=== PATIENT | male | born 1950 | race Caucasian/White ===

== ENCOUNTER 2024-11-16 15:48 | Outpatient (OUT) | payer MEDICARE, OTHER, SELFPAY ==
--- OUTSIDE RECORDS SUMMARY | 2024-07-09 06:00 | XMS_ITS ---
Author Organization [facility] Address [address] [place] [address] [place] [address] Support Name Relationship Address Phone Isabela Agustin Emergency Contact 04/[address] [place] [id number] Mk Agustin Guarantor Unknown Unavailable Care Team Providers Care Cookee Name Role Phone Erik Lopez Primary Care Provider UnavailJamarcus Moncada Unavailable [phone] REASON FOR VISIT rfc Encounters Encounter Location Date Provider Diagnosis [facility] [address] [place] [address] 07/09/2024 Jamarcus Truong Plan Of Treatment No Information Progress Notes * Mk AGUSTIN FDOB: [birth year] (74 yo M)Acc No.[id number]:07/09/2024 Patient: Mk MARTINEZ Provider: Rodney Truong DPM :1950 A ge:74 Y S ex:Male Date:07/09/2024 Phone: Address: [address] [place], [place] [phone] Pcp:Erik Lopez Subjective: * Chief Complaints: * 1 . Rfc. * Medical History: Objective: * Vitals: Assessment: Plan: * Treatment: * Images: * Electronic signature of [place] in DONOVAN Truong on 11/05/2024 at 03:26 PM EDT Sign off status: Pending * Provider: Rodney Truong DPM Date: 07/09/2024 Generated for [place] ng/Falubnag/eTransmitting on: 0 11/05/2024 03:26 PM EDT
--- OUTSIDE RECORDS SUMMARY | 2024-07-09 06:00 | XMS_ITS ---
Author Organization [facility] Address [address] [place] [address] Dr Hazel [place] [address] Support Name Relationship Address Phone Isabela Agustin Emergency Contact 04/01 [place] [phone] Mk Agustin Guarantor Unknown Unavailable Care Team Providers Care Cnc Mill Programmer Name Role Phone Erik Lopez Primary Care Provider UnavailJamarcus Moncada Unavailable [phone] REASON FOR VISIT rfc Encounters Encounter Location Date Provider Diagnosis [facility] [address] [place] [address] 07/09/2024 Jamarcus Truong Plan Of Treatment No Information Progress Notes * Mk AGUSTIN FDOB: [birth year] (74 yo M)Acc No.[id number]:07/09/2024 Patient: Mk MARTINEZ Provider: Rodney Truong DPM :1950 A ge:74 Y S ex:Male Date:07/09/2024 Phone: Address: [address] [place], [place] [phone] Pcp:Erik Lopez Subjective: * Chief Complaints: * 1 . Rfc. * Medical History: Objective: * Vitals: Assessment: Plan: * Treatment: * Images: * Electronic signature of [place] in DON[place] Truong on 11/16/2024 at 03:50 PM EDT Sign off status: Pending * Provider: Rodney Truong DPM Date: 0 07/09/2024 Generated for [place] ng/Falubnag/eTransmitting on: 0 11/16/2024 03:50 PM EDT
--- OUTSIDE RECORDS SUMMARY | 2024-10-25 23:59 | XMS_ITS | Continuity of Care Document ---
Demographics Address [address] [place], [place] [phone] Mobile Email Address Preferred Language en Marital Status Evangelical Affiliation Congregational Race White Ethnic Group Not or Lati no Author Organization [facility] Address [address] [place] [address] Support Name Relationship Address Phone MORR, SELENE spouse Unknown Unavailable MORR, SELENE S spouse Unknown Unavailable MORR, SELENE S spouse Unknown Unavailable MORR, SELENE S spouse Unknown Unavailable MORR, SELENE S spouse Unknown Unavailable MORR, SELENE S spouse Unknown Unavailable MORR, SELENE S spouse Unknown Unavailable MORR, SELENE S spouse Unknown Unavailable MORR, SELENE S spouse Unknown Unavailable MORR, SELENE S spouse Unknown Unavailable MORR, SELENE S spouse Unknown Unavailable MORR, SELENE S spouse Unknown Unavailable MORR, SELENE S spouse Unknown Unavailable MORR, SELENE S spouse Unknown Unavailable MORR, SELENE S spouse Unknown Unavailable MORR, SELENE S spouse Unknown Unavailable MORR, SELENE S spouse Unknown Unavailable MORR, SELENE S spouse Unknown Unavailable MORR, SELENE S spouse Unknown Unavailable MORR, SELENE S spouse Unknown Unavailable MORR, SELENE S spouse Unknown Unavailable MORR, SELENE S spouse Unknown Unavailable MORR, SELENE S spouse Unknown Unavailable MORR, SELENE S spouse Unknown Unavailable MORR, SELENE S spouse Unknown Unavailable MORR, SELENE S spouse Unknown Unavailable Care Team Providers Care Audiovisual Tech Name Role Phone Erik Lopez Primary Care Physician Unavail able Encounter FT_AMBFIN [id number] Date(s): 10/25/24 - 10/25/24 [facility] [address] [place] [address] Encounter Diagnosis Hypertension(Discharge Diagnosis) - 10/25/24 Prediabetes(Discharge Diagnosis) - 10/25/24 Hemorrhoid(Discharge Diagnosis) - 10/25/24 Abdominal weakness(Discharge Diagnosis) - 10/25/24 Somatic dysfunction of lumbar region(Discharge Diagnosis) - 10/25/24 Adult BMI 29.0-29.9 kg/sq m(Discharge Diagnosis) - 10/25/24 Chronic systolic congestive heart failure(Discharge Diagnosis) - 10/22/24 Paroxysmal SVT (supraventricular tachycardia)(Discharge Diagnosis) - 10/25/24 Arthritis of lumbosacral spine(Discharge Diagnosis) - 10/25/24 Spasm of lumbar paraspinous muscle(Discharge Diagnosis) - 10/25/24 Hip flexor tightness(Discharge Diagnosis) - 10/25/24 Somatic dysfunction of sacral spine(Discharge Diagnosis) - 10/25/24 Somatic dysfunction of lower extremities(Discharge Diagnosis) - 10/25/24 Discharge Disposition: Home (Routine DC) Attending Physician: Erik Lopez DO Encounter Type: Clinic Allergies, Adverse Reactions, Alerts Substance Criticality Severity Reaction Reaction Severity Status Tape Skin tear Active penicillins Rash Active Vitamin B-12 Low criticality Mild Hives A ctive Assessment and Plan Future Appointments Appointment Date:12/21/2024 01:00:00 PM Scheduled Provider: Location:[facility] Appointment Type: Medicare Wellness Subsequent Appointment Date:12/30/2024 09:45:00 AM Scheduled Provider:Hussein Cruz PA-C [facility]iology Follow Up (FT) Appointment Date:12/31/2024 08:20:00 AM Scheduled Provider:Erik Lopez DO Location:[facility] Appointment Type: Procedure Future Scheduled Tests Laboratory* HgbA1c 04/06/24 * TSH With T4fr Reflex 04/06/24 * CBC w/ Auto Diff 04/06/24 * Comprehensive Metabolic Panel 04/06/24 * Lipid Panel 04/06/24 Immunizations Given and Recorded Vaccine Date Status Refusal Reason influenza virus vaccine, inactivated 02/17/24 Give n influenza virus vaccine, inactivated 01/28/23 Give n influenza virus vaccine, inactivated 01/23/22 Give n influenza virus vaccine, inactivated 01/09/21 Paolo rded influenza virus vaccine, inactivated 01/28/20 Paolo rded influenza virus vaccine, inactivated 02/09/19 Paolo rded influenza virus vaccine, inactivated 01/14/18 Paolo rded influenza virus vaccine, inactivated 01/08/17 Paolo rded influenza virus vaccine, inactivated 12/29/15 Paolo rded diphtheria/pertussis, acel/tetanus adult 03/11/23 Given diphtheria/pertussis, acel/tetanus adult 05/14/10 Recorded SARS-CoV-2 (COVID-19) [id number] 03/15/22 Given SARS-CoV-2 (COVID-19) mRNA BNT-162b2 vax 02/09/21 Recorded SARS-CoV-2 (COVID-19) mRNA BNT-162b2 vax 1 06/05/20 Recorded SARS-CoV-2 (COVID-19) mRNA BNT-162b2 vax 2 05/15/20 Recorded SARS-CoV-2 (COVID-19) mRNA BNT-162b2 vax 05/05/20 Recorded pneumococcal 23-valent vaccine 03/21/20 Recorded pneumococcal 13-valent vaccine 02/15/19 Recorded influenza, whole 04/24/12 Recorded Not Given Vaccine Date Status Refusal Reason influenza virus vaccine, inactivated 12/02/23 Not Given Patient Refuses 1Result Comment: 2021-09-12: [id number] 2Result Comment: 2021-09-12: TPV70 Medications amiodarone 200 mg Tab 0.5, Oral, Daily, 100mg, Refills(s) 0 Start Date: 07/28/24 Status: Ordered Repeat number: 1 aspirin 81 mg Oral EC Tab 81 mg = 1 tab(s), Oral, Daily, # 30 tab(s), Refills(s) 3, Pharmacy: [facility] #[id number], 180, cm, 02/11/22 13:34:00 EST, Height/Length Dosing, 97, kg, 02/11/22 13:34:00 EST, Weight Dosing Start Date: 02/11/22 Status: Ordered Quantity: 30.0 Unit: tab(s) Repeat number: 4 atorvastatin 40 mg Tab 40 mg = 1 tab(s), Oral, Daily, # 90 tab(s), Refills(s) 3, Pharmacy: [facility]/pharmacy #[id number], 177, cm, 11/03/23 14:42:00 EDT, Height/Length Dosing, 96.2, kg, 11/03/23 14:42:00 EDT, Weight Dosing Start Date: 11/03/23 Status: Ordered Quantity: 90.0 Unit: tab(s) Repeat number: 4 carvedilol 3.125 mg Tab 3.125 mg = 1 tab(s), Oral, BID, # 180 tab(s), Refills(s) 3, [id number] 177, cm, 11/03/23 14:42:00 EDT, Height/Length Dosing, 96.2, kg, 11/03/23 14:42:00 EDT, Weight Dosing Start Date: 11/03/23 Status: Ordered Quantity: 180.0 Unit: tab(s) Repeat number: 4 diazepam 2 mg Tab TAKE 1 TABLET BY MOUTH EVERY 8 HOURS Start Date: 10/11/24 Status: Ordered Repeat number: 1 docusate sodium 100 mg Cap 100 mg = 1 cap(s), Oral, Daily, PRN for constipation, # 20 cap(s), Refills(s) 0 Start Date: 07/28/24 Status: Ordered Quantity: 20.0 Unit: cap(s) Repeat number: 1 duloxetine 30 mg oral delayed release capsule 30 mg = 1 cap(s), Oral, BID, # 180 cap(s), Refills(s) 4, [id number], cm, 12/02/23 9:24:00 EDT, Height/Length Dosing, 96.8, kg, 12/02/23 9:24:00 EDT, Weight Dosing Start Date: 12/02/23 Status: Ordered Quantity: 180.0 Unit: cap(s) Repeat number: 5 Indications: Other cervical disc degeneration, unspecified cervical region; Fish Oil Oral, Refill(s) 0 Start Date: 09/12/21 Status: Ordered Repeat number: 1 Jardiance 10 mg oral tablet 10 mg = 1 tab(s), Oral, qAM, Refills(s) 0 Start Date: 07/28/24 Status: Ordered Repeat number: 1 Misc Medication Daily Start Date: 11/01/22 Status: Ordered Repeat number: 1 multivitamin with minerals Oral, Daily, Refill(s) 0 Start Date: 09/10/22 Status: Ordered Repeat number: 1 spironolactone 25 mg Tab 12.5 mg = 0.5 tab(s), Oral, Daily, Refills(s) 0 Start Date: 07/28/24 Status: Ordered Repeat number: 1 Turmeric mg, Oral, Daily, Refill(s) 0 Start Date: 09/12/21 Status: Ordered Repeat number: 1 valsartan 40 mg Tab 40 mg = 1 tab(s), Oral, BID, short term rx -, X 7 day(s), # 14 tab(s), Refills(s) 0, Pharmacy: [facility]/pharmacy #[id number], 180, cm, 10/25/24 15:13:00 EDT, Height/Length Dosing, 96.9, kg, 10/25/24 15:09:00 EDT, Weight Dosing Start Date: 10/25/24 Stop Date: 11/01/24 Status: Ordered Quantity: 14.0 Unit: tab(s) Repeat number: 1 Indications: Essential (primary) hypertension; Problem List Condition Confirmation Course Effective Dates Status H ealth Status Informant Abdominal weakness Confirmed Active Anemia Confirmed Active Anxiety Confirmed Active Arthritis of lumbosacral spine Confirmed Active Shoulder arthritis Confirmed Active CMC arthritis Confirmed Active Hematuria Confirmed Active Nonischemic cardiomyopathy 1 Confirmed Active Carpal tunnel syndrome, bilateral Confirmed Active Cervical radiculopathy Confirmed Active Somatic dysfunction of cervical region Confirmed Active Cervical spondylosis Confirmed Active Chest pain Confirmed Active Chronic systolic congestive heart failure 2 Confirmed Active Claustrophobia Confirmed Active DDD (degenerative disc disease), cervical Confirmed Active Diastasis recti Confirmed Active Tortuous aorta 3 Confirmed Active Hip flexor tightness Confirmed Active Dyspnea on exertion Confirmed Active Hemorrhoid Confirmed Active History of penile implant Confirmed Active Hypertension Confirmed Active IT band syndrome Confirmed Active Cerumen impaction Confirmed Active Left ventricular hypertrophy Confirmed Active Lipoma of back Confirmed Active Cancer of prostate Confirmed Active PVC's (premature ventricular contractions) Confirmed Active Trapezius muscle spasm Confirmed Active LETITIA (obstructive sleep apnea) Confirmed Active Paroxysmal SVT (supraventricular tachycardia) Confirmed Active Pleuritis Confirmed Active Poor posture Confirmed Active Prediabetes Confirmed Active Radicular low back pain Confirmed Active Seborrhea Confirmed Active Skin lesion Confirmed Active Somatic dysfunction of head region Confirmed Active Somatic dysfunction of lower extremities Confirmed Active Somatic dysfunction of lumbar region Confirmed Active Somatic dysfunction of sacral spine Confirmed Active Somatic dysfunction of thoracic region Confirmed Active Somatic dysfunction of upper extremities Confirmed Active Spasm of cervical paraspinous muscle Confirmed Active Spasm of lumbar paraspinous muscle Confirmed Active 1Noted in 07/18/2022 cardio note, added per outpatient CDI policy. 2Added per outpatient CDI policy and Dr. Lopez query response based on:Problem list- Diastolic CHF 08/12/2024 outside records- Acute heart failure with reduced ef , page 6- history of unspecified cardiac arrhythmia 10/11/2024 cardio -3. Chronic systolic heart failure (I50.22: Chronic systolic (congestive) heart failure) Patient has history of CHF. EF was down to 35% per patient when he was in [facility]. Patient was started on Jardiance 10 mg daily, valsartan 40 mg daily, spironolactone 12.5 mg daily and has continued on carvedilol 3.125 mg twice daily. Patient has blood pressure on the low side of normal and does admit to some lightheadedness at times. Will have patient continue with current medications at this time. If needed discontinue medication, likely will be carvedilol given his low heart rate as well. Will have patient continue to monitor symptoms and contact us if she continues to have issues. Follow-up with me in 3 months or sooner if needed 04/08/2023 office note-6. Diastolic CHF (I50.30: Unspecified diastolic (congestive) heart failure) Chronic Stable Pending evaluation by specialist through [facility] Encouraged the patient to f/u as planned 04/12/2024 office note-History of Present Illness 73-year-old male with past medical history significant for anxiety, prostate cancer, carpal tunnel,degenerative disc disease, diastolic heart failure, sleep apnea, nonischemic cardiomyopathy, paroxysmal SVT, prediabetes, anxiety, hyperlipidemia patient of Dr. Lopez presents with cough congestionfor 4 days. COVID test at home was negative. COVID test here in the office was positive 09/21/2024 office note-July 30, 2024 - Cardiology - Hussein Cruz PA-C noted hospitalization while in [place] --- went to the ED for rectal bleed, found to have frequent PVCs evaluated with echo and left heart cath PVC ablation started on amiodarone for PVCs as well as carvedilol having some dizziness at home with low HR 1. PVCs on new meds -- requesting referral to EP cardiology *jo 2. CAD - recent cath in [place] revealed mild disease; on aspirin 81mg, atorvastatin 40mg and cardvedilol 3.125mg BID; asymptomatic 3. CHF - ef down to 35% -- started on jardiance 10mg, valsartan 40mg and spironolactone 12.5mg daily 3added per 04/07/2023 query response. Procedures Procedure Date Related Diagnosis Body Site Status Ablation 1 07/05/24 Completed Colonoscopy 2 07/04/24 Completed Catheterization of left heart 3 07/02/24 Completed Injection of steroid into sh oulder joint 04/02/24 Completed Injection of right shoulder 12/26/23 Completed Right shoulder injection 4 08/28/23 Completed Shoulder injection 5 03/28/23 Comp leted Epidural injection of cervic al spine using fluoroscopic guidance 6 10/16/22 Co mpleted MRI with sedation 09/13/22 Complet ed Catheterization of left heart 01/17/22 Completed Lipoma of back 7 Complete d Procedure 8 Completed Prostate 9 Completed Tooth extraction Complete d Tooth extraction Complete d Unlisted procedure, foot or toes Completed Vasectomy Completed 1Done at [facility] in [facility] 2Done at [facility] 3Done in [facility] 4100% until last week 5100% relief for 5 months 6C7/T1 TONO 25 % relief, can turn more to the left 7removal 8Infrapubic coloplast 9removed Social History Social History Type Response Smoking Status Never (less than 100 in lifetime);Never; Concerns about tobacco use in household: No entered on: 10/11/24 Sex Male Sex Representation Male (finding) Hospital Discharge Instructions Patient Education 10/25/2024 15:53:25 Heat Therapy, [id number] Heat Therapy Heat therapy can help ease sore, stiff, injured, and tight muscles and joints. Heat relaxes your muscles. This may help ease your pain and muscle spasms. What are the risks? If you have any of the following conditions, do not use heat therapy unless your doctor says it is okay. These conditions include: ??? New bruises. ??? Open wounds. ??? Any of these in the area being treated: ??? Healing wounds. ??? Infected skin. ??? Scarred skin. ??? Problems with how blood moves through your body (circulation). ??? Loss of feeling (numbness) in the part of your body that is being treated. ??? Unusual swelling of the part of the body that is being treated. ??? Blood clots. ??? Diabetes. ??? Heart disease. ??? Cancer. ??? Not being able to communicate pain. This may include young children and people who have problems with their brain function (dementia). How to use heat therapy There are different kinds of heat therapy. These include: ??? Moist heat pack. ??? Hot water bottle. ??? Electric heating pad. ??? Heated gel pack. ??? Heated wrap. ??? Warm water bath. Your doctor will tell you how to use heat therapy. In general, you should: 1. Place a towel between your skin and the heat source. 2. Leave the heat on for 20???30 minutes. Your skin may turn pink. 3. Take off the heat if your skin turns bright red. This is very important. If you cannot feel pain, heat, or cold, you have a greater risk of getting burned. Your doctor may also tell you to take a warm water bath. To do this: 1. Put a non-slip pad in the bathtub to prevent a fall. 2. Fill the bathtub with warm water. 3. Check the water temperature. 4. Soak in the water for 15???20 minutes, or as told by your doctor. 5. Be careful when you stand up after the bath. You may feel dizzy. 6. Pat yourself dry after the bath. Do not rub your skin to dry it. General recommendations for heat therapy ??? Be careful not to burn your skin when using heat therapy. High heat or using heat for a long time can cause gann. ??? Do not sleep while using heat therapy. Only use heat therapy while you are awake. ??? Check your skin during heat therapy. ??? Do not use heat therapy if you have a new injury, especially if you have swelling on the injured area. ??? Do not use heat therapy on areas of your skin that are already irritated, such as with a rash or sunburn. ??? Do not use heat therapy if your skin turns bright red. Contact a doctor if: ??? You have blisters, redness, swelling, or loss of feeling in the area where you use heat therapy. ??? You have new pain. ??? You have pain that gets worse. Summary ??? Heat therapy is the use of heat to help ease sore, stiff, injured, and tight muscles and joints. ??? There are different types of heat therapy. Your doctor will tell you which one to use. ??? Only use heat therapy while you are awake. ??? Watch your skin to make sure you do not get burned while using heat therapy. This information is not intended to replace advice given to you by your health care provider. Make sure you discuss any questions you have with your health care provider. Document Revised: 01/17/2021 Document Reviewed: 01/17/2021 ElseMineWhat Patient Education ?? 2023 [employer]. Follow Up Care 09/21/2024 12:27:05 With:Erik oLpez DO, GERALD, PED Address: [address] [place] [id number] When:1 month Comments:OMT PRN??- 40 min slotTo go instructions (for follow up):On the day of manipulation, I strongly encourage you??to to drink more water to help flush your system after today's treatmentWork on using your core muscles more when standing and sitting, and especially when leaning away from your centerline or when lifting thingsThis may take some concentration and work initially but it will eventually become more natural to youWork on shoulder retraction exercisesFor patients who can tolerate anti-inflammatories and/or tylenol, those medications can help provide some comfort while you work on optimizing functionGetting adequate rest is important for managing musculoskeletal painF/u 1 month or PRN Patient Care team information Care Team Personnel Name: Radha Shipman RN Position: FT Mail Inserter - Self Assign Member Role: Financial Counselor Name: Erik Lopez DO Position: FT Ambulatory - Primary Care Provider? Member Role: Primary Care Physician Address: [address] [place] [phone] [place] Care Team Related Persons Name: SELENE JAMES Name: SELENE JAMES Name: SELENE JAMES Name: SELENE JAMES Name: SELENE JAMES Insurance Providers Guarantor name: DOYLE Miller ERIKA Health Plan Information #: 1 Payer: NA Payer Identifier: [id number] Member Number: [id number] Group Number: [id number] Subscriber Identifier: [id number] Relationship to Subscriber: Self Coverage Type: MEDICARE Coverage Verification Date: 24 Telecom: ARLETH Address: Health Plan Information #: 2 Payer: ARLETH Payer Identifier: ARLETH Member Number: [id number] Group Number: [id number] Subscriber Identifier: [id number] Relationship to Subscriber: Self Coverage Type: PRIVATE HEALTH INSURANCE Coverage Verification Date: ARLETH Telecom: ARLETH Address:
--- OUTSIDE RECORDS SUMMARY | 2024-11-05 15:25 | XMS_ITS | Encounter Summary ---
Demographics Address [address] [place] [address] Home Phone Mobile Phone Phone Email Address Preferred Language ENG Marital Status Latter-Day Affiliation Unknown Race White Ethnic Group Not or Lati no Author Organization [facility] Address [facility] [place] [address] Support Name Relationship Address Phone Isabela Agustin Spouse [address] [place] [address] Care Team Providers Care Padding Machine Operator Name Role Phone Bipin Ornelas MD Primary Care Provider Nato Rosario MD Unavailable [phone] John BLANDON DO, Robert James Primary Care Provid er John BLANDON DO, Robert James Unavailable [phone] Source Comments In the event this information is protected by the Federal Confidentiality of Alcohol and Drug AbusePatient Records regulations: The Federal rules restrict any use of the information to criminally investigate or prosecute any alcohol or drug abuse patient.[facility] Encounter Details Date Type Department Care Team (Late st Contact Info) Description 11/11/2019 Patient Msg Urology [address] [place] [address] Erik Cassidy MD [address] [place] [address] PSA Social History Tobacco Use Types Packs/Day Years Used Date Smoking Tobacco: Never Smokeless Tobacco: Never Alcohol Use Standard Drinks/Week Comments Yes 0 (1 standard drink = 0.6 oz pur e alcohol) 3 drinks per week PHQ-2 Answer Date Recorded PHQ2 Score 0 09/03/2018 Sex and Gender Information Value Date Recorded Sex Assigned at Male 11/17/2019 1:04 AM EDT Legal Sex Male 9:48 AM EST Gender Identity Male 11/17/2019 1:04 AM EDT Sexual Orientation Bisexual 11/17/2019 1: 04 AM EDT COVID-19 Exposure Response Date Recorded In the last month, have you been in contact with someone who was confirmed or suspected to have Coronavirus / COVID-19? No / Unsure 11/10/2019 10:37 AM EDT documented as of this encounter Functional Status * Are you deaf or do you have serious difficulty hearing? Answer Date of Assessment Author No 09/04/2018 4:07 PM Isela Grier RN * Are you blind or do you have serious difficulty seeing, even when wearing glasses? Answer Date of Assessment Author No 09/04/2018 4:07 PM Isela Grier RN * Do you have serious difficulty walking or climbing stairs? Answer Date of Assessment Author No 09/04/2018 4:07 PM Isela Grier RN * Do you have difficulty dressing or bathing? Answer Date of Assessment Author No 09/04/2018 4:07 PM Isela Grier RN * Because of a physical, mental, or emotional condition, do you have difficulty doing errands alone such as visiting a doctor's office or shopping? Answer Date of Assessment Author No 09/04/2018 4:07 PM Isela Grier RN documented as of this encounter Mental Status * Because of a physical, mental, or emotional condition, do you have serious difficulty concentrating, remembering, or making decisions? Answer Entry Date Author No 09/04/2018 4:07 PM Isela Grier RN documented in this encounter Plan of Treatment Upcoming Encounters Date Type Department Care Team (Late st Contact Info) Description 12/29/2024 9:30 AM EDT Office Visit Orthopaedics [address] [place] [address] Mary Lemus PA-C [address] [place] [address] 4 month f/u 02/25/2025 2:00 PM EST Office Visit Urology [address] [place] [phone] Ellie Arroyo APRN.PERSONNEL RECORDS CLERK [address] [place] [address] FOLLOW UP 03/07/2025 10:00 AM EST Office Visit [facility] Laboratory [address] [address] Lab 03/14/2025 10:00 AM EST Office Visit Radiation Oncology [address] [place] [address] Sigifredo Corona MD [address] [place] [address] Lab 04/07/2025 9:30 AM EST Office Visit Urology [address] [place] [phone] Janell Hill MD [address] [place] [address] 6 month Cystoscopy documented as of this encounter Visit Diagnoses Not on filedocumented in this encounter Care Teams Padding Machine Operator Relationship Specialty Start Date End Date Bipin Ornelas MD [address] [place] [address] PCP - General Family Medicine 08/25/18 03/04/23 Erik Lopez II, DO [address] [place] [address] [place] [address] PCP - General Family Medicine 03/05/23 Nato Rosario MD [address] [place] [address] Physician Radiation Oncology 11/24/19 Erik oLpez II, DO [address] [place] [address] Referring Family Medicine 10/22/23 documented as of this encounter
--- OUTSIDE RECORDS SUMMARY | 2024-11-05 15:25 | XMS_ITS | Encounter Summary ---
Demographics Address [address] [place] [address] Home Phone Mobile Phone Phone Email Address Preferred Language ENG Marital Status Adventist Affiliation Unknown Race White Ethnic Group Not or Lati no Author Organization [facility] Address [address] [place] [address] Support Name Relationship Address Phone Isabela Agustin Spouse [address] [place] [address] Care Team Providers Care Class C Driver Name Role Phone Nato Rosario MD Unavailable [phone] John BLANDON DO, Robert James Primary Care [facility] er John BLANDON DO, Robert James Unavailable [phone] Source Comments In the event this information is protected by the Federal Confidentiality of Alcohol and Drug AbusePatient Records regulations: The Federal rules restrict any use of the information to criminally investigate or prosecute any alcohol or drug abuse patient.[facility] Encounter Details Date Type Department Care Team (Late st Contact Info) Description 08/08/2023 Patient Msg Pre Anesthesia [address] [place] [address] Provider, [facility] Appointment Social History Tobacco Use Types Packs/Day Years Used Date Smoking Tobacco: Never Smokeless Tobacco: Never Alcohol Use Standard Drinks/Week Comments Yes 0 (1 standard drink = 0.6 oz pur e alcohol) 3 drinks per week AUDIT-C Answer Date Recorded Q1: How often do you have a drink containing alc ohol? 2-3 times a week 11/25/2019 Average Number of Drinks Not on file 020 Frequency of Binge Drinking Not on file 10/30 PHQ-2 Answer Date Recorded PHQ-2 score 0 03/06/2023 Area Deprivation Index Answer Date Paolo rded National Score (1-100), lower number is lower ri sk 77 09/05/2022 State Score (1-10), lower number is lower risk 6 09/05/2022 Data from: https://www.neighborhoodatlas.[facility]/. Last address used for calculation [address] [facility] 09/05/2022 Sex and Gender Information Value Date Recorded Sex Assigned at Male 11/17/2019 1:04 AM EDT Legal Sex Male 9:48 AM EST Gender Identity Male 11/17/2019 1:04 AM EDT Sexual Orientation Bisexual 11/17/2019 1: 04 AM EDT documented as of this encounter [...] 9:30 AM EDT Office Visit Orthopaedics [address] [place] [address] Mary Lemus PA-C [address] [place] [address] 4 month f/u 02/25/2025 2:00 PM EST Office Visit Urology [address] [place] [address] Ellie Arroyo APRN.BENCH LATHE OPERATOR [address] [place] [address] FOLLOW UP 03/07/2025 10:00 AM EST Office Visit [facility] Laboratory [address] [place] [address] Lab 03/14/2025 10:00 AM EST Office Visit Radiation Oncology [address] [place] [address] Sigifredo Corona MD [address] [place] [address] Lab 04/07/2025 9:30 AM EST Office Visit Urology [address] [place] [address] Janell Hill MD [address] [place] [address] 6 month Cystoscopy documented as of this encounter Visit Diagnoses Not on filedocumented in this encounter Care Teams Class C Driver Relationship Specialty Start Date End Date Erik Lopez II, DO [address] [facility] [address] [address] [place] [address] PCP - General Family Medicine 03/05/23 Nato Rosario MD [address] [facility] [place] [address] Physician Radiation Oncology 11/24/19 Erik Lopez II, DO [address] [place] [address] Referring Family Medicine 10/22/23 documented as of this encounter
--- OUTSIDE RECORDS SUMMARY | 2024-11-05 15:25 | XMS_ITS | Encounter Summary ---
Demographics Address [address] [place] [address] Home Phone Mobile Phone Phone Email Address Preferred Language ENG Marital Status Scientologist Affiliation Unknown Race White Ethnic Group Not or Lati no Author Organization [facility] Address [address] [place], [place] [id number] Support Name Relationship Address Phone Isabela Agustin Spouse [address] [place] [address] Care Team Providers Care Diamond Mounter Name Role Phone Charles Hummel MD Primary Care Provider Bipin Ornelas MD Primary Care Provider Nato Rosario MD Unavailable [phone] John BLANDON DO, Robert James Primary Care Provid er John BLANDON DO, Robert James Unavailable [phone] Source Comments In the event this information is protected by the Federal Confidentiality of Alcohol and Drug AbusePatient Records regulations: The Federal rules restrict any use of the information to criminally investigate or prosecute any alcohol or drug abuse patient.[facility] Encounter Details Date Type Department Care Team (Latest Contact Info) Description 03/07/2002 Prob Sum Review Provider, Cckanika Social History Tobacco Use Types Packs/Day Years Used Date Smoking Tobacco: Never Assessed Sex and Gender Information Value Date Recorded Sex Assigned at Male 11/17/2019 1:04 AM EDT Legal Sex Male 9:48 AM EST Gender Identity Male 11/17/2019 1:04 AM EDT Sexual Orientation Bisexual 11/17/2019 1: 04 AM EDT documented as of this encounter Plan of Treatment Upcoming Encounters Date Type Department Care Team (Late st Contact Info) Description 12/29/2024 9:30 AM EDT Office Visit Orthopaedics [address] [place] [address] Mary Lemus PA-C [address] [place] [address] 4 month f/u 02/25/2025 2:00 PM EST Office Visit Urology [address] [place] [address] Ellie Arroyo APRN.PROPAGATION MANAGER [address] [place], [place] [address] FOLLOW UP 03/07/2025 10:00 AM EST Office Visit [facility] Laboratory [address] [place] [address] Lab 03/14/2025 10:00 AM EST Office Visit Radiation Oncology [address] [place] [address] Sigifredo Corona MD [address] [place] [address] Lab 04/07/2025 9:30 AM EST Office Visit Urology [address] [place] [address] Janell Hill MD [address] [place] [address] 6 month Cystoscopy documented as of this encounter Visit Diagnoses Not on filedocumented in this encounter Care Teams Diamond Mounter Relationship Specialty Start Date End Date Charles Hummel MD [address] [place] [address] PCP - General 05/14/01 08/24/18 Bipin Ornelas MD [address] [place] [address] PCP - General Family Medicine 08/25/18 03/04/23 Erik Lopez II, DO [address] [place], [place] [address] [address] PCP - General Family Medicine 03/05/23 Nato Rosario MD [address] [place] [address] [place] [address] Physician Radiation Oncology 11/24/19 Erik Lopez II, DO [address] [place] [address] Referring Family Medicine 10/22/23 documented as of this encounter
--- OUTSIDE RECORDS SUMMARY | 2024-11-05 15:25 | XMS_ITS | Encounter Summary ---
Demographics Address [address] [place] [address] Home Phone Mobile Phone Phone Email Address Preferred Language ENG Marital Status Bahai Affiliation Unknown Race White Ethnic Group Not or Lati no Author Organization [facility] Address [address] [place] [address] Support Name Relationship Address Phone Isabela Agustin Spouse [address] [place] [address] Care Team Providers Care Chemist Intern Name Role Phone Nato Rosario MD Unavailable [phone] John BLANDON DO, Robert James Primary Care Provid er John BLANDON DO, Robert James Unavailable [phone] Source Comments In the event this information is protected by the Federal Confidentiality of Alcohol and Drug AbusePatient Records regulations: The Federal rules restrict any use of the information to criminally investigate or prosecute any alcohol or drug abuse patient.[facility] Encounter Details Date Type Department Care Team (Late st Contact Info) Description 09/07/2024 Patient Msg Cardiology [address] [place] [address] Alana Dumont APRN.OPTIC FIBRE DRAWER [address] [place] [address] Appointment Cancellation Request Social History Tobacco Use Types Packs/Day Years [...] PHQ-2 Answer Date Recorded PHQ-2 score 0 08/04/2024 Area Deprivation Index Answer Date Paolo rded National Score (1-100), lower number is lower ri sk 77 09/05/2022 State Score (1-10), lower number is lower risk 6 09/05/2022 Data from: https://www.neighborhoodatlas.[facility].edu/. Last address used for calculation [address] [facility] 09/05/2022 Sex and Gender Information Value Date [...] 9:30 AM EDT Office Visit Orthopaedics [address] [place] [address] Mary Lemus PA-C [address] [place] [address] 4 month f/u 02/25/2025 2:00 PM EST Office Visit Urology [address] [place] [address] Ellie Arroyo APRN.OPTIC FIBRE DRAWER [address] [place] [address] FOLLOW UP 03/07/2025 10:00 AM EST Office Visit [facility] Laboratory [address] [place] [address] [place] [address] Lab 03/14/2025 10:00 AM EST Office Visit Radiation Oncology [address] [place] [address] [place] [address] Sigifredo Corona MD [address] [facility] [place] [address] Lab 04/07/2025 9:30 AM EST Office Visit Urology [address] [place] [address] Janell Hill MD [address] [place], [place] [address] 6 month Cystoscopy documented as of this encounter Goals Goal Patient Goal Type Associated Problems Recent Progress Patient-Stated? Author Blood Pressure < 130/80 Blood Pressure 132/72( 025 3:01 PM EDT) Yuan Verdugo MD documented as of this encounter Visit Diagnoses Not on filedocumented in this encounter Care Teams Chemist Intern Relationship Specialty Start Date End Date Erik Lopez II, [address] [place] [place] [address] [place] [address] PCP - General Family Medicine 03/05/23 Nato Rosario MD [address] [place] [address] [place] [address] Physician Radiation Oncology 11/24/19 Erik Lopez II, DO [address] [place] [address] Referring Family Medicine 10/22/23 documented as of this encounter
--- OUTSIDE RECORDS SUMMARY | 2024-11-05 15:25 | XMS_ITS | Clinical Summary ---
Author Organization [facility] Address [address] [place] [address] Care Team Providers Care Electric Shovel Operator Name Role Phone Erik Lopez MD Primary Care Provider [phone] Allergies Active Allergy Reactions Criticality Noted Date Comments Adhesive Tape-Silicones Unknown 09/29/2024 Patient wore heart monitor and gave patient a wound Cyanocobalamin (Vitamin B-12) Unknown Low 2024 Penicillins Rash Low 01/31/2016 Vitamin B Rash Low 07/08/2018 Medications albuterol 90 mcg/actuation inhaler Inhale 2 puffs if needed. 8 Active amiodarone (Pacerone) 200 mg tablet Take 200 mg by mouth in the morning. 5 07/26/19 26 Active atorvastatin (Lipitor) 40 mg tablet Take 40 mg by mouth in the morning. 2 Active carvedilol (Coreg) 3.125 mg tablet Take 3.125 mg by mouth with breakfast and with evening meal. 2 Active aspirin 81 mg EC tablet Take 81 mg by mouth in the morning. 2 Active diazePAM (Valium) 2 mg tablet Take 2 mg by mouth every 12 (twelve) hours if needed. 1 Active DULoxetine (Cymbalta) [address] capsule Take 60 mg by mouth two times daily. 4 Active DOCOSAHEXAENOIC ACID ORAL Take 1 capsule by mouth in the morning. Active Jardiance 10 mg Take 10 mg by mouth in the morning. 5 Active spironolactone (Aldactone) 25 mg tablet Take 12.5 mg by mouth in the morning. Active valsartan (Diovan) 40 mg tablet Take 40 mg by mouth in the morning. Active Active Problems Problem Noted Date Diagnosed Date Abdominal weakness 10/05/2024 Anemia 10/05/2024 Arthritis of lumbosacral spine 10/05/2024 Bronchiectasis 10/05/2024 Carpal tunnel syndrome, bilateral 10/05/2024 Cervical radiculopathy 10/05/2024 Chest pain 10/05/2024 Claustrophobia 10/05/2024 CMC arthritis 10/05/2024 COVID-19 10/05/2024 Diastasis recti 10/05/2024 Diastolic CHF 10/05/2024 HANSEN (dyspnea on exertion) 10/05/2024 Hematuria 10/05/2024 Hip flexor tightness 10/05/2024 History of penile implant 10/05/2024 HLD (hyperlipidemia) 10/05/2024 IT band syndrome 10/05/2024 Left ventricular hypertrophy 10/05/2024 Lipoma of back 10/05/2024 Pleuritis 10/05/2024 Poor posture 10/05/2024 Prediabetes 10/05/2024 Seborrhea 10/05/2024 Skin lesion 10/05/2024 Somatic dysfunction of head region 10/05/2024 Somatic dysfunction of sacral spine 10/05/2024 Somatic dysfunction of cervical region Spasm of lumbar paraspinous muscle 10/05/2024 Acute heart failure with red uced ejection fraction (HFrEF, <= 40%) 07/02/2024 Internal hemorrhoids 07/02/2024 Rectal bleeding 06/30/2024 Diverticulosis 06/29/2024 Gastrointestinal hemorrhage 06/29/2024 Hematochezia 06/29/2024 NICM (nonischemic cardiomyopathy) 09/10/2023 Overview (10/05/2024): Noted in 07/18/2022 cardio note, added per outpatient CDI policy. Disorder of aorta 08/21/2023 Overview (10/05/2024): added per 04/07/2023 query response. Supraventricular tachycardia 08/21/2023 Obstructive sleep apnea syndrome 12/21/2021 Erectile dysfunction after radical prostatectomy 02/03/2019 History of prostate cancer 02/03/2019 Anxiety 08/25/2018 PVC (premature ventricular contraction) 08/26/19 Prostate cancer 07/08/2018 Pulmonary hypertension 04/08/2017 Amniotic band syndrome affecting multiple toes Encounters Date Type Department Care Team Description 10/05/2024 1:45 PM EDT Office Visit [facility] [address] [facility] [place] [address] Bryan Landeros MD PVC (premature ventricular contraction) (Primary Dx) 10/05/2024 Orders Only [facility] [address] [facility] [place] [address] Cheryl Cai MA Abnormal EKG (Primary Dx) from Last 3 Months Family History Medical History Relation Name Comments Heart failure Mother Relation Name Status Comments Father Mother Social History Tobacco Use Types Packs/Day Years Used Date Smoking Tobacco: Never Smokeless Tobacco: Never Tobacco Cessation:Counseling Given: Not Answered Alcohol Use Standard Drinks/Week Comments Yes 0 (1 standard drink = 0.6 oz pur e alcohol) occasional Sex and Gender Information Value Date Recorded Sex Assigned at Not on file Legal Sex Male 11:06 AM EDT Gender Identity Not on file Sexual Orientation Not on file Last Filed Vital Signs Vital Sign Reading Time Taken Comments Blood Pressure 110/70 10/05/2024 2:04 PM EDT Pulse 55 10/05/2024 2:04 PM EDT Temperature - - Respiratory Rate - - Oxygen Saturation 95% 10/05/2024 2:04 PM EDT Inhaled Oxygen Concentration - - Weight 96.2 kg (212 lb) 10/05/2024 2:04 PM EDT Height 180.3 cm (5' 11 ) 10/05/2024 2:04 PM EDT Body Mass Index 29.57 10/05/2024 2:04 PM EDT Plan of Treatment Upcoming Encounters Date Type Department Care Team (Late st Contact Info) Description 11/30/2024 11:45 AM EDT Office Visit [facility] [address] [place] [address] Bryan Landeros MD [address] [place] [address] Health Maintenance Due Date Last Done Comments Diabetes: Hemoglobin A1C 1950 Medicare Annual Wellness (AWV) 1950 Depression Screening 1960 Zoster Vaccines (1 of 2) 1998 Fall Risk Screening 2013 COVID-19 Vaccine ( season) 2023 03/28/2023, 03/15/2022, 02/09/2021, Additional history exists Influenza Vaccine (#1) 2024 , 01/28/2023, 01/23/2022, Additional history exists Adult Tetanus 03/11/2033 03/11/2023, 05/14/2010 Pneumococcal Vaccine: 50+ Years Completed 03/21/2020, 02/15/2019 HIB Vaccines Aged Out No longer eligi ble based on patient's age to complete this topic HPV Vaccines Aged Out No longer eligi ble based on patient's age to complete this topic IPV Vaccines Aged Out No longer eligi ble based on patient's age to complete this topic Meningococcal B Vaccine Aged Out No l onger eligible based on patient's age to complete this topic Meningococcal Vaccine Aged Out No emma jazmine eligible based on patient's age to complete this topic Rotavirus Vaccines Aged Out No longer eligible based on patient's age to complete this topic Procedures Procedure Name Priority Date/Time Associated Diagnosis Comments ECG 12 LEAD UNIT PERFORMED Routine 10/05/2024 2:32 PM EDT PVC (premature ventricular contraction) from Last 3 Months Results * ECG 12 lead unit performed (10/05/2024 2:32 PM EDT) Bryan Landeros MD ECG ORDERABLES Final Result from Last 3 Months Insurance MEDICARE GENERIC COMMERCIAL Care Teams Electric Shovel Operator Relationship Specialty Start Date End Date Erik Lopez MD [address] [place] [address] PCP - General Family Medicine 10/05/24
--- OUTSIDE RECORDS SUMMARY | 2024-11-05 15:25 | XMS_ITS | Encounter Summary ---
Demographics Address [address] [place] [address] Home Phone Mobile Phone Phone Email Address Preferred Language ENG Marital Status Taoist Affiliation Unknown Race White Ethnic Group Not or Lati no Author Organization [facility] Address [facility] [place] [address] Support Name Relationship Address Phone Isabela Agustin Spouse [address] [place] [address] Care Team Providers Care Certified Ophthalmic Technologist Name Role Phone Nato Rosario MD Unavailable [phone] John BLANDON DO, Robert James Primary Care [facility] er John BLANDON DO, Robert James Unavailable [phone] Source Comments In the event this information is protected by the Federal Confidentiality of Alcohol and Drug AbusePatient Records regulations: The Federal rules restrict any use of the information to criminally investigate or prosecute any alcohol or drug abuse patient.[facility] Encounter Details Date Type Department Care Team (Late st Contact Info) Description 09/09/2024 Patient [facility] [place] [address] Jordyn Multani RPh At your next appointment, choose [facility]. Social History Tobacco Use Types Packs/Day Years [...] is lower risk 6 09/05/2022 Data from: https://www.neighborhoodatlas.[facility]/. Last address used for calculation [address]01 [facility] 09/05/2022 Sex and Gender Information Value [...] 9:30 AM EDT Office Visit Orthopaedics [address] [place] [address] Mary Lemus PA-C [address] [place] [address] 4 month f/u 02/25/2025 2:00 PM EST Office Visit Urology [address] [place] [place] [phone] Ellie Arroyo APRN.SUPERVISOR YARD [address] [place] [address] FOLLOW UP 03/07/2025 10:00 AM EST Office Visit [facility] Laboratory [address] [place] [address] Lab 03/14/2025 10:00 AM EST Office Visit Radiation Oncology [address] [place] [address] Sigifredo Corona MD [address] [place] [address] Lab 04/07/2025 9:30 AM EST Office Visit Urology [address] [place] [phone] Janell Hill MD [address] [place] [address] 6 month Cystoscopy documented as of this encounter Goals Goal Patient Goal Type Associated Problems Recent Progress Patient-Stated? Author Blood Pressure < 130/80 Blood Pressure 132/72( 025 3:01 PM EDT) Yuan Verdugo MD documented as of this encounter Visit Diagnoses Not on filedocumented in this encounter Care Teams Certified Ophthalmic Technologist Relationship Specialty Start Date End Date Erik Lopez II, DO [address] [facility] [place] [address] PCP - General Family Medicine 03/05/23 Nato Rosario MD [address] [place] [address] [place] [address] Physician Radiation Oncology 11/24/19 Erik Lopez II, DO [address] [place] [address] Referring Family Medicine 10/22/23 documented as of this encounter
--- OUTSIDE RECORDS SUMMARY | 2024-11-05 15:25 | XMS_ITS | Clinical Summary ---
Demographics Address [address] [place] [address] Home Phone Mobile Phone Preferred Language en Marital Status Anglican Affiliation Unknown Race White Ethnic Group Not or Lati no Author Organization [facility] Address [address] [place] [address] Phone Care Team Providers Care Pin Inserter Regulator Name Role Phone Erik Lopez DO Primary Care Provider + Encounters Date Type Department Care Team Description 09/11/2024 Lab Requisition [facility] [address] [place] [phone] Matt Thomas MD from Last 3 Months Social History Tobacco Use Types Packs/Day Years Used Date Smoking Tobacco: Never Assessed Sex and Gender Information Value Date Recorded Sex Assigned at Not on file Legal Sex Male 6:58 AM EST Gender Identity Not on file Sexual Orientation Not on file Last Filed Vital Signs Vital Sign Reading Time Taken Comments Blood Pressure 108/68 08/27/2022 11:19 AM EDT Pulse 53 08/27/2022 11:19 AM EDT Temperature - - Respiratory Rate - - Oxygen Saturation - - Inhaled Oxygen Concentration - - Weight 101 kg (222 lb 4 oz) 08/27/2022 11:19 AM EDT Height 180.3 cm (5' 11 ) 08/27/2022 11:19 AM EDT Body Mass Index 31 08/27/2022 11:19 AM EDT Plan of Treatment Health Maintenance Due Date Last Done Comments Lipid Panel 1950 Yearly Adult Physical 1950 Hepatitis C Screening 1966 DTaP/Tdap/Td Vaccines (1 - Tdap) 1970 Pneumococcal Vaccine (1 of 1 - PCV) 1998 Zoster Vaccines (1 of 2) 1998 RSV High Risk: (Elderly (60+ ) or Population) (1 - 1-dose 75+ series) 2023 COVID-19 Vaccine (2023-2 5 season) 2023 Influenza Vaccine (#1) 2024 HIB Vaccines Aged Out No longer eligi ble based on patient's age to complete this topic HPV Vaccines Aged Out No longer eligi ble based on patient's age to complete this topic Hepatitis A Vaccines Aged Out No long er eligible based on patient's age to complete this topic Hepatitis B Vaccines Aged Out No long er eligible based on patient's age to complete this topic IPV Vaccines Aged Out No longer eligi ble based on patient's age to complete this topic Meningococcal Vaccine Aged Out No emma jazmine eligible based on patient's age to complete this topic Rotavirus Vaccines Aged Out No longer eligible based on patient's age to complete this topic Care Teams Pin Inserter Regulator Relationship Specialty Start Date End Date Erik Lopez DO [address] [place] [address] PCP - General 08/22/22
--- OUTSIDE RECORDS SUMMARY | 2024-11-05 15:25 | XMS_ITS | Clinical Summary ---
Demographics Address [address] [place] [address] Mobile Phone Home Phone Email Address Preferred Language Swedish Marital Status Congregational Affiliation Unknown Race White Ethnic Group Not or Lati no Author Organization [facility] Address [address], [address] [place] [address] Support Name Relationship Address Phone Isabela Agustin Personal Relationship [address] [place] [address] Care Team Providers Care Promotions Director Name Role Phone OvertonNila DO Primary Care Provider [phone] Allergies Active Allergy Reactions Criticality Noted Date Comments Penicillins Rash Low 01/31/2016 Medications diazepam (VALIUM) 2 MG tablet Take 2 mg by mouth every 6 hours as needed for Anxiety (as needed) Active albuterol sulfate HFA (PROAIR HFA) 108 (90 Base) MCG/ACT inhalerIndication s:Bronchiectasis without complication (HCC) Inhale 2 puffs into the lungs every 6 hours as needed for Wheezing 1 Inhaler 2 8 Active ciprofloxacin (CIPRO) 500 MG tabletIndications :Bronchiectasis without complication (HCC) TAKE 1 TABLET TWICE DAILY for TEN days 20 tablet 8 Active Active Problems Problem Noted Date Diagnosed Date Pulmonary hypertension 04/08/2017 HANSEN (dyspnea on exertion) Social History Tobacco Use Types Packs/Day Years Used Date Smoking Tobacco: Passive Smo ke Exposure - Never Smoker Smokeless Tobacco: Never Tobacco Cessation:Counseling Given: No Alcohol Use Standard Drinks/Week Comments Yes 0 (1 standard drink = 0.6 oz pur e alcohol) Sex and Gender Information Value Date Recorded Sex Assigned at Not on file Legal Sex Male 11:21 AM EDT Gender Identity Not on file Sexual Orientation Not on file Last Filed Vital Signs Vital Sign Reading Time Taken Comments Blood Pressure 100/70 11/17/2017 2:58 PM EDT Pulse 67 11/17/2017 2:58 PM EDT Temperature 36.3 C (97.3 F) 11/17/2017 2:58 PM EDT Respiratory Rate 16 11/17/2017 2:58 PM EDT Oxygen Saturation 96% 11/17/2017 2:58 PM EDT Inhaled Oxygen Concentration - - Weight 98.4 kg (217 lb) 11/17/2017 2:58 PM EDT Height 180.3 cm (5' 11 ) 11/17/2017 2:58 PM EDT Body Mass Index 30.27 11/17/2017 2:58 PM EDT Plan of Treatment Not on file Insurance * Guarantor: Mk Agustin Account Type Relation to Patient Date of Phone Billing Address Personal/Family Self 1950 [address] [place] [address] MEDICARE * Guarantor: Mk Agustin Account Type Relation to Patient Date of Phone Billing Address Personal/Family Self 1950 [address] [place] [address] MEDICARE Care Teams Promotions Director Relationship Specialty Start Date End Date Nila Overton DO PCP - General Family Medicine 12/29/15
--- OUTSIDE RECORDS SUMMARY | 2024-11-05 15:25 | XMS_ITS | Encounter Summary ---
Demographics Address [address] [place] [address] Home Phone Mobile Phone Preferred Language en Marital Status Amish Affiliation Unknown Race White Ethnic Group Not or Lati no Author Organization [facility] Address [address] [place] [address] Phone Care Team Providers Care Lamina Searcher Name Role Phone Erik Lopez DO Primary Care Provider + Encounter Details Date Type Department Care Team (Late st Contact Info) Description 09/11/2024 Lab Requisition [facility] [address] [place] [id number] Matt Thomas MD [address] [facility] [address] [place] [address] Social History Tobacco Use Types Packs/Day Years Used Date Smoking Tobacco: Never Assessed Sex and Gender Information Value Date Recorded Sex Assigned at Not on file Legal Sex Male 6:58 AM EST Gender Identity Not on file Sexual Orientation Not on file documented as of this encounter Plan of Treatment Not on file documented as of this encounter Visit Diagnoses Not on filedocumented in this encounter Care Teams Lamina Searcher Relationship Specialty Start Date End Date Erik Lopez DO [address] [place] [address] [place] [address] PCP - General 08/22/22 documented as of this encounter
--- OUTSIDE RECORDS SUMMARY | 2024-11-05 15:25 | XMS_ITS | Encounter Summary ---
Demographics Address [address] [place] [address] Home Phone Mobile Phone Phone Email Address Preferred Language ENG Marital Status Jewish Affiliation Unknown Race White Ethnic Group Not or Lati no Author Organization [facility] Address [facility] [place] [address] Support Name Relationship Address Phone Isabela Agustin Spouse [address] [place] [address] Care Team Providers Care Counseling Program Leader Name Role Phone Bipin Ornelas MD Primary Care Provider Nato Rosario MD Unavailable [phone] John BLANDON DO, Robert James Primary Care Provid er John BLANDON DO, Robert James Unavailable [phone] Source Comments In the event this information is protected by the Federal Confidentiality of Alcohol and Drug AbusePatient Records regulations: The Federal rules restrict any use of the information to criminally investigate or prosecute any alcohol or drug abuse patient.[facility] Encounter Details Date Type Department Care Team (Late st Contact Info) Description 03/01/2022 Patient Msg Urology [address] [place] [address] Erik Cassidy MD [address] [place] [address] PSA Social History Tobacco Use [...] PHQ-2 Answer Date Recorded PHQ-2 score 0 09/07/2021 Area Deprivation Index Answer Date Paolo rded National Score (1-100), lower number is lower ri sk 79 09/05/2021 State Score (1-10), lower number is lower risk N ot on file 09/05/2021 Data from: https://www.neighborhoodatlas.medicine.[facility]/. Last address used for calculation [address] [facility] 09/05/2021 Sex and Gender Information Value Date Recorded [...] Entry Date Author No 09/04/2018 4:07 PM EDT Isela Arteaga RN documented in this encounter Plan of Treatment Upcoming Encounters Date Type Department Care Team (Late st Contact Info) Description 12/29/2024 9:30 AM EDT Office Visit Orthopaedics [address] [place] [address] Mary Lemus PA-C [address] [place] [address] 4 month f/u 02/25/2025 2:00 PM EST Office Visit Urology [address] [place] [address] Ellie Arroyo APRN.VACUUM CONDITIONER OPERATOR [address] [place] [address] FOLLOW UP 03/07/2025 10:00 AM EST Office Visit [facility] [address] [place] [address] Lab 03/14/2025 10:00 AM EST Office Visit Radiation Oncology [address] [place] [address] Sigifredo Corona MD [address] [place] [address] Lab 04/07/2025 9:30 AM EST Office Visit Urology [address] [place] [address] Janell Hill MD [address] [place], [place] [id number] 6 month Cystoscopy documented as of this encounter Visit Diagnoses Not on filedocumented in this encounter Care Teams Counseling Program Leader Relationship Specialty Start Date End Date Bipin Ornelas MD [address] [place] [address] PCP - General Family Medicine 08/25/18 03/04/23 Erik oLpez II, [address] [place] [address] PCP - General Family Medicine 03/05/23 Nato Rosario MD [address] [place] [address] [place] [address] Physician Radiation Oncology 11/24/19 Erik Lopez II, DO [address] [place] [address] Referring Family Medicine 10/22/23 documented as of this encounter
--- OUTSIDE RECORDS SUMMARY | 2024-11-05 15:25 | XMS_ITS | Clinical Summary ---
Demographics Address [address] [place] [address] Mobile Phone Home Phone Email Address Preferred Language en Marital Status Christianity Affiliation Unknown Race White Ethnic Group Unknown Author Organization [facility] Address [address] [place] [address] Care Team Providers Care Polisher Brass Name Role Phone Unavailable Primary Care Provider Unavailabl e Allergies Active Allergy Reactions Criticality Noted Date Comments Penicillins Rash Low 01/31/2016 Vitamin B12 Low 08/14/2023 Other Reaction(s): Hives Medications atorvastatin (Lipitor) 40 MG tablet Take 40 mg by mouth Daily Active carvedilol (Coreg) 3.125 MG tablet Take 3.125 mg by mouth in the morning and 3.125 mg before bedtime. Active diazePAM (Valium) 2 MG tablet Take 2 mg by mouth every 8 (eight) hours if needed for anxiety 03/11/2023 Active DULoxetine (Cymbalta) [address] capsule Take 30 mg by mouth Daily 07/05/2023 Active ASPIRIN 81 PO Aspir-81 Active omega-3 (FISH OIL) 300 MG capsule Fish Oil Active DOTERRA TUMERIC 1 PO EVERY 12 HOURS Tumeric Active ascorbic acid (Vitamin C) 100 MG chewable tablet Vitamin C Active cholecalciferol (Vitamin D-3) 50 MCG (1999) capsule Vitamin D Active Multiple Vitamin (MULTIVITAMIN ADULT PO) Take by mouth 09/10/2022 Active Bee Pollen-Propolis -RoyalJelly tablet Take by mouth Active ciclopirox (Loprox) 0.77 % creamIndication s:Other seborrheic dermatitis Apply to face and ears daily/30 day supply 30 g 11 08/19/2024 Active Active Problems No known active problems Encounters Date Type Department Care Team Description 08/19/2024 11:20 AM EDT Office Visit [facility] [address] [place] [address] Chantel De Souza MD Other seborrheic dermatitis (Primary Dx); Seborrheic keratosis; Lentigines; Sebaceous hyperplasia of face; Rash and other nonspecific skin eruption 08/19/2024 Bamboo flowsheet [facility] [address] [place] [address] Chantel De Souza MD 08/19/2024 Travel from Last 3 Months Family History Medical History Relation Name Comments Melanoma Neg Hx Social History Tobacco Use Types Packs/Day Years Used Date Smoking Tobacco: Never Smokeless Tobacco: Never Tobacco Cessation:Counseling Given: Not Answered Sex and Gender Information Value Date Recorded Sex Assigned at Not on file Legal Sex Male 7:16 PM EDT Gender Identity Not on file Sexual Orientation Not on file Last Filed Vital Signs Vital Sign Reading Time Taken Comments Blood Pressure - - Pulse - - Temperature - - Respiratory Rate - - Oxygen Saturation - - Inhaled Oxygen Concentration - - Weight - - Height 27.9 cm (11 ) 06/10/2022 12:00 PM EDT Body Mass Index - - Plan of Treatment Upcoming Encounters Date Type Department Care Team (Late st Contact Info) Description 11/17/2024 9:40 AM EDT Office Visit [facility] [address] [place] [phone] Slade Arechiga, DPM FACFAS [address] [place] [address] 09/08/2025 11:20 AM EDT Office Visit [facility] [address] [place] [address] Chantel De Souza MD [address] [facility] [address] [place] [address] Health Maintenance Due Date Last Done Comments Influenza Vaccine (#1) 2024 4, 01/28/2023, 01/23/2022, Additional history exists Pneumococcal Vaccine: 65+ Years Completed 0, 02/15/2019 FIT-DNA Discontinued 10/30/2021, 03/03/2018 FOBT Discontinued 06/29/2024, 06/29/2024 Colonoscopy Discontinued 07/04/2024, 07/01/2024 Colorectal Cancer Screening Discontinued CT Colonography Discontinued FIT Discontinued Sigmoidoscopy Discontinued Insurance * Guarantor: Mk Agustin Account Type Relation to Patient Date of Phone Billing Address Personal/Family Self 1950 [address] [place] [address] MEDICARE Active Storage
--- OUTSIDE RECORDS SUMMARY | 2024-11-05 15:25 | XMS_ITS | Encounter Summary ---
Demographics Address [address] [place] [address] Home Phone Mobile Phone Phone Email Address Preferred Language ENG Marital Status Buddhism Affiliation Unknown Race White Ethnic Group Not or Lati no Author Organization [facility] Address [facility] [place] [address] Support Name Relationship Address Phone Isabela Agustin Spouse [address] [place] [address] Care Team Providers Care Maintenance Groundskeeper Name Role Phone Nato Rosario MD Unavailable [phone] John BLANDON DO, Robert James Primary Care Provid er John BLANDON DO, Robert James Unavailable [phone] Source Comments In the event this information is protected by the Federal Confidentiality of Alcohol and Drug AbusePatient Records regulations: The Federal rules restrict any use of the information to criminally investigate or prosecute any alcohol or drug abuse patient.[facility] Encounter Details Date Type Department Care Team (Late st Contact Info) Description 10/02/2024 Results Follow-Up Urology [address] [place] [address] Erik Cassidy MD [address] [place] [address] Social History Tobacco Use Types Packs/Day Years [...] is lower risk 6 09/05/2022 Data from: https://www.neighborhoodatlas.[facility]/. Last address used for calculation [address] [facility] 09/05/2022 Sex and Gender Information Value [...] Assessment Author No 09/04/2018 4:07 PM Isela Greir RN * Do you have serious difficulty [...] 9:30 AM EDT Office Visit Orthopaedics [address] [place] [address] Mary Lemus PA-C [address] [place] [address] 4 month f/u 02/25/2025 2:00 PM EST Office Visit Urology [address] [place] [address] Ellie Arroyo, KEMAL.NON DESTRUCTIVE TESTING ENGINEER [address] [place] [address] FOLLOW UP 03/07/2025 10:00 AM EST Office Visit [facility] [address] [place] [address] Lab 03/14/2025 10:00 AM EST Office Visit Radiation Oncology [address] [place] [address] Sigifredo Corona MD [address] [place] [address] Lab 04/07/2025 9:30 AM EST Office Visit Urology [address] [place] [address] Janell Hill MD [address] [place], [place] [address] 6 month Cystoscopy documented as of this encounter Goals Goal Patient Goal Type Associated Problems Recent Progress Patient-Stated? Author Blood Pressure < 130/80 Blood Pressure 132/72( 025 3:01 PM EDT) No Yuan Sloan MD documented as of this encounter Visit Diagnoses Not on filedocumented in this encounter Care Teams Maintenance Groundskeeper Relationship Specialty Start Date End Date Erik Lopez II, DO [address] [place] [address] [place] [address] PCP - General Family Medicine 03/05/23 Nato Rosario MD [address] [place] [address] [place] [address] Physician Radiation Oncology 11/24/19 Erik Lopez II, DO [address] [place] [address] Referring Family Medicine 10/22/23 documented as of this encounter
--- OUTSIDE RECORDS SUMMARY | 2024-11-05 15:25 | XMS_ITS | Encounter Summary ---
Demographics Address [address] [place] [address] Home Phone Mobile Phone Phone Email Address Preferred Language ENG Marital Status Roman Catholic Affiliation Unknown Race White Ethnic Group Not or Lati no Author Organization [facility] Address [address] [place] [address] Support Name Relationship Address Phone Isabela Agustin Spouse [address] [place] [address] Care Team Providers Care Windows Server Specialist Name Role Phone Nato Rosario MD Unavailable [phone] John BLANDON DO, Robert James Primary Care Provid er John BLANDON DO, Robert James Unavailable [phone] Source Comments In the event this information is protected by the Federal Confidentiality of Alcohol and Drug AbusePatient Records regulations: The Federal rules restrict any use of the information to criminally investigate or prosecute any alcohol or drug abuse patient.[facility] Encounter Details Date Type Department Care Team (Late st Contact Info) Description 09/06/2024 Patient Msg Cardiology [address] [address] Alana Dumont APRN.HOBBING MACHINE OPERATOR [address] [place] [address] Appointment Cancellation Request Social History [...] is lower risk 6 09/05/2022 Data from: https://www.neighborhoodatlas.medicine.[facility].edu/. Last address used for calculation [address] [facility] 09/05/2022 Sex and Gender Information Value [...] 9:30 AM EDT Office Visit Orthopaedics [address] [place] [address] Mary Lemus PA-C [address] [place] [address] 4 month f/u 02/25/2025 2:00 PM EST Office Visit Urology [address] [place] [address] Ellie Arroyo APRN.HOBBING MACHINE OPERATOR [address] [place] [address] FOLLOW UP 03/07/2025 10:00 AM EST Office Visit [facility] [address] [place] [address] [place] [address] Lab 03/14/2025 10:00 AM EST Office Visit Radiation Oncology [address] [place] [address] [place] [address] Sigifredo Corona MD [address] [place] [address] Lab 04/07/2025 9:30 AM EST Office Visit Urology [address] [place] [address] Janell Hill MD [address] [place], [place] [address] 6 month Cystoscopy documented as of this encounter Goals Goal Patient Goal Type Associated Problems Recent Progress Patient-Stated? Author Blood Pressure < 130/80 Blood Pressure 132/72( 025 3:01 PM EDT) Yuan Verdugo MD documented as of this encounter Visit Diagnoses Not on filedocumented in this encounter Care Teams Windows Server Specialist Relationship Specialty Start Date End Date Erik Lopez II, [address] [place] [address] [place] [address] PCP - General Family Medicine 03/05/23 Nato Rosario MD [address] [place] [address] [place] [address] Physician Radiation Oncology 11/24/19 Erik Lopez II, DO [address] [place] [address] Referring Family Medicine 10/22/23 documented as of this encounter
--- OUTSIDE RECORDS SUMMARY | 2024-11-05 15:25 | XMS_ITS | Encounter Summary ---
Demographics Address [address] [place] [address] Home Phone Mobile Phone Phone Email Address Preferred Language ENG Marital Status Yazidism Affiliation Unknown Race White Ethnic Group Not or Lati no Author Organization [facility] Address [facility] [place] [address] Support Name Relationship Address Phone Isabela Agustin Spouse [address] [place] [address] Care Team Providers Care Fur Tailor Name Role Phone Bipin Ornelas MD Primary Care Provider Nato Rosario MD Unavailable [phone] John BLANDON DO, Robert James Primary Care Provid er John BLANDON DO, Robert James Unavailable [phone] Source Comments In the event this information is protected by the Federal Confidentiality of Alcohol and Drug AbusePatient Records regulations: The Federal rules restrict any use of the information to criminally investigate or prosecute any alcohol or drug abuse patient.[facility] Encounter Details Date Type Department Care Team (Late st Contact Info) Description 08/30/2022 Patient Msg Urology [address] [place] [address] Erik Cassidy MD [address] [place] [address] PSA Social History Tobacco Use [...] PHQ-2 Answer Date Recorded PHQ-2 score 0 03/07/2022 Area Deprivation Index Answer Date Paolo rded National Score (1-100), lower number is lower ri sk 79 2022 State Score (1-10), lower number is lower risk N ot on file 2022 Data from: https://www.neighborhoodatlas.medicine.[facility]/. Last address used for calculation [address] [facility] 2022 Sex and Gender Information Value Date Recorded [...] 9:30 AM EDT Office Visit Orthopaedics [address] [place] [address] Mary Lemus PA-C [address] [place] [address] 4 month f/u 02/25/2025 2:00 PM EST Office Visit Urology [address] [place] [address] Ellie Arroyo APRN.SENIOR ENGINEERING TECHNICIAN [address] [place] [address] FOLLOW UP 03/07/2025 10:00 AM EST Office Visit [facility] [address] [place] [address] Lab 03/14/2025 10:00 AM EST Office Visit Radiation Oncology [address] [place] [address] Sigifredo Corona MD [address] [place] [address] Lab 04/07/2025 9:30 AM EST Office Visit Urology [address] [place] [address] Janell Hill MD [address] [place], [place] [address] 6 month Cystoscopy documented as of this encounter Visit Diagnoses Not on filedocumented in this encounter Care Teams Fur Tailor Relationship Specialty Start Date End Date Bipin Ornelas MD [address] [place] [address] PCP - General Family Medicine 08/25/18 03/04/23 Erik Lopez II, [address] [place] [address] PCP - General Family Medicine 03/05/23 Nato Rosario MD [address] [place] [address] [place] [address] Physician Radiation Oncology 11/24/19 Erik Lopez II, DO [address] [place] [address] Referring Family Medicine 10/22/23 documented as of this encounter
--- OUTSIDE RECORDS SUMMARY | 2024-11-05 15:25 | XMS_ITS | Encounter Summary ---
Demographics Address [address] [place] [address] Home Phone Mobile Phone Phone Email Address Preferred Language ENG Marital Status Nondenominational Affiliation Unknown Race White Ethnic Group Not or Lati no Author Organization [facility] Address [facility] [place] [address] Support Name Relationship Address Phone Isabela Agustin Spouse [address] [place] [address] Care Team Providers Care Upscale Security Officer Name Role Phone Bipin Ornelas MD Primary Care Provider Nato Rosario MD Unavailable John BLANDON DO, Robert James Primary Care Provid er John BLANDON DO, Robert James Unavailable [phone] Source Comments In the event this information is protected by the Federal Confidentiality of Alcohol and Drug AbusePatient Records regulations: The Federal rules restrict any use of the information to criminally investigate or prosecute any alcohol or drug abuse patient.[facility] Encounter Details Date Type Department Care Team (Late st Contact Info) Description 10/20/2018 Patient Msg Urology [address] [place] [address] Erik Cassidy MD [address] [place] [address] PSA Social History Tobacco Use [...] of Assessment Author No 09/04/2018 4:07 PM EDT Isela Arteaga RN * Are you blind or do you have serious difficulty seeing, even when wearing glasses? Answer Date of Assessment Author No 09/04/2018 4:07 PM EDT Isela Arteaga RN * Do you have serious difficulty walking or climbing stairs? Answer Date of Assessment Author No 09/04/2018 4:07 PM EDT Isela Arteaga RN * Do you have difficulty dressing or bathing? Answer Date of Assessment Author No 09/04/2018 4:07 PM EDT Isela Arteaga RN * Because of a physical, mental, or emotional condition, do you have difficulty doing errands alone such as visiting a doctor's office or shopping? Answer Date of Assessment Author No 09/04/2018 4:07 PM BENIT Isela Arteaga RN documented as of this encounter Mental [...] 9:30 AM EDT Office Visit Orthopaedics [address] [place] [address] Mary Lemus PA-C [address] [place] [address] 4 month f/u 02/25/2025 2:00 PM EST Office Visit Urology [address] [place] [address] Ellie Arroyo APRN.MARKET RESEARCH INTERN [address] [place] [address] FOLLOW UP 03/07/2025 10:00 AM EST Office Visit [facility] Laboratory [address] [place] [address] Lab 03/14/2025 10:00 AM EST Office Visit Radiation Oncology [address] [place] [address] Sigifredo Corona MD [address] [place] [address] Lab 04/07/2025 9:30 AM EST Office Visit Urology [address] [place] [address] Janell Hill MD [address] [facility] [place] [address] 6 month Cystoscopy documented as of this encounter Visit Diagnoses Not on filedocumented in this encounter Care Teams Upscale Security Officer Relationship Specialty Start Date End Date Bipin Ornelas MD [address] [place] [address] PCP - General Family Medicine 08/25/18 03/04/23 Erik Lopez II, DO [address] [place] [address] PCP - General Family Medicine 03/05/23 Nato Rosario MD [address] [place] [address] Physician Radiation Oncology 11/24/19 Erik Lopez II, DO [address] [place] [address] Referring Family Medicine 10/22/23 documented as of this encounter
--- OUTSIDE RECORDS SUMMARY | 2024-11-05 15:25 | XMS_ITS | Encounter Summary ---
Demographics Address [address] [place] [address] Home Phone Mobile Phone Phone Email Address m Preferred Language ENG Marital Status Jewish Affiliation Unknown Race White Ethnic Group Not or Lati no Author Organization [facility] Address [address] [place], [place] [id number] Support Name Relationship Address Phone Isabela Agustin Spouse 7 04[address] [place] [address] Care Team Providers Care Bleaching Machine Operator Name Role Phone Bipin Ornelas MD Primary Care Provider Nato Rosario MD Unavailable [phone] John BLANDON DO, Robert James Primary Care Provid er John BLANDON DO, Robert James Unavailable [phone] Source Comments In the event this information is protected by the Federal Confidentiality of Alcohol and Drug AbusePatient Records regulations: The Federal rules restrict any use of the information to criminally investigate or prosecute any alcohol or drug abuse patient.[facility] Encounter Details Date Type Department Care Team (Late st Contact Info) Description 09/09/2022 Patient Msg Cardiology [address] [place] [address] [place] [address] [place] [address] Appointment Cancellation Request Social History Tobacco Use [...] is lower risk 6 09/05/2022 Data from: https://www.neighborhoodatlas.medicine.[facility].edu/. Last address used for calculation [address] [facility] 09/05/2022 Sex and Gender Information Value Date [...] 9:30 AM EDT Office Visit Orthopaedics [address] [place] [address] Mary Lemus PA-C [address] [place] [address] 4 month f/u 02/25/2025 2:00 PM EST Office Visit Urology [address] [place] [address] Ellie Arroyo APRN.SUBMARINE DIVER [address] [place] [address] FOLLOW UP 03/07/2025 10:00 AM EST Office Visit [facility] Laboratory [address] [place] [address] [place] [address] Lab 03/14/2025 10:00 AM EST Office Visit Radiation Oncology [address] [place] [address] Sigifredo Corona MD [address] [place] [address] Lab 04/07/2025 9:30 AM EST Office Visit Urology [address] [place] [address] Janell Hill MD [address] [place] [address] 6 month Cystoscopy documented as of this encounter Visit Diagnoses Not on filedocumented in this encounter Care Teams Bleaching Machine Operator Relationship Specialty Start Date End Date Bipin Ornelas MD [address] [place] [address] PCP - General Family Medicine 08/25/18 03/04/23 Erik Lopez II, DO [address] [place] [address] PCP - General Family Medicine 03/05/23 Nato Rosario MD [address] [place] [address] [place] [address] Physician Radiation Oncology 11/24/19 Erik Lopez II, DO [address] [place] [address] Referring Family Medicine 10/22/23 documented as of this encounter
--- OUTSIDE RECORDS SUMMARY | 2024-11-05 15:25 | XMS_ITS | Encounter Summary ---
Demographics Address [address] [place] [address] Home Phone Mobile Phone Phone Email Address Preferred Language ENG Marital Status Evangelical Affiliation Unknown Race White Ethnic Group Not or Lati no Author Organization [facility] Address [facility] [place] [address] Support Name Relationship Address Phone Isabela Agustin Spouse [address] [place] [address] Care Team Providers Care Digital Circuit Designer Name Role Phone Bipin Ornelas MD Primary Care Provider Nato Rosario MD Unavailable [phone] John BLANDON DO, Robert James Primary Care Provid er John BLANDON DO, Robert James Unavailable [phone] Source Comments In the event this information is protected by the Federal Confidentiality of Alcohol and Drug AbusePatient Records regulations: The Federal rules restrict any use of the information to criminally investigate or prosecute any alcohol or drug abuse patient.[facility] Encounter Details Date Type Department Care Team (Late st Contact Info) Description 03/01/2022 Patient Msg Urology [address] [place] [address] Erik Cassidy MD [address] [place] [address] PSA Social History Tobacco Use [...] N ot on file 09/05/2021 Data from: https://www.neighborhoodatlas.medicine.[facility]/. Last address used for calculation [address] [facility] 09/05/2021 Sex and Gender Information Value Date [...] 9:30 AM EDT Office Visit Orthopaedics [address] [place] [address] Mary Lemus PA-C [address] [place] [address] 4 month f/u 02/25/2025 2:00 PM EST Office Visit Urology [address] [place] [address] Ellie Arroyo APRN.EQUIPMENT VALIDATION SPECIALIST [address] [place] [address] FOLLOW UP 03/07/2025 10:00 AM EST Office Visit [facility] Laboratory [address] [place] [place] [address] Lab 03/14/2025 10:00 AM EST Office Visit Radiation Oncology [address] [place] [place] [address] Sigifredo Corona MD [address] [place] [address] Lab 04/07/2025 9:30 AM EST Office Visit Urology [address] [place] [address] Janell Hill MD [address] [place], [place] [address] 6 month Cystoscopy documented as of this encounter Visit Diagnoses Not on filedocumented in this encounter Care Teams Digital Circuit Designer Relationship Specialty Start Date End Date Bipin Ornelas MD [address] [place] [address] PCP - General Family Medicine 08/25/18 03/04/23 Erik Lopez II, [address] [place] [address] PCP - General Family Medicine 03/05/23 Nato Rosario MD [address] [place] [address] [place] [address] Physician Radiation Oncology 11/24/19 Erik Lopez II, DO [address] [place] [address] Referring Family Medicine 10/22/23 documented as of this encounter
--- OUTSIDE RECORDS SUMMARY | 2024-11-05 15:25 | XMS_ITS | Encounter Summary ---
Demographics Address [address] [place] [address] Home Phone Mobile Phone Phone Email Address Preferred Language ENG Marital Status Holiness Affiliation Unknown Race White Ethnic Group Not or Lati no Author Organization [facility] Address [facility] [place] [address] Support Name Relationship Address Phone Isabela Agustin Spouse [address] [place] [address] Care Team Providers Care Out Of School Hours Care Worker Name Role Phone Nato Rosario MD Unavailable [phone] John BLANDON DO, Robert James Primary Care Provid er John BLANDON DO, Robert James Unavailable [phone] Source Comments In the event this information is protected by the Federal Confidentiality of Alcohol and Drug AbusePatient Records regulations: The Federal rules restrict any use of the information to criminally investigate or prosecute any alcohol or drug abuse patient.[facility] Reason for Visit * Reason Comments Appointment Encounter Details Date Type Department Care Team (Late st Contact Info) Description 10/29/2024 Telephone Urology [address] [place] [address] Erik Cassidy MD [address] [place] [address] Appointment Social History Tobacco Use Types Packs/Day [...] is lower risk 6 09/05/2022 Data from: https://www.neighborhoodatlas.[facility]/. Last address used for calculation [address]01 [facility] 09/05/2022 Sex and Gender Information Value [...] Date Author No 09/04/2018 4:07 PM EDT Chandler, Isela, RN documented in this encounter Miscellaneous Notes * Telephone Encounter - Jose Alejandro Worthington - 10/29/2024 4:23 PM EDT Called patient and left VM informing him of appointment with Dr. Hill on 04/07/25. Also sent [email or web address] message. documented in this encounter Plan of Treatment Upcoming Encounters Date Type Department Care Team (Late st Contact Info) Description 12/29/2024 9:30 AM EDT Office Visit Orthopaedics [address] [place] [address] Mary Lemus PA-C [address] [place] [address] 4 month f/u 02/25/2025 2:00 PM EST Office Visit Urology [address] [place] [address] Ellie Arroyo APRN.FORMULATOR [address] [place] [address] FOLLOW UP 03/07/2025 10:00 AM EST Office Visit [facility] Laboratory [address] [place] [address] [place] [address] Lab 03/14/2025 10:00 AM EST Office Visit Radiation Oncology [address] [place] [address] [place] [address] Sigifredo Corona MD [address] [place] [address] Lab 04/07/2025 9:30 AM EST Office Visit Urology [address] [place] [address] Janell Hill MD [address] [place], [place] [address] 6 month Cystoscopy documented as of this encounter Goals Goal Patient Goal Type Associated Problems Recent Progress Patient-Stated? Author Blood Pressure < 130/80 Blood Pressure 132/72( 025 3:01 PM EDT) No Yuan Sloan MD documented as of this encounter Visit Diagnoses Not on filedocumented in this encounter Care Teams Out Of School Hours Care Worker Relationship Specialty Start Date End Date Erik Lopez II, DO [address] [facility] [address] PCP - General Family Medicine 03/05/23 Nato Rosario MD [address] [place] [address] [place] [address] Physician Radiation Oncology 11/24/19 Erik Lopez II, DO [address] [place] [address] Referring Family Medicine 10/22/23 documented as of this encounter
--- OUTSIDE RECORDS SUMMARY | 2024-11-05 15:25 | XMS_ITS | Encounter Summary ---
Demographics Address [address] [place] [address] Home Phone Mobile Phone Phone Email Address Preferred Language ENG Marital Status Church Affiliation Unknown Race White Ethnic Group Not or Lati no Author Organization [facility] Address [address] [place] [address] Support Name Relationship Address Phone Isabela Agustin Spouse [address] [place] [address] Care Team Providers Care Gas Fitter Helper Name Role Phone Bipin rOnelas MD Primary Care Provider Nato Rosario MD Unavailable [phone] John BLANDON DO, Robert James Primary Care Provid er John BLANDON DO, Robert James Unavailable [phone] Source Comments In the event this information is protected by the Federal Confidentiality of Alcohol and Drug AbusePatient Records regulations: The Federal rules restrict any use of the information to criminally investigate or prosecute any alcohol or drug abuse patient.[facility] Encounter Details Date Type Department Care Team (Late st Contact Info) Description 08/02/2020 Patient Msg Urology [address] [place] [address] Ellie Arroyo APRN.WOOD CLUB NECK WHIPPER [address] [place], [place] [id number] Injection questions Social History Tobacco Use Types Packs/Day Years [...] on file 10/30 PHQ-2 Answer Date Recorded PHQ2 Score 0 09/03/2018 Area Deprivation Index Answer Date Paolo rded National Score (1-100), lower number is lower ri sk Not on file 03/05/2020 State Score (1-10), lower number is lower risk N ot on file 03/05/2020 Data from: https://www.neighborhoodatlas.medicine.[facility].edu/. Last address used for calculation Not on file 03/05/2020 Sex and Gender Information Value Date Recorded [...] have Coronavirus / COVID-19? No / Unsure 07/26/2020 10:32 AM EDT documented as of this encounter [...] 4:07 PM EDT Isela Arteaga RN documented as of this [...] 9:30 AM EDT Office Visit Orthopaedics [address] [place] [address] aMry Lemus PA-C [address] [place] [address] 4 month f/u 02/25/2025 2:00 PM EST Office Visit Urology [address] [place] [address] Ellie Arroyo APRN.WOOD CLUB NECK WHIPPER [address] [place], [place] [address] FOLLOW UP 03/07/2025 10:00 AM EST Office Visit [facility] Laboratory [address] [place] [address] [place] [address] Lab 03/14/2025 10:00 AM EST Office Visit Radiation Oncology [address] [place] [address] Sigifredo Corona MD [address] [place] [address] Lab 04/07/2025 9:30 AM EST Office Visit Urology [address] [place] [address] Janell Hill MD [address] [place] [address] 6 month Cystoscopy documented as of this encounter Visit Diagnoses Not on filedocumented in this encounter Care Teams Gas Fitter Helper Relationship Specialty Start Date End Date Bipin Ornelas MD [address] [place] [address] PCP - General Family Medicine 08/25/18 03/04/23 Erik Lopez II, DO [address] [place] [address] PCP - General Family Medicine 03/05/23 Nato Rosario MD [address] [place] [address] [place] [address] Physician Radiation Oncology 11/24/19 Erik Lopez II, DO [address] [place] [address] Referring Family Medicine 10/22/23 documented as of this encounter
--- OUTSIDE RECORDS SUMMARY | 2024-11-05 15:26 | XMS_ITS | Encounter Summary ---
Demographics Address [address] [place] [address] Home Phone Mobile Phone Phone Email Address Preferred Language ENG Marital Status Gnosticism Affiliation Unknown Race White Ethnic Group Not or Lati no Author Organization [facility] Address [address] [place] [address] Support Name Relationship Address Phone Isabela Agustin Spouse 7 [address] [place] [address] Care Team Providers Care Mine Geologist Name Role Phone Bipin Ornelas MD Primary Care Provider Nato Rosario MD Unavailable [phone] John BLANDON DO, Robert James Primary Care Provid er John BLANDON DO, Robert James Unavailable [phone] Source Comments In the event this information is protected by the Federal Confidentiality of Alcohol and Drug AbusePatient Records regulations: The Federal rules restrict any use of the information to criminally investigate or prosecute any alcohol or drug abuse patient.[facility] Encounter Details Date Type Department Care Team (Late st Contact Info) Description 09/21/2019 Get Medical Advice Urology [address] [place] [address] Janell Meyer, DOUBLING MACHINE OPERATOR.[facility] [address] [place] [address] RE: Medication Question (Not Renewal) Social History Tobacco Use Types Packs/Day Years [...] have Coronavirus / COVID-19? No / Unsure 08/25/2019 10:51 AM EDT documented as of this encounter [...] Isela Grier RN documented in this encounter Miscellaneous Notes * Telephone Encounter - Tracie Gusman) - 09/21/2019 12:26 PM EDT Sheryl, Please advise message below from pt documented in this encounter Plan of Treatment Upcoming Encounters Date Type Department Care Team (Late st Contact Info) Description 12/29/2024 9:30 AM EDT Office Visit Orthopaedics [address] [place] [address] Mary Lemus PA-C [address] [place] [address] 4 month f/u 02/25/2025 2:00 PM EST Office Visit Urology [address] [place] [address] Ellie Arroyo APRN.TESTING SHAKING SHIPPING [address] [place], [place] [id number] FOLLOW UP 03/07/2025 10:00 AM EST Office Visit [facility] [address] [place] [address] [place] [address] Lab 03/14/2025 10:00 AM EST Office Visit Radiation Oncology [address] [place] [address] [place] [address] Sigifredo Corona MD [address] [facility] [place] [address] Lab 04/07/2025 9:30 AM EST Office Visit Urology [address] [facility] [place] [address] Janell Hill MD [address] [place], [place] [address] 6 month Cystoscopy documented as of this encounter Visit Diagnoses Not on filedocumented in this encounter Care Teams Mine Geologist Relationship Specialty Start Date End Date Bipin Ornelas MD [address] [place] [address] PCP - General Family Medicine 08/25/18 03/04/23 Erik Lopez II, [address] [place] [address] PCP - General Family Medicine 03/05/23 Nato Rosario MD [address] [place] [address] [place] [address] Physician Radiation Oncology 11/24/19 Erik Lopez II, DO [address] [place] [address] Referring Family Medicine 10/22/23 documented as of this encounter
--- OUTSIDE RECORDS SUMMARY | 2024-11-05 15:26 | XMS_ITS | Encounter Summary ---
Demographics Address [address] [place] [address] Home Phone Mobile Phone Phone Email Address Preferred Language ENG Marital Status Moravian Affiliation Unknown Race White Ethnic Group Not or Lati no Author Organization [facility] Address [facility] [place] [address] Support Name Relationship Address Phone Isabela Agustin Spouse 7 04[address] [place] [address] Care Team Providers Care Monument Erector Name Role Phone Nato Rosario MD Unavailable [phone] John BLANDON DO, Robert James Primary Care Provid er John BLANDON DO, Robert James Unavailable [phone] Source Comments In the event this information is protected by the Federal Confidentiality of Alcohol and Drug AbusePatient Records regulations: The Federal rules restrict any use of the information to criminally investigate or prosecute any alcohol or drug abuse patient.[facility] Encounter Details Date Type Department Care Team (Late st Contact Info) Description 03/09/2024 Patient Msg Urology [address] [place], [place] [phone] Erik Cassidy MD [address] [place] [address] PSA Social History Tobacco Use [...] 10/30 PHQ-2 Answer Date Recorded PHQ-2 score 1 02/10/2024 Area Deprivation Index Answer Date Paolo rded National Score (1-100), lower number is lower ri sk 77 09/05/2022 State Score (1-10), lower number is lower risk 6 09/05/2022 Data from: https://www.neighborhoodatlas.[facility]/. Last address used for calculation [address]01 [facility] 09/05/2022 Sex and Gender Information Value [...] Chandler, Isela, RN documented in this encounter Plan of Treatment Upcoming Encounters Date Type Department Care Team (Late st Contact Info) Description 12/29/2024 9:30 AM EDT Office Visit Orthopaedics [address] [place] [address] Mary Lemus PA-C [address] [place] [address] 4 month f/u 02/25/2025 2:00 PM EST Office Visit Urology [address] [place] [address] Ellie Arroyo APRN.BEAD FILLER [address] [place] [address] FOLLOW UP 03/07/2025 10:00 AM EST Office Visit [facility] Laboratory [address] [facility] [place] [address] Lab 03/14/2025 10:00 AM EST Office Visit Radiation Oncology [address] [facility] [place] [address] Sigifredo Corona MD [address] [facility] [place] [address] Lab 04/07/2025 9:30 AM EST Office Visit Urology [address] [place] [address] Janell Hill MD [address] [place] [address] 6 month Cystoscopy documented as of this encounter Goals Goal Patient Goal Type Associated Problems Recent Progress Patient-Stated? Author Blood Pressure < 130/80 Blood Pressure 132/72( 025 3:01 PM EDT) No Yuan Sloan MD documented as of this encounter Visit Diagnoses Not on filedocumented in this encounter Care Teams Monument Erector Relationship Specialty Start Date End Date Erik Lopez II, DO [address] [place] [address] [address] PCP - General Family Medicine 03/05/23 Nato Rosario MD [address] [place] [address] [place] [address] Physician Radiation Oncology 11/24/19 Erik Lopez II, DO [address] [place] [address] Referring Family Medicine 10/22/23 documented as of this encounter
--- OUTSIDE RECORDS SUMMARY | 2024-11-05 15:26 | XMS_ITS | Clinical Summary ---
Demographics Address [address] [place] [address] Home Phone Mobile Phone Phone Email Address Preferred Language ENG Marital Status Buddhism Affiliation Unknown Race White Ethnic Group Not or Lati no Author Organization [facility] Address [address] [place], [place] [id number] Support Name Relationship Address Phone Isabela Agustin Spouse [address] [place] [address] Care Team Providers Care Hired Hand Name Role Phone Nato Rosario MD Unavailable [phone] John BLANDON DO, Robert James Primary Care Provid er John BLANDON DO, Robert James Unavailable [phone] Allergies Active Allergy Reactions Criticality Noted Date Comments Adhesive Tape-Silicones Other: See Comments 05/2024 Patient wore heart monitor and gave patient a wound Penicillins Rash Low 01/31/2016 Vitamin B Rash 07/08/2018 Medications albuterol HFA (PROVENTIL HFA, VENTOLIN HFA) 90 mcg/actuation inhaler Inhale 2 Puffs as instructed. 04/08/2017 Active FISH OIL-DHA-EPA ORAL Take 1,400 mg by mouth once daily. Active Multivitamin capsule Take 1 capsule by mouth once daily. Active ascorbic acid, vitamin C, (VITAMIN C) 500 mg tablet Take 500 mg by mouth once daily. Active calcium carbonate/vitam in D3 (CALCIUM 500 + D, D3, ORAL) Take by mouth. Active TURMERIC ORAL Take by mouth. Active diazePAM (VALIUM) 2 mg tablet Take 2 mg by mouth twice daily as needed. 09/04/2020 Active aspirin (ASPIR-81 ORAL) Take 1 tablet by mouth once daily. Active carvedilol (COREG) 3.125 mg tablet Take 3.125 mg by mouth twice daily. 02/11/2022 Active atorvastatin (LIPITOR) 40 mg tablet Take 40 mg by mouth once daily. 02/11/2022 Active meloxicam (MOBIC) 15 mg tablet Take by mouth. 03/15/2022 Active DULoxetine (CYMBALTA) 30 mg capsule Take 30 mg by mouth once daily. Active amiodarone (PACERONE) 200 mg tablet Take 200 mg by mouth once daily. 07/16/2024 Active empagliflozin (JARDIANCE) 10 mg tablet Take 10 mg by mouth. 07/20/2024 Active DOCOSAHEXAENOIC ACID ORAL Take 1 capsule by mouth once daily. Active Active Problems Problem Noted Date Diagnosed Date NICM (nonischemic cardiomyopathy) 09/10/2023 Assessment & Plan (09/10/2023 10:56 AM EDT): Assessment: Follows cardiology, Dr. Sloan, last OV 08/21/2023. Compliant on medications. Appears euvolemic, denies new or worsening cardiac symptoms. 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 Sloan Holter monitor in February 2022 shows frequent PVCs and PACs but also brief episodes of nonsustained supraventricular tachycardia. PVC burden was approximately 8%. Denies chest pain or palpations. Complains of intermittent lightheaded. No syncope Managed on carvedilol Recent Holter monitor 07/202208/21/2023-08/29/2023 IRHYTHM FINDINGS: Patient had a min HR of 38 bpm, max HR of 255 bpm, and avg HR of 62 bpm. Predominant underlying rhythm was Sinus Rhythm. 22 Ventricular Tachycardia runs occurred, the run with the fastest interval lasting 16 beats with a max rate of 255 bpm, the longest lasting 13.4 secs with an avg rate of 158 bpm. 10 Supraventricular Tachycardia runs occurred, the run with the fastest interval lasting 6 beats with a max rate of 148 bpm, the longest lasting 13 beats with an avg rate of 114 bpm. Isolated SVEs were rare (<1.0%), SVE Couplets were rare (<1.0%), and SVE Triplets were rare (<1.0%). Isolated VEs were frequent (7.9%, 90427), VE Couplets were rare (<1.0%, 3272), and VE Triplets were rare (<1.0%, 129). Ventricular Bigeminy and Trigeminy were present. Assessment & Plan (08/25/2018 3:50 PM EDT): Assessment: Several noted on exam. PVC's found on EKG. Patient states he has history of skipped beats found before on exam. Patient is asymptomatic. Anxiety 08/25/2018 Assessment & Plan (08/25/2018 3:59 PM EDT): Assessment: Valium PRN Prostate cancer 07/08/2018 Assessment & Plan (09/10/2023 10:54 AM EDT): Assessment: s/p prostatectomy and radiation Assessment & Plan (08/25/2018 3:59 PM EDT): Assessment: Positive biopsy 05/2018, having prostatectomy Bronchiectasis Assessment & Plan (08/25/2018 4:04 PM EDT): Assessment: Follows with outside pulmonary, last seen 10/2017, note in Care Everywhere. Had no significant oxygen desaturations on overnight pulse ox. PFT's 09/2017 with minimal reversibility suggesting reactive airway disease, CXR 08/2017 with no acute process. Patient is able to walk daily for 20 minutes with out difficulty. Does have some chronic HANSEN that is stable. Uses albuterol inhaler only a couple times a month HLD (hyperlipidemia) Assessment & Plan (08/25/2018 3:59 PM EDT): Assessment: Lipitor Patient is Islam Overview (08/25/2018): Refuses blood products Assessment & Plan (08/25/2018 4:04 PM EDT): Assessment: States he refuses blood products Encounters Date Type Department Care Team Description 10/29/2024 Telephone Urology [address] [facility] [place] [address] Erik Cassidy MD Appointment 10/02/2024 Results Follow-Up Urology [address] [facility] [place] [address] Erik Cassidy MD 09/29/2024 3:00 PM EDT Office Visit Urology [address] [facility] [place] [address] Erik Cassidy MD Screening for genitourinary condition (Primary Dx); History of prostate cancer; 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 HB[facility] [place] [address] Jordyn Multani RPh At your next appointment, choose [facility]. 09/07/2024 Patient [facility] [address] [place] [address] Alana Dumont, CREPE BOX TENDER.ORTHOPEDIC RN Appointment Cancellation Request 09/06/2024 Patient [facility] [address] [place] [address] Alana Dumont, CREPE BOX TENDER.ORTHOPEDIC RN Appointment Cancellation Request 08/05/2024 10:30 AM EDT Office Visit Orthopaedics [address] [place] [address] Mary Lemus PA-C Arthritis of xhvikred-nzvaxfunm-sdcl ezoid joint of right hand (Primary Dx); Arthritis of carpometacarpal (CMC) joint of right thumb; Arthritis of carpometacarpal (CMC) joint of left thumb from Last 3 Months Immunizations Immunization Administration Dates Next Due influenza (HD-IIV3) vaccine, age 65+ yr, high dose, trivalent, PF (FLUZONE HIGH-DOSE) 01/23/2022,01/09/2021,02/09/2019 influenza (HD-IIV4) vaccine, age 65+ yr, high dose, quadrivalent, PF (FLUZONE HIGH-DOSE) 01/28/2020 influenza (IIV4) vaccine, ag e 6 mo - 64 yr, quadrivalent, PF (AFLURIA, FLUARIX, FLULAVAL, FLUZONE) 01/14/2018,01/08/2017,12/29/2015 influenza (LAIV) vaccine, na dixie, unspecified formulation 01/09/2021 pneumococcal conjugate (PCV1 3) vaccine, 13 valent (PREVNAR 13) 02/15/2019 pneumococcal polysaccharide (PPV23) vaccine, 23 valent (PNEUMOVAX 23) 03/21/2020 tetanus diphtheria pertussis (Tdap) vaccine, age 7+ yr (ADACEL, BOOSTRIX) 05/14/2010 Family History Medical History Relation Comments No Known Problems Father No Known Problems Mother Difficulty with anesthesia No Family History Relation Status Comments Father Mother Alive Social History Tobacco Use Types Packs/Day Years [...] is lower risk 6 09/05/2022 Data from: https://www.neighborhoodatlas.medicine.[facility].edu/. Last address used for calculation [birth year][address] [employer] 09/05/2022 Sex and Gender Information Value Date Recorded Sex Assigned at Male 11/17/2019 1:04 AM EDT Legal Sex Male 9:48 AM EST Gender Identity Male 11/17/2019 1:04 AM EDT Sexual Orientation Bisexual 11/17/2019 1: 04 AM EDT Last Filed Vital Signs Vital Sign Reading Time Taken Comments Blood Pressure 132/72 09/29/2024 3:01 PM EDT Pulse 63 09/29/2024 3:01 PM EDT Temperature 35.8 C (96.4 F) 03/15/2024 10:15 AM EST Respiratory Rate 18 03/15/2024 10:15 AM EST Oxygen Saturation 92% 03/15/2024 10:15 AM EST Inhaled Oxygen Concentration - - Weight 100 kg (220 lb 7.4 oz) 03/15/2024 10:15 A M EST Height 180.3 cm (5' 11 ) 01/06/2024 1:18 PM EDT Body Mass Index 30.75 01/06/2024 1:18 PM EDT Plan of Treatment Upcoming Encounters Date Type Department Care Team (Late st Contact Info) Description 12/29/2024 9:30 AM EDT Office Visit Orthopaedics [address] [place] [address] Mary Lemus PA-C [address] [place] [address] 4 month f/u 02/25/2025 2:00 PM EST Office Visit Urology [address] [place] [address] [place] [address] [place] [address] FOLLOW UP 03/07/2025 10:00 AM EST Office Visit [facility] [address] [place] [address] Lab 03/14/2025 10:00 AM EST Office Visit Radiation Oncology [address] [place] [address] Sigifredo Corona MD [address] [place] [address] Lab 04/07/2025 9:30 AM EST Office Visit Urology [address] [place] [address] Janell Hill MD [address] [place] [address] 6 month Cystoscopy Health Maintenance Due Date Last Done Comments Depression Screening 1968 Hepatitis C Screening 1966 Shingrix Vaccine (1 of 2) 1998 Medicare Annual Wellness Visit 03/31/2013 RSV Vaccine (1 - 1-dose 75+ series) 2023 Advance Directive Discussion 03/31/2024 Influenza Vaccine (#1) 2024 , 01/28/2023, 01/23/2022, Additional history exists Diabetes Screening 09/04/2027 09/03/2024, 0 09/03/2024, 01/16/2024, Additional history exists DTaP,Tdap,Td Vaccine (3 - Td or Tdap) 03/11/2033 03/11/2023, 05/14/2010 Pneumococcal Vaccine: 50+ Completed 03/21/2020, Cologuard (FIT-DNA) Discontinued 10/30/2021, 8 Colorectal Cancer Screening Discontinued Fecal Occult Blood Discontinued 06/29/2024 CT Colonography Discontinued Colonoscopy Discontinued Sigmoidoscopy Discontinued Goals Goal Patient Goal Type Associated Problems Recent Progress Patient-Stated? Author Blood Pressure < 130/80 Blood Pressure 132/72( 025 3:01 PM EDT) Yuan Verdugo MD Medical Devices Implanted Type Area Septic Technician Device Identifier Shelf Expiration Date Model / Serial / Lot Imp Resvr Titan Cl 125cc Implanted:Qty: 1 on 09/18/2023 by Erika Moody MD at [facility] Accessories N/A: Penis [employer] 07/01/2028 [id number] / / [id number] Description:COMBINED COST ON C1813 HCPCS IMPLANTS Titan Narrow Infrapubic Zero Angle 16cm Implanted:Qty: 1 on 09/18/2023 by Erika Moody MD at [facility] Accessories N/A: Penis [employer] 05/12/2028 [id number] / / [id number] Description:COMBINED COST ON C1813 HCPCS IMPLANTS THIS IMPLANT 9628.00 + 2114.00 + 666.00 = [id number] Kit Ext Nrw Bse Rear Tip Implanted:Qty: 1 on 09/18/2023 by Erika Moody MD at [facility] Accessories N/A: Penis [employer] 06/07/2028 [id number] / / [id number] Titan Assembly Kit [id number] Implanted:Qty: 1 on 09/18/2023 at [facility] Implant [employer] [id number] / / Description:COMBINED COST ON C1813 HCPCS IMPLANTS Procedures Procedure Name Priority Date/Time Associated Diagnosis Comments PSA/PROSTSPECAG DIAG Routine 09/29/2024 3:45 PM EDT History of prostate cancer UA DIP, URINE (POC) Routine 09/29/2024 3 :05 PM EDT ARTHROCENTESIS ASPIR&/INJ INTERM JT/BURS W/O US Routine 08/05/2024 12:27 PM EDT Arthritis of qrosmmut-qzaqftlho-osc pezoid joint of right hand ARTHROCENTESIS ASPIR&/INJ SMALL JT/BURSA W/O US BILATERAL Routine 08/05/2024 12:24 PM EDT Arthritis of carpometacarpal (CMC) joint of right thumb Arthritis of carpometacarpal (CMC) joint of left thumb COMPREHENSIVE METABOLIC PANEL STAT 01/16/2024 3:51 PM EDT from Last 3 Months or Most Recently Relevant to Health Maintenance Results * PROSTATE-SPECIFIC ANTIGEN DIAGNOSTIC (09/29/2024 3:45 PM EDT) PSA <0.02 <2.60 ng/mL 09/30/2024 4:35 PM EDT [facility] Comment:Total PSA test metho dology used is the Electrochemiluminescence Immunoassay by [employer]. Total PSA values by differing methodologies cannot be interchanged. Blood BLOOD SPECIMEN / Unknown Venipuncture / Unknown 09/29/2024 3:45 PM EDT 09/29/2024 3:45 PM EDT us Erik Cassidy MD LABORATORY Final Resul t Performing Organization Address [facility]/ZIP Co de Phone Number [facility] [address] [place] [address], [place] * (ABNORMAL) UA DIP, URINE (POC) (09/29/2024 3:05 PM EDT) GLUCOSE UA (POCT) 500(A) Negative mg/dL [facility] BILIRUBIN UA (POCT) Negative Negative [facility] KETONE UA (POCT) Negative Negative mg/dL [facility] SPECIFIC GRAVITY UA (POCT) 1.010 1.005 - 1.030 [facility] HEMOGLOBIN/BLOOD UA (POCT) Small(A) Negative [facility] PH UA (POCT) 5.5 4.5 - 8.0 [facility] PROTEIN UA (POCT) Negative Negative mg/dL [facility] UROBILINOGEN UA (POCT) 0.2 Normal E.U./dL [facility] NITRITE UA (POCT) Negative Negative [facility] LEUKOCYTES UA (POCT) Negative Negative [facility] COLOR UA (POCT) Dark yellow [facility] CLARITY UA (POCT) Clear [facility] 09/29/2024 3:05 PM EDT Narrative [facility] POINT OF CARE - 09/29/2024 3:05 PM EDT Location:[facility], [address] [place] [address], [address] us Erik Cassidy MD POC TESTING Final Resul t Performing Organization Address [facility]/ZIP Co de Phone Number [facility] POINT OF CARE [address] * ARTHROCENTESIS ASPIR&/INJ INTERM JT/BURS W/O US (08/05/2024 12:27 PM EDT) Narrative Mary Lemus PA-C - 08/05/2024 12:27 PM EDT Mary Lemus PA-C 08/05/2024 12:30 PM Medium Joint Arthro/Inj: R intercarpal 08/05/2024 12:27 PM The procedure site was prepped in the usual sterile fashion. Medications: 3 mg betamethasone acetate-betamethasone sodium phosphate 6 mg/mL Anesthetics: 0.5 mL lidocaine (PF) 10 mg/mL (1 %) Outcome: tolerated well, no immediate complications Post-injection instructions were reviewed with the patient and the patient voiced understanding of these instructions. Informed Consent Consent Obtained: Verbal Anderson Protocol A moment to CARE was completed. SIGN IN Personnel directly involved with the procedure wore the appropriate PPE. Special Equipment: N/A Patient/Surrogate Stated/Verified: Patient name, Date of , Relevant allergies and Intended procedure TIME OUT Relevant labs, photos, and/or imaging studies have been reviewed. Consent documented and matches the intended procedure. Correct side/site marked and visible. Medications required for procedure verified. Fire risk assessed and interventions discussed. No implant(s) inserted. SIGN OUT No specimen collected. All instruments, equipment, possible retained foreign bodies accounted for. No post-procedure POC communication to the patient's multidisciplinary team (including the bedside nurse for hospitalized patients) applicable. us Mary Lemus PA-C PROCEDURE Final Result * ARTHROCENTESIS ASPIR&/INJ SMALL JT/BURSA W/O US BILATERAL (08/05/2024 12:24 PM EDT) Narrative Mary Lemus PA-C - 08/05/2024 12:24 PM EDT Mary Lemus PA-C 08/05/2024 12:30 PM Small Joint Arthro/Inj: bilateral thumb CMC 08/05/2024 12:24 PM The procedure site was prepped in the usual sterile fashion. Medications (Right): 3 mg betamethasone acetate-betamethasone sodium phosphate 6 mg/mL Medications (Left): 3 mg betamethasone acetate-betamethasone sodium phosphate 6 mg/mL Anesthetics (Right): 0.5 mL lidocaine (PF) 10 mg/mL (1 %) Anesthetics (Left): 0.5 mL lidocaine (PF) 10 mg/mL (1 %) Outcome: tolerated well, no immediate complications Post-injection instructions were reviewed with the patient and the patient voiced understanding of these instructions. Informed Consent Consent Obtained: Verbal Anderson Protocol A moment to CARE was completed. SIGN IN Personnel directly involved with the procedure wore the appropriate PPE. Special Equipment: N/A Patient/Surrogate Stated/Verified: Patient name, Date of , Relevant allergies and Intended procedure TIME OUT Relevant labs, photos, and/or imaging studies have been reviewed. Intended patient and procedure match source documents. Consent obtained and matches the intended procedure. Correct side/site marked and visible. Medications required for procedure verified. Fire risk assessed and interventions discussed. No implant(s) inserted. SIGN OUT No specimen collected. All instruments, equipment, possible retained foreign bodies accounted for. The post-procedure POC has been communicated to the patient or surrogate. No post-procedure POC communication to the patient's multidisciplinary team (including the bedside nurse for hospitalized patients) applicable. Mary Lemus PA-C PROCEDURE Final Result from Last 3 Months Insurance * Guarantor: Mk Agustin Account Type Relation to Patient Date of Phone Billing Address Personal/Family Self 1950 04/[address] [place] [address] NEW [employer] LIFE SUPPLEMENT MEDICARE * Guarantor: JuniorruthMk Account Type Relation to Patient Date of Phone Billing Address Self Pay Self 1950 04/[address] [place] [address] Advance Directives Documents on File Type Date Recorded Patient Smoke Chaser Expl anation Advance Directive(s) 08/25/2018 2:52 PM Care Teams Hired Hand Relationship Specialty Start Date End Date Erik Lopez II, DO [address] [place] [address] [facility] [place] [place] [address] PCP - General Family Medicine 03/05/23 Nato Rosario MD [address] [place] [address] [place] [address] Physician Radiation Oncology 11/24/19 Erik Lopez II, DO [address] [place] [address] Referring Family Medicine 10/22/23
--- OUTSIDE RECORDS SUMMARY | 2024-11-05 15:26 | XMS_ITS | Encounter Summary ---
Demographics Address [address] [place] [address] Home Phone Mobile Phone Phone Email Address Preferred Language ENG Marital Status Jainism Affiliation Unknown Race White Ethnic Group Not or Lati no Author Organization [facility] Address [facility] [place] [address] Support Name Relationship Address Phone Isabela Agustin Spouse [address] [place] [address] Care Team Providers Care Senior Graphic Designer Name Role Phone Bipin Ornelas MD Primary Care Provider Nato Rosario MD Unavailable John BLANDON DO, Robert James Primary Care Provid er John BLANDON DO, Robert James Unavailable [phone] Source Comments In the event this information is protected by the Federal Confidentiality of Alcohol and Drug AbusePatient Records regulations: The Federal rules restrict any use of the information to criminally investigate or prosecute any alcohol or drug abuse patient.[facility] Encounter Details Date Type Department Care Team (Late st Contact Info) Description 01/21/2019 Patient Msg Urology [address] [place] [address] Erik Cassidy MD [address] [place] [address] PSA Social History Tobacco Use [...] 9:30 AM EDT Office Visit Orthopaedics [address] [place] [address] Mary Lemus PA-C [address] [place] [address] 4 month f/u 02/25/2025 2:00 PM EST Office Visit Urology [address] [place] [address] Ellie Arroyo APRN.WEATHERIZATION CREW LEADER [address] [place] [address] FOLLOW UP 03/07/2025 10:00 AM EST Office Visit [facility] [address] [place] [address] Lab 03/14/2025 10:00 AM EST Office Visit Radiation Oncology [address] [place] [address] Sigifredo Corona MD [address] [place] [address] Lab 04/07/2025 9:30 AM EST Office Visit Urology [address] [place] [phone] Janell Hill MD [address] [facility] [place] [place] [id number] 6 month Cystoscopy documented as of this encounter Visit Diagnoses Not on filedocumented in this encounter Care Teams Senior Graphic Designer Relationship Specialty Start Date End Date Bipin Ornelas MD [address] [place] [address] PCP - General Family Medicine 08/25/18 03/04/23 Erik Lopez II, DO [address] [place] [address] PCP - General Family Medicine 03/05/23 Nato Rosario MD [address] [place] [address] Physician Radiation Oncology 11/24/19 Erik Lopez II, DO [address] [place] [address] Referring Family Medicine 10/22/23 documented as of this encounter
--- OUTSIDE RECORDS SUMMARY | 2024-11-05 15:26 | XMS_ITS ---
Demographics Address [address] [place] [address] Home Phone Mobile Phone Phone Email Address Preferred Language ENG Marital Status Anabaptism Affiliation Unknown Race White Ethnic Group Not or Lati no Author Organization [facility] Address [address] [place], [place] [address] Support Name Relationship Address Phone Isabela Agustin Spouse [address] [place] [address] Care Team Providers Care Retail And Promotions Coordinator Name Role Phone Nato Rosario MD Unavailable John BLANDON DO, Robert James Primary Care Provid er John BLANDON DO, Robert James Unavailable [phone] Active Problems Problem Noted Date Diagnosed Date [...] rare (<1.0%). Isolated VEs were frequent (7.9%, [address]), VE Couplets were rare (<1.0%, 3272), and [...] 3:59 PM EDT): Assessment: Lipitor Patient is Buddhist Overview (08/25/2018): Refuses blood products Assessment & Plan (08/25/2018 4:04 PM EDT): Assessment: States he refuses blood products Current Treatment and Therapy Plans No current plan information found. Past Treatment and Therapy Plans NON-CHEMO 1 Plan Name Start Date Discontinue Date Treatment Medications Discontinue Reason Plan Provider Cycles LEUPROLIDE 7.5 D1 - Q30D 01/20/20 20 11/02/2021 leuprolide (LUPRON DEPOT) Sigifredo Huang MD 5 of 6 cycles started
--- OUTSIDE RECORDS SUMMARY | 2024-11-05 15:26 | XMS_ITS | Encounter Summary ---
Demographics Address [address] [place] [address] Home Phone Mobile Phone Phone Email Address Preferred Language ENG Marital Status Faith Affiliation Unknown Race White Ethnic Group Not or Lati no Author Organization [facility] Address [facility] [place] [address] Support Name Relationship Address Phone Isabela Agustin Spouse [address] [place] [address] Care Team Providers Care Electrical Automation Engineer Name Role Phone Bipin Ornelas MD Primary Care Provider Nato Rosario MD Unavailable [phone] John BLANDON DO, Robert James Primary Care Provid er John BLANDON DO, Robert James Unavailable [phone] Source Comments In the event this information is protected by the Federal Confidentiality of Alcohol and Drug AbusePatient Records regulations: The Federal rules restrict any use of the information to criminally investigate or prosecute any alcohol or drug abuse patient.[facility] Encounter Details Date Type Department Care Team (Late st Contact Info) Description 08/19/2019 Patient Msg Urology [address] [place] [address] Erik Cassidy MD [address] [place] [address] PSA Social History Tobacco Use [...] have Coronavirus / COVID-19? No / Unsure 08/18/2019 9:37 AM EDT documented as of this encounter [...] 9:30 AM EDT Office Visit Orthopaedics [address] [place] [address] Mary Lemus PA-C [address] [place] [address] 4 month f/u 02/25/2025 2:00 PM EST Office Visit Urology [address] [place] [id number] Ellie Arroyo APRN.WEB SITE DESIGNER [address] [place] [address] FOLLOW UP 03/07/2025 10:00 AM EST Office Visit [facility] Laboratory [address] [place] [address] Lab 03/14/2025 10:00 AM EST Office Visit Radiation Oncology [address] [place] [address] Sigifredo Corona MD [address] [place] [address] Lab 04/07/2025 9:30 AM EST Office Visit Urology [address] [place] [id number] Janell Hill MD [address] [place] [address] 6 month Cystoscopy documented as of this encounter Visit Diagnoses Not on filedocumented in this encounter Care Teams Electrical Automation Engineer Relationship Specialty Start Date End Date Bipin Ornelas MD [address] [place] [address] PCP - General Family Medicine 08/25/18 03/04/23 Erik Lopez II, DO [address] [place] [address] [place] [address] PCP - General Family Medicine 03/05/23 Nato Rosario MD [address] [place] [address] Physician Radiation Oncology 11/24/19 Erik Lopez II, DO [address] [place] [address] Referring Family Medicine 10/22/23 documented as of this encounter
--- OUTSIDE RECORDS SUMMARY | 2024-11-05 15:26 | XMS_ITS | Encounter Summary ---
Demographics Address [address] [place] [address] Mobile Phone Home Phone Email Address Preferred Language Sami Marital Status Zoroastrian Affiliation Unknown Race White Ethnic Group Not or Lati no Author Organization [facility] Address [address] [facility], [address] [place] [address] Support Name Relationship Address Phone Isabela Agustin Personal Relationship [address] [place] [address] Care Team Providers Care Geriatric Personal Care Aide Name Role Phone Nila Overton DO Primary Care Provider [phone] Reason for Visit * Reason Comments Medication Refill Encounter Details Date Type Department Care Team (Late st Contact Info) Description 01/26/2018 [facility] Pulmonology [address] [place], [place] [id number] Kayce Abad PA-C Medication Refill Social History Tobacco Use Types Packs/Day Years Used Date Smoking Tobacco: Passive Smo ke Exposure - Never Smoker Smokeless Tobacco: Never Alcohol Use Standard Drinks/Week [...] documented as of this encounter Visit Diagnoses Diagnosis Bronchiectasis without complication (HCC)- Primary Bronchiectasis without acute exacerbation documented in this encounter Care Teams Geriatric Personal Care Aide Relationship Specialty Start Date End Date Nila Overton, PCP - General Family Medicine 12/29/15 documented as of this encounter
--- OUTSIDE RECORDS SUMMARY | 2024-11-05 15:26 | XMS_ITS | Encounter Summary ---
Demographics Address [address] [place] [address] Home Phone Mobile Phone Phone Email Address Preferred Language ENG Marital Status Sikh Affiliation Unknown Race White Ethnic Group Not or Lati no Author Organization [facility] Address [address] [place] [address] Support Name Relationship Address Phone Isabela Agustin Spouse [address] [place] [address] Care Team Providers Care Cytology Laboratory Manager Name Role Phone Nato Rosario MD Unavailable [phone] John BLANDON DO, Robert James Primary Care Provid er John BLANDON DO, Robert James Unavailable [phone] Source Comments In the event this information is protected by the Federal Confidentiality of Alcohol and Drug AbusePatient Records regulations: The Federal rules restrict any use of the information to criminally investigate or prosecute any alcohol or drug abuse patient.[facility] Encounter Details Date Type Department Care Team (Late st Contact Info) Description 02/10/2024 Patient Msg Spine Center [address] [place] [address] [id number] Mary Mabry, KEMAL.[facility] [address] [place] [address] wrist specialist Social History Tobacco Use Types Packs/Day Years [...] is lower risk 6 09/05/2022 Data from: https://www.neighborhoodatlas.medicine.[facility].edu/. Last address used for calculation [address] [facility] 09/05/2022 Sex and Gender Information Value Date [...] 9:30 AM EDT Office Visit Orthopaedics [address] [place] [address] Mary Lemus PA-C [address] [place] [address] 4 month f/u 02/25/2025 2:00 PM EST Office Visit Urology [address] [place] [address] Ellie Arroyo APRN.ROOF PANEL HANGER [address] [place] [address] FOLLOW UP 03/07/2025 10:00 AM EST Office Visit [facility] Laboratory [address] [place] [address] Lab 03/14/2025 10:00 AM EST Office Visit Radiation Oncology [address] [address] [place] [address] Sigifredo Corona MD [address] [facility] [facility] [address] [place] [address] Lab 04/07/2025 9:30 AM EST Office Visit Urology [address] [place] [address] Janell Hill MD [address] [place], [place] [address] 6 month Cystoscopy documented as of this encounter Goals Goal Patient Goal Type Associated Problems Recent Progress Patient-Stated? Author Blood Pressure < 130/80 Blood Pressure 132/72( 025 3:01 PM EDT) No Yuan Sloan MD documented as of this encounter Visit Diagnoses Not on filedocumented in this encounter Care Teams Cytology Laboratory Manager Relationship Specialty Start Date End Date Erik Lopez II, DO [address] [place] [address] [place] [address] PCP - General Family Medicine 03/05/23 Nato Rosario MD [address] [place] [address] [place] [address] Physician Radiation Oncology 11/24/19 Erik Lopez II, DO [address] [place] [address] Referring Family Medicine 10/22/23 documented as of this encounter
--- OUTSIDE RECORDS SUMMARY | 2024-11-05 15:26 | XMS_ITS | Patient Health Record ---
Demographics Address [address] [place] [address] Mobile Email Address Preferred Language en Marital Status Hoahaoism Affiliation Unknown Race White Ethnic Group Not or Lati no Author Organization [facility] Address [address] [place] [address] Support Name Relationship Address Phone SELENE JAMES Emergency Contact [address] [place] [address] DOYLE JAMES Guarantor Unknown [phone] Care Team Providers Care Group Teacher Name Role Phone Maoyahir Shelly Primary Care Provider [phone] Dr. Femi Chappell Unavailable [phone] Reason For Referral No Information Encounters Encounter Location Date Provider Diagnosis [facility] [address] [place] [address] 09/27/2024 Femi Dobbins Encounter for den tutu examination and cleaning with abnormal findings Z01.21 ; Disturbances in tooth eruption K00.6 ; Other dental procedure status Z98.818 ; Dental caries on pit and fissure surface penetrating into dentin K02.52 ; Necrosis of pulp K04.1 ; Partial loss of teeth, unspecified cause, class I K08.401 and Cracked tooth K03.81 Assessments Encounter Date Diagnosis (ICD Code) Assessment Notes Treatment Notes Treatment Clinical Notes Section Notes 09/27/2024 Encounter for dental examination and cleaning with abnormal findings (ICD-10 - Z01.21) 09/27/2024 Disturbances in tooth eruption (ICD-10 - K00.6) 09/27/2024 Other dental procedure status (ICD-10 - Z98.818) 09/27/2024 Dental caries on pit and fissure surface penetrating into dentin (ICD-10 - K02.52) 09/27/2024 Necrosis of pulp (ICD-10 - K04.1) 09/27/2024 Partial loss of teeth, unspecified cause, class I (ICD-10 - K08.401) 09/27/2024 Cracked tooth (ICD-10 - K03.81) Plan Of Treatment No Information
--- OUTSIDE RECORDS SUMMARY | 2024-11-05 15:26 | XMS_ITS | Encounter Summary ---
Demographics Address [address] [place] [address] Home Phone Mobile Phone Phone Email Address Preferred Language ENG Marital Status Caodaism Affiliation Unknown Race White Ethnic Group Not or Lati no Author Organization [facility] Address [address] [place] [address] Support Name Relationship Address Phone Isabela Agustin Spouse [address] [place] [address] Care Team Providers Care Embedded Software Design Engineer Name Role Phone Nato Rosario MD Unavailable [phone] John BLANDON DO, Robert James Primary Care [facility] er John BLANDON DO, Robert James Unavailable [phone] Source Comments In the event this information is protected by the Federal Confidentiality of Alcohol and Drug AbusePatient Records regulations: The Federal rules restrict any use of the information to criminally investigate or prosecute any alcohol or drug abuse patient.[facility] Encounter Details Date Type Department Care Team (Late st Contact Info) Description 09/18/2023 Get Medical Advice Urology [address] [place], [place] [phone] Erika Moody MD [address] [place] [address] Romeo jones outpatient surgery Social History Tobacco Use Types Packs/Day Years [...] risk 6 09/05/2022 Data from: https://www.neighborhoodatlas.[facility].edu/. Last address used for calculation [address] [facility] 09/05/2022 Sex and Gender Information Value [...] 9:30 AM EDT Office Visit Orthopaedics [address] [place] [address] Mary Lemus PA-C [address] [place] [address] 4 month f/u 02/25/2025 2:00 PM EST Office Visit Urology [address] [place] [address] Ellie Arroyo APRN.FIRE PREVENTION FORESTER [address] [place] [address] FOLLOW UP 03/07/2025 10:00 AM EST Office Visit [facility] Laboratory [address] [place] [address] Lab 03/14/2025 10:00 AM EST Office Visit Radiation Oncology [address] [place] [address] Sigifredo Corona MD [address] [place] [address] Lab 04/07/2025 9:30 AM EST Office Visit Urology [address] [place] [address] Janell Hill MD [address] [place] [address] 6 month Cystoscopy documented as of this encounter Goals Goal Patient Goal Type Associated Problems Recent Progress Patient-Stated? Author Blood Pressure < 130/80 Blood Pressure 132/72( 025 3:01 PM EDT) Yuan Verdugo MD documented as of this encounter Visit Diagnoses Not on filedocumented in this encounter Care Teams Embedded Software Design Engineer Relationship Specialty Start Date End Date Erik Lopez II, DO [address] [place] [address] [place] [address] PCP - General Family Medicine 03/05/23 Nato Rosario MD [address] [place] [address] [place] [address] Physician Radiation Oncology 11/24/19 Erik Lopez II, DO [address] [place] [address] Referring Family Medicine 10/22/23 documented as of this encounter
--- OUTSIDE RECORDS SUMMARY | 2024-11-05 15:26 | XMS_ITS | Patient Health Record ---
Demographics Address [address] [place] [address] Mobile Email Address Preferred Language en Marital Status Advent Affiliation Unknown Race White Ethnic Group Not or Lati no Author Organization [facility] Address [address] [place] [address] [place] [address] Support Name Relationship Address Phone Isabela Agustin Emergency Contact [address] [place] [address] Mk Agustin Guarantor Unknown Unavailable Care Team Providers Care Art Consultant Name Role Phone Erik Lopez Primary Care Provider UnavailJamarcus Moncada Unavailable [phone] Allergies Allergen (clinical drug ingredient) Drug/Non Drug Allergy documented on EMR Reaction Allergy Type Onset Date Status penicillamine penicillAMINE rash Drug Allergy Active Reason For Referral No Information Medications Medication SIG (Take, Route, Frequency, Duration) Notes Start Date End Date Status Ventolin HFA 108 (90 Base) MCG/ACT 1 puff as needed Inhalation every 4 hrs Active diazePAM 2 MG 1 tablet as needed O rally for anxiety Active Carvedilol 3.125 MG 1 tablet with food O rally Twice a day Active Vitamin D 50 MCG (1999 UT) 1 tablet Oral ly Once a day Active Aspirin Adult Low Dose 81 MG 1 tablet Orally Once a day Active Atorvastatin Calcium 40 MG 1 tablet Oral ly Once a day Active DULoxetine HCl 30 MG 1 capsule Orally On ce a day Active Fish Oil 500 MG [address] ee times a day Active Turmeric Complex/Black Pepper 500-3 MG as directed Orally Active Social History Tobacco Use: Social History Observation Description Date Details (start date - stop date) Never Smoker NA - NA tobacco use Question Answer Notes Patient is a: non smoker Problems Problem Type SNOMED Code ICD Code Onset Dates Problem Status W/U Status Risk Notes Problem Pain in limb (84000125) Pain in right toe(s) (M79.674) Active confirmed Problem Pain in limb (47729007) Pain in left toe(s) (M79.675) Active confirmed Problem Tinea unguium (922323253) Tinea unguium (B35.1) Active confirmed Problem Depression (829862942) Depression, unspecified (F32.A) Active confirmed Vital Signs Blood pressure diastolic 84 mm Hg 04/01/2024 Height 71 in 04/01/2024 Blood pressure systolic 126 mm Hg 04/01/2024 Weight 215 lbs 04/01/2024 BMI 29.98 04/01/2024 Encounters Encounter Location Date Provider Diagnosis [facility] [address] [place] [address] 04/01/2024 Jamarcus Truong Depression, unspecified F32.A ; Pain in right toe(s) M79.674 ; Pain in left toe(s) M79.675 and Tinea unguium B35.1 Assessments Encounter Date Diagnosis (ICD Code) Assessment Notes Treatment Notes Treatment Clinical Notes Section Notes 04/01/2024 Pain in right toe(s) (ICD-10 - M79.674) 04/01/2024 Depression, unspecified (ICD-10 - F32.A) 04/01/2024 Pain in left toe(s) (ICD-10 - M79.675) 04/01/2024 Tinea unguium (ICD-10 - B35.1) I am treating this patient with a minmal risk of morbidity for nail fungus. I discussed with the patient the etiology and treatment for onychomycosis including but not limited to periodic debridement, oral therapy with Lamisil or Sporanox, topical therapy such as Penlac or Formula 3, removal of the nail, and laser therapy. Pt. agreed to periodic debridement today. Plan Of Treatment No Information Insurance Providers Payer Name Payer Address Payer Phone Subscriber Number Group Number Insured Name Patient Relationship to Insured Coverage Start Date Coverage End Date Medicare Part B J-15 Part [facility] [place] [address] [place] [address] [id number] Mk Agustin Self - patient is the insured [employer] [address] [address] [place] [address] [id number] Mk Agustin Self - patient is the insured Medical (General) History Medical History History ICD Code Depression Heart attack Rheumatoid arthritis h/o prostate cancer Hyperlipidemia arrhythmia Surgical History Surgery Date(Month/Year) prostate 2018 Hospitalization History Reason Date(Month/Year) heart attack 2018
--- OUTSIDE RECORDS SUMMARY | 2024-11-05 15:26 | XMS_ITS | Encounter Summary ---
Demographics Address [address] [place] [address] Home Phone Mobile Phone Phone Email Address Preferred Language ENG Marital Status Adventism Affiliation Unknown Race White Ethnic Group Not or Lati no Author Organization [facility] Address [facility] [place] [address] Support Name Relationship Address Phone Isabela Agustin Spouse [address] [place] [address] Care Team Providers Care Heel Seat Fitter Name Role Phone Bipin Ornelas MD Primary Care Provider Nato Rosario MD Unavailable [phone] John BLANDON DO, Robert James Primary Care Provid er John BLANDON DO, Robert James Unavailable [phone] Source Comments In the event this information is protected by the Federal Confidentiality of Alcohol and Drug AbusePatient Records regulations: The Federal rules restrict any use of the information to criminally investigate or prosecute any alcohol or drug abuse patient.[facility] Encounter Details Date Type Department Care Team (Late st Contact Info) Description 09/04/2021 Patient Msg Urology [address] [place] [address] Erik Cassidy MD [address] [place] [address] PSA Social History Tobacco Use [...] N ot on file 09/05/2021 Data from: https://www.neighborhoodatlas.medicine.[facility].edu/. Last address used for calculation [address]01 [facility] 09/05/2021 Sex and Gender Information Value Date Recorded Sex Assigned at Male 11/17/2019 1:04 AM EDT Legal Sex Male 9:48 AM EST Gender Identity Male 11/17/2019 1:04 AM EDT Sexual Orientation Bisexual 11/17/2019 1: 04 AM EDT COVID-19 Exposure Response Date Recorded In the last 10 days, have yo u been in contact with someone who was confirmed or suspected to have Coronavirus/COVID-19? No / Unsure 09/07/2021 10:00 AM EDT documented as of this encounter Functional Status * Are you deaf or do you have serious difficulty hearing? Answer Date of Assessment Author No 09/04/2018 4:07 PM EDIsela Cardenas RN * Are you blind or do [...] 9:30 AM EDT Office Visit Orthopaedics [address] [place] [address] Mary Lemus PA-C [address] [place] [address] 4 month f/u 02/25/2025 2:00 PM EST Office Visit Urology [address] [place] [address] Ellie Arroyo APRN.SALES LEAD GENERATOR [address] [place] [address] FOLLOW UP 03/07/2025 10:00 AM EST Office Visit [facility] Laboratory [address] [place] [address] [place] [address] Lab 03/14/2025 10:00 AM EST Office Visit Radiation Oncology [address] [place] [address] [place] [address] Sigifredo Corona MD [address] [place] [address] Lab 04/07/2025 9:30 AM EST Office Visit Urology [address] [place] [address] Janell Hill MD [address] [place] [address] 6 month Cystoscopy documented as of this encounter Visit Diagnoses Not on filedocumented in this encounter Care Teams Heel Seat Fitter Relationship Specialty Start Date End Date Bipin Ornelas MD [facility] [address] [facility] [address] [place] [address] PCP - General Family Medicine 08/25/18 03/04/23 Erik Lopez II, DO [address] [place], [place] [address] [address] PCP - General Family Medicine 03/05/23 Nato Rosario MD [address] [place] [address] [place] [address] Physician Radiation Oncology 11/24/19 Erik Lopez II, DO [address] [address] [place] [address] Referring Family Medicine 10/22/23 documented as of this encounter
--- OUTSIDE RECORDS SUMMARY | 2024-11-10 23:59 | XMS_ITS | Continuity of Care Document ---
Demographics Address [address] [place], [place] [id number] Mobile Email Address Preferred Language en Marital Status Anabaptism Affiliation Gnosticist Race White Ethnic Group Not or Lati no Author Organization [facility] Address Unknown Support Name Relationship Address Phone MORR, SELENE [...] spouse Unknown Unavailable Care Team Providers Care Liquid Yeast Supervisor Name Role Phone Erik Lopez Primary Care Physician Unavail able Encounter FT_FIN [id number] Date(s): 11/10/24 - 11/10/24 [facility] [address] [place] [address]- Discharge Disposition: Home (Routine DC) Attending Physician: Aureliano Arroyo DO Admitting Physician: Aureliano Arroyo DO Referring Physician: Erik Lopez DO Encounter Type: Outpatient Allergies, Adverse Reactions, Alerts Substance Criticality Severity Reaction Reaction Severity Status Tape Skin tear Active penicillins Rash Active Vitamin B-12 Low criticality Mild Hives A ctive Assessment and Plan Extracted from: Title:Right shoulder intra-a rticular corticosteroid injection Author:Aureliano Arroyo DO Date:11/10/24 An in office procedure was p erformed today for M19.011 Right shoulder osteoarthritis M25.501, right shoulder pain. Risks and benefits were discussed at length, verbal consent was obtained from the patient. The area was prepped under strict aseptic technique using chloraprep solution. Location: Posterior aspect of the right glenohumeral joint by palpation of bony landmarks. Anatomic Landmarks: Palpation of bony landmarks. Medications: 3 cc of 0.25% bupivacaine with 1 cc of 40 mg/mL triamcinolone. Procedure: Using a 25-gauge 1.5 inch needle, the above medication was injected under strict aseptic technique into the right shoulder joint with negative aspiration performed prior to injection of the above medication volume. the patient tolerated the procedure well without complication and will follow up regarding changes after procedure. Patient observed post-procedure without further issue or new complaints. Improvement in pain was noted. Future Appointments Appointment Date:11/12/2024 10:45:00 AM Scheduled Provider: Location[place] Appointment Type:PT 45 (FT) Appointment Date:11/16/2024 08:30:00 AM Scheduled Provider: Location[place] Appointment Type:PT 45 (FT) Appointment Date:11/18/2024 10:45:00 AM Scheduled Provider: Location[place] Appointment Type:PT 45 (FT) Appointment Date:11/23/2024 09:15:00 AM Scheduled Provider: Location[place] Appointment Type:PT 45 (FT) Appointment Date:11/25/2024 08:30:00 AM Scheduled Provider: Location[place] Appointment Type:PT 45 (FT) Appointment Date:11/30/2024 10:00:00 AM Scheduled Provider: Location[place] Appointment Type:PT Re-Eval 45 (FT) Appointment Date:12/02/2024 08:30:00 AM Scheduled Provider: Location[place] Appointment Type:PT 45 (FT) Appointment Date:12/07/2024 08:30:00 AM Scheduled Provider: Location[place] Appointment Type:PT 45 (FT) Appointment Date:12/09/2024 11:30:00 AM Scheduled Provider: [facility]:PT Re-Eval 45 (FT) Appointment Date:12/21/2024 01:00:00 PM Scheduled Provider: Location:[facility] Appointment Type: Medicare Wellness Subsequent Appointment Date:12/30/2024 09:45:00 AM Scheduled Provider:Hussein Cruz PA-C [facility] Type:Cardiology Follow Up (FT) Appointment Date:12/31/2024 08:20:00 AM Scheduled Provider:Erik Lopez DO Location:[facility] Appointment Type: Procedure Future Scheduled Tests Laboratory* [...] diphtheria/pertussis, acel/tetanus adult 05/14/10 Recorded SARS-CoV-2 (COVID-19) [id number] 03/15/22 Given SARS-CoV-2 (COVID-19) mRNA BNT-162b2 vax [...] Daily, # 30 tab(s), Refills(s) 3, Pharmacy: [id number], 180, cm, 02/11/22 13:34:00 EST, Height/Length Dosing, 97, kg, 02/11/22 13:34:00 EST, Weight Dosing Start Date: 02/11/22 Status: Ordered Quantity: 30.0 Unit: tab(s) Repeat number: 4 atorvastatin 40 mg Tab 40 mg = 1 tab(s), Oral, Daily, # 90 tab(s), Refills(s) 3, [id number] 177, cm, 11/03/23 14:42:00 EDT, Height/Length Dosing, 96.2, kg, 11/03/23 14:42:00 EDT, Weight Dosing Start Date: 11/03/23 Status: Ordered Quantity: 90.0 Unit: tab(s) Repeat number: 4 carvedilol 3.125 mg Tab 3.125 mg = 1 tab(s), Oral, BID, # 180 tab(s), Refills(s) 3, Pharmacy: [facility]/pharmacy #[id number], 177, cm, 11/03/23 14:42:00 EDT, Height/Length [...] BID, # 180 cap(s), Refills(s) 4, Pharmacy: [facility]/pharmacy #[id number], 180, cm, 12/02/23 9:24:00 EDT, Height/Length [...] Repeat number: 1 valsartan 40 mg Tab 20 mg, Oral, Daily, Refills(s) 0 Start Date: 11/10/24 Status: Ordered Repeat number: 1 Problem List Condition Confirmation Course Effective Dates [...] 35% per patient when he was in [facility]. Patient was started on Jardiance 10 mg [...] Hussein Cruz PA-C noted hospitalization while in [place] --- went to the ED for rectal bleed, found to have frequent PVCs evaluated with echo and left heart cath PVC ablation started on amiodarone for PVCs as well as carvedilol having some dizziness at home with low HR 1. PVCs on new meds -- requesting referral to EP cardiology *jo 2. CAD - recent cath in [place] revealed mild disease; on aspirin 81mg, atorvastatin 40mg and cardvedilol 3.125mg BID; asymptomatic 3. CHF - ef down to 35% -- started on jardiance 10mg, valsartan 40mg and spironolactone 12.5mg daily 3added per 04/07/2023 query response. Procedures Procedure Date Related Diagnosis Body Site Status Injection of shoulder 1 07/30/24 C ompleted Ablation 2 07/05/24 Completed Colonoscopy 3 07/04/24 Completed Catheterization of left heart 4 07/02/24 Completed Injection of steroid into sh oulder joint 04/02/24 Completed Injection of right shoulder 12/26/23 Completed Right shoulder injection 5 08/28/23 Completed Shoulder injection 6 03/28/23 Comp leted Epidural injection of cervic al spine using fluoroscopic guidance 7 10/16/22 Co mpleted MRI with sedation 09/13/22 Complet ed Catheterization of left heart 01/17/22 Completed Lipoma of back 8 Complete d Procedure 9 Completed Prostate 10 Completed Tooth extraction Complete d Tooth extraction Complete d Unlisted procedure, foot or toes Completed Vasectomy Completed 1Right 2Done at [facility] 3Done at [facility] 4Done in [facility] in [facility] 5100% until last week 6100% relief for 5 months 7C7/T1 TONO 25 % relief, can turn more to the left 8removal 9Infrapubic coloplast 10removed Social History Social History Type Response Smoking Status Never (less than 100 in lifetime);Never; Concerns about tobacco use in household: No entered on: 10/11/24 Sex Male Sex Representation Male (finding) Physician Outpatient Note * Nara Muniz Y: PERFORM Event Display: Office/Clinic Note-Physician Authored Date: [id number] Surgical operation note * Aureliano Arroyo DO: PERFORM Event Display: Operative Report Authored Date: [id number] An in office procedure was performed today for M19.011 Right shoulder osteoarthritis M25.501, rightshoulder pain. Risks and benefits were discussed at length, verbal consent was obtained from the patient. The areawas prepped under strict aseptic technique using chloraprep solution. Location: Posterior aspect of the right glenohumeral joint by palpation of bony landmarks. Anatomic Landmarks: Palpation of bony landmarks. Medications: 3 cc of 0.25% bupivacaine with 1 cc of 40 mg/mL triamcinolone. Procedure: Using a 25-gauge 1.5 inch needle, the above medication was injected under strict aseptictechnique into the right shoulder joint with negative aspiration performed prior to injection of the above medication volume. the patient tolerated the procedure well without complication and will follow up regarding changes after procedure. Patient observed post-procedure without further issue or new complaints. Improvement in pain was noted. Electronically Signed By: Aureliano Arroyo DO Date and Time Signed: 11/10/24 14:59 EDT Patient Care team information Care Team Personnel Name: Radha Shipman RN Position: FT Utility Driver - Self Assign Member Role: Cupola Liner Name: Erik Lopez DO Position: FT Ambulatory - Primary Care Provider? Member Role: Primary Care Physician Address: [address] [place] [id number] Care Team Related Persons Name: SELENE JAMES Name: SELENE JAMES Name: SELENE JAMES Name: SELENE JAMES Name: SELENE JAMES Name: SELENE JAMES Insurance Providers Guarantor name: DOYLE [facility] [employer] Plan Information #: 1 Payer: NA Payer Identifier: [id number] Member Number: [id number] Group Number: A AND B Subscriber Identifier: [id number] Relationship to Subscriber: Self Coverage Type: MEDICARE Coverage Verification Date: 24 Telecom: ARLETH Address: Health Plan Information #: 2 Payer: ARLETH Payer Identifier: ARLETH Member Number: [id number] Group Number: [id number] [id number] Subscriber Identifier: [id number] Relationship to Subscriber: Self Coverage Type: PRIVATE HEALTH INSURANCE Coverage Verification Date: ARLETH Telecom: ARLETH Address:
--- NOTE | 2024-11-16 15:50 | CA_ITS ---
Patient Name: DOYLE JAMES MR#: [id number] : 1950 Exam Date: 11/16/2024 Ordering Doctor: MELISSA ORR ECHOCARDIOGRAM REPORT PROCEDURE: CA ECHO DOPPLER COMPLETE INDICATIONS: Abnormal EKG COMPARISON: None. DESCRIPTION: COMPLETE ECHOCARDIOGRAM Real-time transthoracic echocardiography with 2D, M-mode, spectral and color flow Doppler performed. QUALITY: Technical quality was good. LEFT VENTRICLE: Mild dilatation. Borderline left ventricular hypertrophy. Systolic function is at the lower limits of normal. LV EF: Lower limits of normal left ventricular ejection fraction, (50-55%). DIASTOLIC: Grade I diastolic dysfunction. ATRIAL SEPTUM: LEFT ATRIUM: Moderate dilatation. RIGHT ATRIUM: Severe dilatation. RIGHT VENTRICLE: Mild dilatation. Normal right ventricular systolic function. TRICUSPID VALVE: Normal mobility and thickness. No stenosis with mild to moderate regurgitation. Mild pulmonary hypertension. RVSP 39 mmHg. 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 MITRAL VALVE: Normal mobility and thickness. No evidence of mitral valve stenosis. Mild mitral annular calcification. Mild mitral regurgitation. AORTIC VALVE: Normal trileaflet appearance. No visible sclerosis. Normal leaflet mobility. No evidence of aortic valve stenosis. Mild to moderate aortic regurgitation. AORTIC ROOT: Moderately dilated, measuring 4.6 cm. The ascending aorta is mildly dilated and measures 3.9 cm. PULMONIC VALVE: Normal thickness and mobility. No stenosis. Trivial regurgitation. PERICARDIUM: No evidence of pericardial effusion. IVC: Collapses with inspiration. Normal size. PLEURA: CONCLUSION: 1. Mild eccentric left ventricular hypertrophy with low normal systolic function. Estimated LVEF is 50 to 55%. 2. Mildly dilated right ventricle with normal systolic function. 3. Mild diastolic dysfunction. 4. Moderate to severe biatrial dilatation. 5. Mild to moderate aortic and tricuspid regurgitation. 6. Mild mitral regurgitation. 7. Mildly elevated right-sided pressures. RVSP is 39 mmHg. 8. Moderately dilated aortic root measuring 4.6 cm. The ascending aorta is mildly dilated at 3.9 cm. Adult Echocardiography Procedure Report Left Ventricle LVEDD (3.7 - 5.6 cm): 5.79 cm LVESD (2.2 - 4.0 cm): 4.42 cm LVIVS thickness (0.6 - 1.2 cm): 1.07 cm LVPW thickness (0.5 - 1.0 cm): 0.93 cm e': 0.05 m/s E - e': 9.07 LVOT Max Gradient: 2.29 mm[Hg] LVOT Area (cm2): 0.76 m/s Peak Velocity (LVOT): 0.76 m/s Mean Velocity (LVOT): 0.50 m/s LVOT Diameter 2.41 cm Left Ventricular Ejection Fraction: 50-55 % Left Atrium LA Volume Index (2D A2C): 37.10 ml/m2 Left Atrium Systolic Dimension: 4.44 cm Mitral Valve MV E to A Ratio: 0.55 Mitral Valve A-Wave Peak Velocity: 0.76 m/s Mitral Valve E-Wave Peak Velocity: 0.42 m/s Right Ventricle RV Internal Diastolic Dimension: 4.21 cm Aorta AO Root Diam: 4.65 cm Ascending Ao Diam: 3.86 cm Aortic Valve AoV Area (Peak Goldy): 3.06 cm2, 3.06 cm2 AoV Area (VTI): 3.61 cm2, 3.61 cm2 Deceleration Cook: 1.33 m/s2 Pressure Half-Time: 858.20 ms Peak Velocity(Antegrade Flow): 1.13 m/s Peak Gradient(Antegrade Flow): 5.09 mm[Hg] Mean Velocity(Antegrade Flow): 0.71 m/s Mean Gradient(Antegrade Flow): 2.48 mm[Hg] Velocity Time Integral: 24.02 cm Tricuspid Valve Peak Velocity (Regurgitant Flow): 2.84 m/s, 2.86 m/s, 3.01 m/s, 2.70 m/s Pulmonic Valve Peak Velocity: 1.02 m/s Peak Gradient: 3.25 mm[Hg], 5.11 mm[Hg] Right Atrium Right Atrium Systolic Pressure: 99.68 ml, 99.68 ml Dictated by: Pancho Dykes M.D. on 11/16/2024 at 20:49 Approved by: Pancho Dykes M.D. on 11/16/2024 at 20:53
--- OUTSIDE RECORDS SUMMARY | 2024-11-16 15:50 | XMS_ITS | Encounter Summary ---
Demographics Address [address] [place] [address] Home Phone Mobile Phone Phone Email Address Preferred Language ENG Marital Status Mu-Ism Affiliation Unknown Race White Ethnic Group Not or Lati no Author Organization [facility] Address [address] [place], [place] [id number] Support Name Relationship Address Phone Isabela Agustin Spouse [address] [place] [address] Care Team Providers Care Development Technical Lead Name Role Phone Charles Hummel MD Primary Care Provider [phone] Bipin Ornelas MD Primary Care Provider Nato Rosario MD Unavailable [phone] John BLANDON DO, Robert James Primary Care Provid er John BLANDON DO, Robert James Unavailable [phone] Source Comments In the event this information is protected by the Federal Confidentiality of Alcohol and Drug AbusePatient Records regulations: The Federal rules restrict any use of the information to criminally investigate or prosecute any alcohol or drug abuse patient.[facility] Encounter Details Date Type Department Care Team [...] 9:30 AM EDT Office Visit Orthopaedics [address] [place] [address] Mary Lemus PA-C [address] [place] [address] 4 month f/u 02/25/2025 2:00 PM EST Office Visit Urology [address] [place] [address] Ellie Arroyo APRN.PHARMACY SALESPERSON [address] [place], [place] [phone] FOLLOW UP 03/03/2025 9:30 AM EST Office Visit Urology [address] [place] [address] Janell Hill MD [address] [place] [address] 6 month Cystoscopy 03/07/2025 10:00 AM EST Office Visit [facility] [address] [place] [address] Lab 03/14/2025 10:00 AM EST Office Visit Radiation Oncology [address] [place] [address] Sigifredo Corona MD [address] [place] [address] Lab documented as of this encounter Visit Diagnoses Not on filedocumented in this encounter Care Teams Development Technical Lead Relationship Specialty Start Date End Date Charles Hummel MD [address] [place] [address] PCP - General 05/14/01 08/24/18 Bipin Ornelas MD [address] [facility] [address] [place] [address] [place] [address] PCP - General Family Medicine 08/25/18 03/04/23 Erik Lopez II, DO [address] [place], [place] [address] [address] PCP - General Family Medicine 03/05/23 Nato Rosario MD [address] [place] [address] [place] [address] Physician Radiation Oncology 11/24/19 Erik Lopez II, DO [address] [place] [address] Referring Family Medicine 10/22/23 documented as of this encounter
--- OUTSIDE RECORDS SUMMARY | 2024-11-16 15:50 | XMS_ITS | Encounter Summary ---
Demographics Address [address] [place] [address] Home Phone Mobile Phone Phone Email Address Preferred Language ENG Marital Status Alevism Affiliation Unknown Race White Ethnic Group Not or Lati no Author Organization [facility] Address [address] [place] [address] Support Name Relationship Address Phone Isabela Agustin Spouse [address] [place] [address] Care Team Providers Care Shellfish Bed Worker Name Role Phone Bipin Ornelas MD Primary Care Provider Nato Rosario MD Unavailable [phone] John BLANDON DO, Robert James Primary Care Provid er John BLANDON DO, Robert James Unavailable [phone] Source Comments In the event this information is protected by the Federal Confidentiality of Alcohol and Drug AbusePatient Records regulations: The Federal rules restrict any use of the information to criminally investigate or prosecute any alcohol or drug abuse patient.[facility] Encounter Details Date Type Department Care Team (Late st Contact Info) Description 08/02/2020 Patient Msg Urology [address] [place] [address] Ellie Arroyo APRN.PERSONAL CAREGIVER [address] [place], [place] [id number] Injection questions Social History Tobacco Use Types [...] N ot on file 03/05/2020 Data from: https://www.neighborhoodatlas.medicine.[facility].edu/. Last address used for calculation Not on [...] 9:30 AM EDT Office Visit Orthopaedics [address] [place] [address] Mary Lemus PA-C [address] [place] [address] 4 month f/u 02/25/2025 2:00 PM EST Office Visit Urology [address] [place] [address] Ellie Arroyo APRN.PERSONAL CAREGIVER [address] [place] [address] FOLLOW UP 03/03/2025 9:30 AM EST Office Visit Urology [address] [place] [address] Janell Hill MD [address] [place] [address] 6 month Cystoscopy 03/07/2025 10:00 AM EST Office [facility] [address] [place] [address] Lab 03/14/2025 10:00 AM EST Office Visit Radiation Oncology [address] [place] [address] Sigifredo Corona MD [address] [place] [address] Lab documented as of this encounter Visit Diagnoses Not on filedocumented in this encounter Care Teams Shellfish Bed Worker Relationship Specialty Start Date End Date Bipin Ornelas MD [address] [facility] [address] [place] [address] PCP - General Family Medicine 08/25/18 03/04/23 Erik Lopez II, DO [address] [place] [address] PCP - General Family Medicine 03/05/23 Nato Rosario MD [address] [place] [address] [place] [address] Physician Radiation Oncology 11/24/19 Erik Lopez II, DO [address] [place] [address] Referring Family Medicine 10/22/23 documented as of this encounter
--- OUTSIDE RECORDS SUMMARY | 2024-11-16 15:50 | XMS_ITS | Clinical Summary ---
Demographics Address [address] [place] [address] Home Phone Mobile Phone Preferred Language en Marital Status Judaism Affiliation Unknown Race White Ethnic Group Not or Lati no Author Organization [facility] Address [address] [place] [address] Phone Care Team Providers Care Product Promoter Sales Person Name Role Phone Erik Lopez DO Primary Care Provider + Encounters Date Type Department Care Team Description 09/11/2024 Lab Requisition [facility] [address] [place] [phone] Matt Thomas MD from Last 3 Months [...] age to complete this topic Care Teams Product Promoter Sales Person Relationship Specialty Start Date End Date Erik Lopez DO [address] [place] [address] PCP - General 08/22/22
--- OUTSIDE RECORDS SUMMARY | 2024-11-16 15:50 | XMS_ITS | Encounter Summary ---
Demographics Address [address] [place] [address] Home Phone Mobile Phone Phone Email Address Preferred Language ENG Marital Status Mandaeism Affiliation Unknown Race White Ethnic Group Not or Lati no Author Organization [facility] Address [facility] [place] [address] Support Name Relationship Address Phone Isabela Agustin Spouse [address] [place] [address] Care Team Providers Care Primary Care Nurse Name Role Phone Nato Rosario MD Unavailable [phone] John BLANDON DO, Robert James Primary Care [facility] er John BLANDON DO, Robert James Unavailable [phone] Source Comments In the event this information is protected by the Federal Confidentiality of Alcohol and Drug AbusePatient Records regulations: The Federal rules restrict any use of the information to criminally investigate or prosecute any alcohol or drug abuse patient.[facility] Reason for Visit * Reason Comments Appointment Encounter Details Date Type Department Care Team (Late st Contact Info) Description 11/09/2024 Telephone Urology [address] [place] [address] Janell Hill MD [address] [place] [address] Appointment Social History Tobacco Use [...] is lower risk 6 09/05/2022 Data from: https://www.neighborhoodatlas.[facility]/. Last address used for calculation [address] [facility] 09/05/2022 Sex and Gender Information Value [...] Telephone Encounter - Jose Alejandro Worthington - 11/09/2024 4:09 PM EDT Patient called to reschedule 04/[address] Hill to 03/03. documented in this encounter Plan of Treatment Upcoming Encounters Date Type Department Care Team (Late st Contact Info) Description 12/29/2024 9:30 AM EDT Office Visit Orthopaedics [address] [place] [address] Mary Lemus PA-C [address] [place] [address] 4 month f/u 02/25/2025 2:00 PM EST Office Visit Urology [address] [place] [address] Ellie Arroyo APRN.MANAGER BEHAVIORAL [address] [place] [address] FOLLOW UP 03/03/2025 9:30 AM EST Office Visit Urology [address] [place] [address] Janell Hill MD [address] [place] [address] 6 month Cystoscopy 03/07/2025 10:00 AM EST Office Visit [facility] [address] [place] [address] Lab 03/14/2025 10:00 AM EST Office Visit Radiation Oncology [address] [place] [address] Sigifredo Corona MD [address] [place] [address] Lab documented as of this encounter Goals Goal Patient Goal Type Associated Problems Recent Progress Patient-Stated? Author Blood Pressure < 130/80 Blood Pressure 132/72( 025 3:01 PM EDT) Yuan Verdugo MD documented as of this encounter Visit Diagnoses Not on filedocumented in this encounter Care Teams Primary Care Nurse Relationship Specialty Start Date End Date Erik Lopez II, DO [address] [facility] [place] [address] PCP - General Family Medicine 03/05/23 Nato Rosario MD [address] [place] [address] [place] [address] Physician Radiation Oncology 11/24/19 Erik Lopez II, DO [address] [place] [address] Referring Family Medicine 10/22/23 documented as of this encounter
--- OUTSIDE RECORDS SUMMARY | 2024-11-16 15:50 | XMS_ITS | Encounter Summary ---
Demographics Address [address] [place] [address] Home Phone Mobile Phone Phone Email Address Preferred Language ENG Marital Status Islam Affiliation Unknown Race White Ethnic Group Not or Lati no Author Organization [facility] Address [facility] [place] [address] Support Name Relationship Address Phone Isabela Agustin Spouse [address] [place] [address] Care Team Providers Care Railcar Switchman Name Role Phone Bipin Ornelas MD Primary Care Provider Nato Rosario MD Unavailable [phone] John BLANDON DO, Robert James Primary Care Provid er John BLANDON DO, Robert James Unavailable [phone] Source Comments In the event this information is protected by the Federal Confidentiality of Alcohol and Drug AbusePatient Records regulations: The Federal rules restrict any use of the information to criminally investigate or prosecute any alcohol or drug abuse patient.[facility] Encounter Details Date Type Department Care Team (Late st Contact Info) Description 03/01/2022 Patient Msg Urology [address] [place] [address] Erik Cassidy MD [address] [place] [address] PSA Social History Tobacco Use [...] N ot on file 09/05/2021 Data from: https://www.neighborhoodatlas.medicine.[facility]/. Last address used for calculation [address] [facility] 09/05/2021 Sex and Gender Information Value [...] 9:30 AM EDT Office Visit Orthopaedics [address] [place] [address] Mary Lemus PA-C [address] [place] [address] 4 month f/u 02/25/2025 2:00 PM EST Office Visit Urology [address] [place] [address] Ellie Arroyo APRN.TIE MAN [address] [place] [address] FOLLOW UP 03/03/2025 9:30 AM EST Office Visit Urology [address] [place] [address] Janell Hill MD [address] [place] [address] 6 month Cystoscopy 03/07/2025 10:00 AM EST [facility] Visit [facility] [address] [place] [address] Lab 03/14/2025 10:00 AM EST Office Visit Radiation Oncology [address] [place] [address] Sigifredo Corona MD [address] [place] [address] Lab documented as of this encounter Visit Diagnoses Not on filedocumented in this encounter Care Teams Railcar Switchman Relationship Specialty Start Date End Date Bipin Ornelas MD [address] [place] [address] PCP - General Family Medicine 08/25/18 03/04/23 Erik Lopez II, [address] [place] [address] [place] [address] PCP - General Family Medicine 03/05/23 Nato Rosario MD [address] [place] [address] [place] [address] Physician Radiation Oncology 11/24/19 Erik Lopez II, DO [address] [place] [address] Referring Family Medicine 10/22/23 documented as of this encounter
--- OUTSIDE RECORDS SUMMARY | 2024-11-16 15:50 | XMS_ITS | Encounter Summary ---
Demographics Address [address] [place] [address] Home Phone Mobile Phone Phone Email Address Preferred Language ENG Marital Status Religion Affiliation Unknown Race White Ethnic Group Not or Lati no Author Organization [facility] Address [facility] [place] [address] Support Name Relationship Address Phone Isabela Agustin Spouse [address] 04[address] [place] [address] Care Team Providers Care Foreign Language Instructor Name Role Phone Nato Rosario MD Unavailable [phone] John BLANDON DO, Robert James Primary Care [facility] er John BLANDON DO, Robert James Unavailable [phone] Source Comments In the event this information is protected by the Federal Confidentiality of Alcohol and Drug AbusePatient Records regulations: The Federal rules restrict any use of the information to criminally investigate or prosecute any alcohol or drug abuse patient.[facility] Encounter Details Date Type Department Care Team (Late st Contact Info) Description 09/09/2024 Patient [facility] -[address] [place] [address] Jordyn Multani RPh At your next appointment, choose [facility]. Social History Tobacco Use Types [...] is lower risk 6 09/05/2022 Data from: https://www.neighborhoodatlas.[facility]/. Last address used for calculation [address] [facility] 09/05/2022 Sex and Gender Information Value [...] 9:30 AM EDT Office Visit Orthopaedics [address] [place] [address] Mary Lemus PA-C [address] [place] [address] 4 month f/u 02/25/2025 2:00 PM EST Office Visit Urology [address] [place] [address] Ellie Arroyo APRN.VTC TECHNICIAN [address] [place] [address] FOLLOW UP 03/03/2025 9:30 AM EST Office Visit Urology [address] [place] [phone] Janell Hill MD [address] [place] [address] 6 month Cystoscopy 03/07/2025 10:00 AM EST Office Visit [facility] [address] [place] [place] [address] Lab 03/14/2025 10:00 AM EST Office Visit Radiation Oncology [address] [place] [address] Sigifredo Corona MD [address] [place] [address] Lab documented as of this encounter Goals Goal Patient Goal Type Associated Problems Recent Progress Patient-Stated? Author Blood Pressure < 130/80 Blood Pressure 132/72( 025 3:01 PM EDT) Yuan Verdugo MD documented as of this encounter Visit Diagnoses Not on filedocumented in this encounter Care Teams Foreign Language Instructor Relationship Specialty Start Date End Date Erik Lopez II, DO [address] [facility] [place] [address] PCP - General Family Medicine 03/05/23 Nato Rosario MD [address] [place] [address] [place] [address] Physician Radiation Oncology 11/24/19 Erik Lopez II, DO [address] [place] [address] Referring Family Medicine 10/22/23 documented as of this encounter
--- OUTSIDE RECORDS SUMMARY | 2024-11-16 15:50 | XMS_ITS | Encounter Summary ---
Demographics Address [address] [place] [address] Home Phone Mobile Phone Phone Email Address Preferred Language ENG Marital Status Rastafarian Affiliation Unknown Race White Ethnic Group Not or Lati no Author Organization [facility] Address [facility] [place] [address] Support Name Relationship Address Phone Isabela Agustin Spouse [address] [place] [address] Care Team Providers Care Tool And Die Manager Name Role Phone Bipin Ornelas MD Primary Care Provider Nato Rosario MD Unavailable [phone] John BLANDON DO, Robert James Primary Care Provid er John BLANDON DO, Robert James Unavailable [phone] Source Comments In the event this information is protected by the Federal Confidentiality of Alcohol and Drug AbusePatient Records regulations: The Federal rules restrict any use of the information to criminally investigate or prosecute any alcohol or drug abuse patient.[facility] Encounter Details Date Type Department Care Team (Late st Contact Info) Description 10/20/2018 Patient Msg Urology [address] [place] [address] Erik Cassidy MD [address] [place] [address] PSA Social History Tobacco Use [...] 9:30 AM EDT Office Visit Orthopaedics [address] [place] [address] Mary Lemus PA-C [address] [place] [address] 4 month f/u 02/25/2025 2:00 PM EST Office Visit Urology [address] [place] [address] Ellie Arroyo APRN.GENERAL FORECASTER [address] [place] [address] FOLLOW UP 03/03/2025 9:30 AM EST Office Visit Urology [address] [place] [address] Janell Hill MD [address] [place] [address] 6 month Cystoscopy 03/07/2025 10:00 AM EST Office Visit [facility] Laboratory [address] [address] Lab 03/14/2025 10:00 AM EST Office Visit Radiation Oncology [address] [place] [address] Sigifredo Corona MD [address] [place] [address] Lab documented as of this encounter Visit Diagnoses Not on filedocumented in this encounter Care Teams Tool And Die Manager Relationship Specialty Start Date End Date Bipin Ornelas MD [address] [place] [place] [phone] PCP - General Family Medicine 08/25/18 03/04/23 Erik Lopez II, DO [address] [place] [address] PCP - General Family Medicine 03/05/23 Nato Rosario MD [address] [place] [address] Physician Radiation Oncology 11/24/19 Erik Lopez II, DO [address] [place] [address] Referring Family Medicine 10/22/23 documented as of this encounter
--- OUTSIDE RECORDS SUMMARY | 2024-11-16 15:50 | XMS_ITS | Encounter Summary ---
Demographics Address [address] [place] [address] Home Phone Mobile Phone Phone Email Address Preferred Language ENG Marital Status Uatsdin Affiliation Unknown Race White Ethnic Group Not or Lati no Author Organization [facility] Address [facility] [place] [address] Support Name Relationship Address Phone Isabela Agustin Spouse [address] [place] [address] Care Team Providers Care Wetlands Technician Name Role Phone Bipin Ornelas MD Primary Care Provider Nato Rosario MD Unavailable [phone] John BLANDON DO, Robert James Primary Care Provid er John BLANDON DO, Robert James Unavailable [phone] Source Comments In the event this information is protected by the Federal Confidentiality of Alcohol and Drug AbusePatient Records regulations: The Federal rules restrict any use of the information to criminally investigate or prosecute any alcohol or drug abuse patient.[facility] Encounter Details Date Type Department Care Team (Late st Contact Info) Description 08/30/2022 Patient Msg Urology [address] [place] [address] Erik Cassidy MD [address] [place] [address] PSA Social History Tobacco Use [...] N ot on file 2022 Data from: https://www.neighborhoodatlas.medicine.[facility]/. Last address used for calculation [address]01 [facility] 2022 Sex and Gender Information Value [...] 09/04/2018 4:07 PM Isela Greir RN * Are you blind or do [...] 9:30 AM EDT Office Visit Orthopaedics [address] [place] [address] Mary Lemus PA-C [address] [place] [address] 4 month f/u 02/25/2025 2:00 PM EST Office Visit Urology [address] [place] [address] Ellie Arroyo APRN.BRICK BURNER HEAD [address] [place] [address] FOLLOW UP 03/03/2025 9:30 AM EST Office Visit Urology [address] [place] [address] Janell Hill MD [address] [place] [address] 6 month Cystoscopy 03/07/2025 10:00 AM EST Office Visit [facility] Laboratory [address] [place] [address] Lab 03/14/2025 10:00 AM EST Office Visit Radiation Oncology [address] [place] [address] Sigifredo Corona MD [address] [place] [address] Lab documented as of this encounter Visit Diagnoses Not on filedocumented in this encounter Care Teams Wetlands Technician Relationship Specialty Start Date End Date Bipin Ornelas MD [address] [place] [address] PCP - General Family Medicine 08/25/18 03/04/23 Erik Lopez II, [address] [place] [address] [place] [address] PCP - General Family Medicine 03/05/23 Nato Rosario MD [address] [place] [address] [place] [address] Physician Radiation Oncology 11/24/19 Erik Lopez II, DO [address] [place] [address] Referring Family Medicine 10/22/23 documented as of this encounter
--- OUTSIDE RECORDS SUMMARY | 2024-11-16 15:50 | XMS_ITS | Encounter Summary ---
Demographics Address [address] [place] [address] Home Phone Mobile Phone Phone Email Address Preferred Language ENG Marital Status Buddhism Affiliation Unknown Race White Ethnic Group Not or Lati no Author Organization [facility] Address [address] [place], [place] [id number] Support Name Relationship Address Phone Isabela Agustin Spouse [address] [place] [address] Care Team Providers Care Survey Technician Name Role Phone Bipin Ornelas MD Primary Care Provider Nato Rosario MD Unavailable [phone] John BLANDON DO, Robert James Primary Care Provid er John BLANDON DO, Robert James Unavailable [phone] Source Comments In the event this information is protected by the Federal Confidentiality of Alcohol and Drug AbusePatient Records regulations: The Federal rules restrict any use of the information to criminally investigate or prosecute any alcohol or drug abuse patient.[facility] Encounter Details Date Type Department Care Team (Late st Contact Info) Description 09/09/2022 Patient Msg Cardiology [address] [place] [address] [place] [address] [place] [address] Appointment Cancellation Request Social History [...] is lower risk 6 09/05/2022 Data from: https://www.neighborhoodatlas.medicine.[facility].edu/. Last address used for calculation [address]01 [facility] 09/05/2022 Sex and Gender Information [...] 9:30 AM EDT Office Visit Orthopaedics [address] [place] [address] Mary Lemus PA-C [address] [place] [address] 4 month f/u 02/25/2025 2:00 PM EST Office Visit Urology [address] [place] [address] Ellie Arroyo APRN.HIV COUNSELOR [address] [place] [address] FOLLOW UP 03/03/2025 9:30 AM EST Office Visit Urology [address] [place] [phone] Janell Hill MD [address] [place] [id number] 6 month Cystoscopy 03/07/2025 10:00 AM EST Office Visit [facility] Laboratory [address] [place] [address] Lab 03/14/2025 10:00 AM EST Office Visit Radiation Oncology [address] [place] [address] Sigifredo Corona MD [address] [place] [address] Lab documented as of this encounter Visit Diagnoses Not on filedocumented in this encounter Care Teams Survey Technician Relationship Specialty Start Date End Date Bipin Ornelas MD [address] [place] [address] PCP - General Family Medicine 08/25/18 03/04/23 Erik Lopez II, DO [address] [place] [address] [address] [place] [address] PCP - General Family Medicine 03/05/23 Nato Rosario MD [address] [place] [address] [place] [address] Physician Radiation Oncology 11/24/19 Erik Lopez II, DO [address] [place] [address] Referring Family Medicine 10/22/23 documented as of this encounter
--- OUTSIDE RECORDS SUMMARY | 2024-11-16 15:50 | XMS_ITS | Clinical Summary ---
Demographics Address [address] [place] [address] Mobile Phone Home Phone Email Address Preferred Language Pashto Marital Status Jehovah'S Witness Affiliation Unknown Race White Ethnic Group Not or Lati no Author Organization [facility] Address [address] [place] [address] Support Name Relationship Address Phone Isabela Agustin Personal Relationship [address] [place] [address] Care Team Providers Care Hard Rock Miner Blasting Name Role Phone OvertonNila DO Primary Care Provider [phone] Allergies Active Allergy Reactions Criticality Noted Date [...] Phone Billing Address Personal/Family Self 1950 [address] [place] [address] MEDICARE Care Teams Hard Rock Miner Blasting Relationship Specialty Start Date End Date Nila Overton DO PCP - General Family Medicine 12/29/15
--- OUTSIDE RECORDS SUMMARY | 2024-11-16 15:50 | XMS_ITS | Encounter Summary ---
Demographics Address [address] [place] [address] Home Phone Mobile Phone Phone Email Address Preferred Language ENG Marital Status Caodaism Affiliation Unknown Race White Ethnic Group Not or Lati no Author Organization [facility] Address [facility] [place] [address] Support Name Relationship Address Phone Isabela Agustin Spouse [address] [place] [address] Care Team Providers Care Iron Assorter Name Role Phone Bipin Ornelas MD Primary Care Provider Nato Rosario MD Unavailable [phone] John BLANDON DO, Robert James Primary Care Provid er John BLANDON DO, Robert James Unavailable [phone] Source Comments In the event this information is protected by the Federal Confidentiality of Alcohol and Drug AbusePatient Records regulations: The Federal rules restrict any use of the information to criminally investigate or prosecute any alcohol or drug abuse patient.[facility] Encounter Details Date Type Department Care Team (Late st Contact Info) Description 01/21/2019 Patient Msg Urology [address] [place] [address] Erik Cassidy MD [address] [place] [address] PSA Social History Tobacco Use [...] 9:30 AM EDT Office Visit Orthopaedics [address] [place] [address] Mary Lemus PA-C [address] [place] [address] 4 month f/u 02/25/2025 2:00 PM EST Office Visit Urology [address] [place] [address] Ellie Arroyo APRN.GEODETIC SURVEYOR TECHNOLOGIST [address] [place] [address] FOLLOW UP 03/03/2025 9:30 AM EST Office Visit Urology [address] [place] [address] Janell Hill MD [address] [place] [address] 6 month Cystoscopy 03/07/2025 10:00 AM EST Office Visit [facility] [address] [place] [address] Lab 03/14/2025 10:00 AM EST Office Visit Radiation Oncology [address] [place] [address] Sigifredo Corona MD [address] [place] [address] Lab documented as of this encounter Visit Diagnoses Not on filedocumented in this encounter Care Teams Iron Assorter Relationship Specialty Start Date End Date Bipin Ornelas MD [address] [place] [id number] PCP - General Family Medicine 08/25/18 03/04/23 Erik Lopez II, DO [address] [place] [address] [place] [address] PCP - General Family Medicine 03/05/23 Nato Rosario MD [address] [place] [address] Physician Radiation Oncology 11/24/19 Erik Lopez II, DO [address] [place] [address] Referring Family Medicine 10/22/23 documented as of this encounter
--- OUTSIDE RECORDS SUMMARY | 2024-11-16 15:50 | XMS_ITS | Encounter Summary ---
Demographics Address [address] [place] [address] Home Phone Mobile Phone Phone Email Address Preferred Language ENG Marital Status Muslim Affiliation Unknown Race White Ethnic Group Not or Lati no Author Organization [facility] Address [facility] [place] [address] Support Name Relationship Address Phone Isabela Agustin Spouse 7 [address] [place] [address] Care Team Providers Care Radar Mechanic Name Role Phone Nato Rosario MD Unavailable [phone] John BLANDON DO, Robert James Primary Care Provid er John BLANDON DO, Robert James Unavailable [phone] Source Comments In the event this information is protected by the Federal Confidentiality of Alcohol and Drug AbusePatient Records regulations: The Federal rules restrict any use of the information to criminally investigate or prosecute any alcohol or drug abuse patient.[facility] Encounter Details Date Type Department Care Team (Late st Contact Info) Description 10/02/2024 Results Follow-Up Urology [address] [place] [address] Erik Cassidy MD [address] [place] [address] Social History Tobacco Use Types [...] is lower risk 6 09/05/2022 Data from: https://www.neighborhoodatlas.[facility]/. Last address used for calculation [address]01 [facility] 09/05/2022 Sex and Gender Information Value [...] 9:30 AM EDT Office Visit Orthopaedics [address] [place] [address] Mary Lemus PA-C [address] [place] [address] 4 month f/u 02/25/2025 2:00 PM EST Office Visit Urology [address] [place] [address] Ellie Arroyo, KEMAL.MASONRY TEACHER [address] [place] [address] FOLLOW UP 03/03/2025 9:30 AM EST Office Visit Urology [address] [place] [address] Janell Hill MD [address] [place] [address] 6 month Cystoscopy 03/07/2025 10:00 AM EST [facility] Visit [facility] [address] [place] [address] Lab 03/14/2025 10:00 AM EST Office Visit Radiation Oncology [address] [place] [address] Sigifredo Corona MD [address] [place] [address] Lab documented as of this encounter Goals Goal Patient Goal Type Associated Problems Recent Progress Patient-Stated? Author Blood Pressure < 130/80 Blood Pressure 132/72( 025 3:01 PM EDT) No Yuan Sloan MD documented as of this encounter Visit Diagnoses Not on filedocumented in this encounter Care Teams Radar Mechanic Relationship Specialty Start Date End Date Erik Lopez II, DO [address] [place] [address] PCP - General Family Medicine 03/05/23 Nato Rosario MD [address] [place] [address] [place] [address] Physician Radiation Oncology 11/24/19 Erik Lopez II, DO [address] [place] [address] Referring Family Medicine 10/22/23 documented as of this encounter
--- OUTSIDE RECORDS SUMMARY | 2024-11-16 15:50 | XMS_ITS | Encounter Summary ---
Demographics Address [address] [place] [address] Home Phone Mobile Phone Preferred Language en Marital Status Confucianism Affiliation Unknown Race White Ethnic Group Not or Lati no Author Organization [facility] Address [address] [place] [address] Phone Care Team Providers Care Director Of Procurement Name Role Phone Erik Lopez DO Primary Care Provider + Encounter Details Date Type Department Care Team (Late st Contact Info) Description 09/11/2024 Lab Requisition [facility] [address] [place] [id number] Matt Thomas MD [address] [place] [facility] [address] [place] [address] Social History Tobacco Use Types Packs/Day Years [...] on filedocumented in this encounter Care Teams Director Of Procurement Relationship Specialty Start Date End Date Erik Lopez DO [address] [place] [address] [place] [address] PCP - General 08/22/22 documented as of this encounter
--- OUTSIDE RECORDS SUMMARY | 2024-11-16 15:50 | XMS_ITS | Encounter Summary ---
Demographics Address [address] [place] [address] Home Phone Mobile Phone Phone Email Address Preferred Language ENG Marital Status Hinduism Affiliation Unknown Race White Ethnic Group Not or Lati no Author Organization [facility] Address [facility] [place] [address] Support Name Relationship Address Phone Isabela Agustin Spouse 7 04[address] [place] [address] Care Team Providers Care Sterile Products Processor Name Role Phone Bipin Ornelas MD Primary Care Provider Nato Rosario MD Unavailable [phone] John BLANDON DO, Robert James Primary Care Provid er John BLANDON DO, Robert James Unavailable [phone] Source Comments In the event this information is protected by the Federal Confidentiality of Alcohol and Drug AbusePatient Records regulations: The Federal rules restrict any use of the information to criminally investigate or prosecute any alcohol or drug abuse patient.[facility] Encounter Details Date Type Department Care Team (Late st Contact Info) Description 03/01/2022 Patient Msg Urology [address] [place] [address] Erik Cassidy MD [address] [place] [address] PSA Social History Tobacco Use [...] N ot on file 09/05/2021 Data from: https://www.neighborhoodatlas.medicine.[facility]/. Last address used for calculation [address]01 [facility] 09/05/2021 Sex and Gender Information Value [...] 9:30 AM EDT Office Visit Orthopaedics [address] [place] [address] Mary Lemus PA-C [address] [place] [address] 4 month f/u 02/25/2025 2:00 PM EST Office Visit Urology [address] [place] [address] Ellie Arroyo APRN.WASTEWATER ENGINEER [address] [place] [address] FOLLOW UP 03/03/2025 9:30 AM EST Office Visit Urology [address] [place] [address] Janell Hill MD [address] [place] [address] 6 month Cystoscopy 03/07/2025 10:00 AM EST Office Visit [facility] [address] [place] [address] Lab 03/14/2025 10:00 AM EST Office Visit Radiation Oncology [address] [place] [address] Sigifredo Corona MD [address] [place] [address] Lab documented as of this encounter Visit Diagnoses Not on filedocumented in this encounter Care Teams Sterile Products Processor Relationship Specialty Start Date End Date Bipin Ornelas MD [address] [place] [address] PCP - General Family Medicine 08/25/18 03/04/23 Erik Lopez II, [address] [place] [address] PCP - General Family Medicine 03/05/23 Nato Rosario MD [address] [place] [address] [place] [address] Physician Radiation Oncology 11/24/19 Erik Lopez II, DO [address] [place] [address] Referring Family Medicine 10/22/23 documented as of this encounter
--- OUTSIDE RECORDS SUMMARY | 2024-11-16 15:50 | XMS_ITS | Clinical Summary ---
Author Organization [facility] Address [address] [place] [address] Care Team Providers Care Crossing Tender Name Role Phone Erik Lopez MD Primary Care Provider [phone] Allergies Active Allergy Reactions Criticality Noted Date [...] Description 10/05/2024 1:45 PM EDT Office Visit [facility] [address] [place] [facility] [place] [address] Bryan Landeros MD PVC (premature ventricular contraction) (Primary Dx) 10/05/2024 Orders Only [facility] [address] [place] [facility] [place] [address] Cheryl Cai MA Abnormal EKG (Primary Dx) [...] Description 11/30/2024 11:45 AM EDT Office Visit [facility] [address] [place] [address] Bryan Landeros MD [address] [place] [address] Health Maintenance Due Date Last Done Comments [...] Months Insurance MEDICARE GENERIC [employer] Care Teams Crossing Tender Relationship Specialty Start Date End Date Erik Lopez MD [address] [place] [address] PCP - General Family Medicine 10/05/24
--- OUTSIDE RECORDS SUMMARY | 2024-11-16 15:50 | XMS_ITS | Encounter Summary ---
Demographics Address [address] [place] [address] Home Phone Mobile Phone Phone Email Address Preferred Language ENG Marital Status Church Affiliation Unknown Race White Ethnic Group Not or Lati no Author Organization [facility] Address [address] [place] [address] Support Name Relationship Address Phone Isabela Agustin Spouse [address] [place] [address] Care Team Providers Care Medical Dir Name Role Phone Nato Rosario MD Unavailable [phone] John BLANDON DO, Robert James Primary Care Provid er John BLANDON DO, Robert James Unavailable [phone] Source Comments In the event this information is protected by the Federal Confidentiality of Alcohol and Drug AbusePatient Records regulations: The Federal rules restrict any use of the information to criminally investigate or prosecute any alcohol or drug abuse patient.[facility] Encounter Details Date Type Department Care Team (Late st Contact Info) Description 09/07/2024 Patient Msg Cardiology [address] [place] [address] Alana Dumont APRN.ASSISTANT ATHLETIC TRAINER [address] [place] [address] Appointment Cancellation Request Social History [...] is lower risk 6 09/05/2022 Data from: https://www.neighborhoodatlas.medicine.[facility].edu/. Last address used for calculation [address]01 [facility] 09/05/2022 Sex and Gender Information Value [...] 9:30 AM EDT Office Visit Orthopaedics [address] [place] [address] Mary Lemus PA-C [address] [place] [address] 4 month f/u 02/25/2025 2:00 PM EST Office Visit Urology [address] [place] [address] Ellie Arroyo APRN.ASSISTANT ATHLETIC TRAINER [address] [place] [address] FOLLOW UP 03/03/2025 9:30 AM EST Office Visit Urology [address] [place] [address] Janell Hill MD [address] [place], [place] [address] 6 month Cystoscopy 03/07/2025 10:00 AM EST Office Visit [facility] Laboratory [address] [place] [address] [place] [address] Lab 03/14/2025 10:00 AM EST Office Visit Radiation Oncology [address] [place] [address] Sigifredo Corona MD [address] [place] [address] Lab documented as of this encounter Goals Goal Patient Goal Type Associated Problems Recent Progress Patient-Stated? Author Blood Pressure < 130/80 Blood Pressure 132/72( 025 3:01 PM EDT) Yuan Verdugo MD documented as of this encounter Visit Diagnoses Not on filedocumented in this encounter Care Teams Medical Dir Relationship Specialty Start Date End Date Erik Lopez II, [address] [facility] [facility] [place] [address] PCP - General Family Medicine 03/05/23 Nato Rosario MD [address] [place] [address] [place] [address] Physician Radiation Oncology 11/24/19 Erik Lopez II, DO [address] [place] [address] Referring Family Medicine 10/22/23 documented as of this encounter
--- OUTSIDE RECORDS SUMMARY | 2024-11-16 15:50 | XMS_ITS | Encounter Summary ---
Demographics Address [address] [place] [address] Home Phone Mobile Phone Phone Email Address Preferred Language ENG Marital Status Restorationism Affiliation Unknown Race White Ethnic Group Not or Lati no Author Organization [facility] Address [address] [place] [address] Support Name Relationship Address Phone Isabela Agustin Spouse [address] [place] [address] Care Team Providers Care Raiser Helper Name Role Phone Nato Rosario MD Unavailable [phone] John BLANDON DO, Robert James Primary Care Provid er John BLANDON DO, Robert James Unavailable [phone] Source Comments In the event this information is protected by the Federal Confidentiality of Alcohol and Drug AbusePatient Records regulations: The Federal rules restrict any use of the information to criminally investigate or prosecute any alcohol or drug abuse patient.[facility] Encounter Details Date Type Department Care Team (Late st Contact Info) Description 09/06/2024 Patient Msg Cardiology [address] [facility] [place] [address] Alana Dumont APRN.ELECTRICAL PLUMBING SUPERVISOR [address] [place] [address] Appointment Cancellation Request Social History [...] is lower risk 6 09/05/2022 Data from: https://www.neighborhoodatlas.medicine.[facility].edu/. Last address used for calculation [address]01 [facility] 09/05/2022 Sex and Gender Information Value [...] 9:30 AM EDT Office Visit Orthopaedics [address] [place] [address] Mary Lemus PA-C [address] [place] [address] 4 month f/u 02/25/2025 2:00 PM EST Office Visit Urology [address] [place] [address] Ellie Arroyo APRN.ELECTRICAL PLUMBING SUPERVISOR [address] [place] [address] FOLLOW UP 03/03/2025 9:30 AM EST Office Visit Urology [address] [place] [address] Janell Hill MD [address] [place], [place] [address] 6 month Cystoscopy 03/07/2025 10:00 AM EST Office Visit [facility] [address] [place] [address] [place] [address] Lab 03/14/2025 10:00 AM EST Office Visit Radiation Oncology [address] [facility] [place] [address] Sigifredo Corona MD [address] [facility] [place] [address] Lab documented as of this encounter Goals Goal Patient Goal Type Associated Problems Recent Progress Patient-Stated? Author Blood Pressure < 130/80 Blood Pressure 132/72( 025 3:01 PM EDT) Yuan Verdugo MD documented as of this encounter Visit Diagnoses Not on filedocumented in this encounter Care Teams Raiser Helper Relationship Specialty Start Date End Date Erik Lopez II, [address] [facility] [place] [address] PCP - General Family Medicine 03/05/23 Nato Rosario MD [address] [place] [address] [place] [address] Physician Radiation Oncology 11/24/19 Erik Lopez II, DO [address] [place] [address] Referring Family Medicine 10/22/23 documented as of this encounter
--- OUTSIDE RECORDS SUMMARY | 2024-11-16 15:50 | XMS_ITS | Clinical Summary ---
Demographics Address [address] [place] [address] Mobile Phone Home Phone Email Address Preferred Language en Marital Status Confucianism Affiliation Unknown Race White Ethnic Group Unknown Author Organization [facility] Address [address] [place] [address] Care Team Providers Care Prism Inspector Name Role Phone Unavailable Primary Care Provider [...] Dermatology [address] [place] [address] Chantel De Souza MD Other seborrheic dermatitis (Primary Dx); Seborrheic keratosis; Lentigines; Sebaceous hyperplasia of face; Rash and other nonspecific skin eruption 08/19/2024 Bamboo flowsheet [facility] [address] [place] [address] Chantel De Souza MD 08/19/2024 [...] EDT Office Visit [facility] [address] [place] [address] Slade Arechiga, DPM FACFAS [address] [place] [address] 09/08/2025 11:20 AM EDT Office Visit [facility] [address] [place] [address] Chantel De Souza MD [address] [facility] [address] [place] [address] Health Maintenance Due Date Last [...] Billing Address Personal/Family Self 1950 [address] [place] [address] MEDICARE [employer]
--- OUTSIDE RECORDS SUMMARY | 2024-11-16 15:50 | XMS_ITS | Encounter Summary ---
Demographics Address [address] [place] [address] Home Phone Mobile Phone Phone Email Address Preferred Language ENG Marital Status Voodoo Affiliation Unknown Race White Ethnic Group Not or Lati no Author Organization [facility] Address [address] [place] [address] Support Name Relationship Address Phone Isabela Agustin Spouse [address] [place] [address] Care Team Providers Care Floor Coverings Salesperson Name Role Phone Nato Rosario MD Unavailable [phone] John BLANDON DO, Robert James Primary Care [facility] er John BLANDON DO, Robert James Unavailable [phone] Source Comments In the event this information is protected by the Federal Confidentiality of Alcohol and Drug AbusePatient Records regulations: The Federal rules restrict any use of the information to criminally investigate or prosecute any alcohol or drug abuse patient.[facility] Encounter Details Date Type Department Care Team (Late st Contact Info) Description 09/18/2023 Get Medical Advice Urology [address] [place], [place] [phone] Erika Moody MD [address] [place] [address] Romeo jones outpatient surgery Social History Tobacco [...] is lower risk 6 09/05/2022 Data from: https://www.neighborhoodatlas.[facility].edu/. Last address used for calculation [address]01 [facility] 09/05/2022 Sex and Gender Information Value [...] 9:30 AM EDT Office Visit Orthopaedics [address] [place] [address] Mary Lemus PA-C [address] [place] [address] 4 month f/u 02/25/2025 2:00 PM EST Office Visit Urology [address] [place] [address] Ellie Arroyo APRN.SHOE LASTER [address] [place] [address] FOLLOW UP 03/03/2025 9:30 AM EST Office Visit Urology [address] [place] [address] Janell Hill MD [address] [place], [place] [address] 6 month Cystoscopy 03/07/2025 10:00 AM EST Office Visit [facility] [address] [place] [address] Lab 03/14/2025 10:00 AM EST Office Visit Radiation Oncology [address] [place] [address] Sigifredo Corona MD [address] [place] [address] Lab documented as of this encounter Goals Goal Patient Goal Type Associated Problems Recent Progress Patient-Stated? Author Blood Pressure < 130/80 Blood Pressure 132/72( 025 3:01 PM EDT) Yuan Verdugo MD documented as of this encounter Visit Diagnoses Not on filedocumented in this encounter Care Teams Floor Coverings Salesperson Relationship Specialty Start Date End Date Erik Lopez II, DO [address] [place] [address] PCP - General Family Medicine 03/05/23 Nato Rosario MD [address] [place] [address] [place] [address] Physician Radiation Oncology 11/24/19 Erik Lopez II, DO [address] [place] [address] Referring Family Medicine 10/22/23 documented as of this encounter
--- OUTSIDE RECORDS SUMMARY | 2024-11-16 15:50 | XMS_ITS | Encounter Summary ---
Demographics Address [address] [place] [address] Home Phone Mobile Phone Phone Email Address Preferred Language ENG Marital Status Latter Day Affiliation Unknown Race White Ethnic Group Not or Lati no Author Organization [facility] Address [address] [place] [address] Support Name Relationship Address Phone Isabela Agustin Spouse [address] [place] [address] Care Team Providers Care Petroleum Engineer Name Role Phone Nato Rosario MD Unavailable [phone] John BLANDON DO, Robert James Primary Care [facility] er John BLANDON DO, Robert James Unavailable [phone] Source Comments In the event this information is protected by the Federal Confidentiality of Alcohol and Drug AbusePatient Records regulations: The Federal rules restrict any use of the information to criminally investigate or prosecute any alcohol or drug abuse patient.[facility] Encounter Details Date Type Department Care Team (Late st Contact Info) Description 08/08/2023 Patient Msg Pre Anesthesia [address] [place] [address] Provider, [facility] Appointment Social [...] is lower risk 6 09/05/2022 Data from: https://www.neighborhoodatlas.[facility]/. Last address used for calculation 7 [address]01 [facility] 09/05/2022 Sex and Gender Information Value [...] 9:30 AM EDT Office Visit Orthopaedics [address] [place] [address] Mary Lemus PA-C [address] [place] [address] 4 month f/u 02/25/2025 2:00 PM EST Office Visit Urology [address] [place] [address] Ellie Arroyo APRN.WELT SOLE LAYER [address] [place] [address] FOLLOW UP 03/03/2025 9:30 AM EST Office Visit Urology [address] [place] [address] Janell Hill MD [address] [place] [address] 6 month Cystoscopy 03/07/2025 10:00 AM EST Office Visit [facility] [address] [place] [address] Lab 03/14/2025 10:00 AM EST Office Visit Radiation Oncology [address] [facility] [place] [place] [address] Sigifredo Corona MD [address] [place] [address] Lab documented as of this encounter Visit Diagnoses Not on filedocumented in this encounter Care Teams Petroleum Engineer Relationship Specialty Start Date End Date Erik Lopez II, DO [address] [facility] [address] [place] [address] [place] [address] PCP - General Family Medicine 03/05/23 Nato Rosario MD [address] [place] [address] Physician Radiation Oncology 11/24/19 Erik Lopez II, DO [address] [place] [address] Referring Family Medicine 10/22/23 documented as of this encounter
--- OUTSIDE RECORDS SUMMARY | 2024-11-16 15:50 | XMS_ITS | Encounter Summary ---
Demographics Address [address] [place] [address] Home Phone Mobile Phone Phone Email Address Preferred Language ENG Marital Status Catholic Affiliation Unknown Race White Ethnic Group Not or Lati no Author Organization [facility] Address [facility] [place] [address] Support Name Relationship Address Phone Isabela Agustin Spouse 7 [address] [place] [address] Care Team Providers Care Fingerer Name Role Phone Bipin Ornelas MD Primary Care Provider Nato Rosario MD Unavailable [phone] John BLANDON DO, Robert James Primary Care Provid er John BLANDON DO, Robert James Unavailable [phone] Source Comments In the event this information is protected by the Federal Confidentiality of Alcohol and Drug AbusePatient Records regulations: The Federal rules restrict any use of the information to criminally investigate or prosecute any alcohol or drug abuse patient.[facility] Encounter Details Date Type Department Care Team (Late st Contact Info) Description 11/11/2019 Patient Msg Urology [address] [place] [address] Erik Cassidy MD [address] [place] [address] PSA Social History Tobacco Use [...] 9:30 AM EDT Office Visit Orthopaedics [address] [place] [address] Mary Lemus PA-C [address] [place] [address] 4 month f/u 02/25/2025 2:00 PM EST Office Visit Urology [address] [place] [address] Ellie Arroyo APRN.OBSTETRICS SCRUB NURSE [address] [place] [address] FOLLOW UP 03/03/2025 9:30 AM EST Office Visit Urology [address] [place] [address] Janell Hill MD [address] [place], [place] [address] 6 month Cystoscopy 03/07/2025 10:00 AM EST Office Visit [facility] [address] [place] [address] Lab 03/14/2025 10:00 AM EST Office Visit Radiation Oncology [address] [place] [address] Sigifredo Corona MD [address] [place] [address] Lab documented as of this encounter Visit Diagnoses Not on filedocumented in this encounter Care Teams Fingerer Relationship Specialty Start Date End Date Bipin Ornelas MD [address] [place] [address] PCP - General Family Medicine 08/25/18 03/04/23 Erik Lopez II, DO [address] [place] [address] PCP - General Family Medicine 03/05/23 Nato Rosario MD [address] [place] [address] Physician Radiation Oncology 11/24/19 Erik Lopez II, DO [address] [place] [address] Referring Family Medicine 10/22/23 documented as of this encounter
--- OUTSIDE RECORDS SUMMARY | 2024-11-16 15:51 | XMS_ITS | Encounter Summary ---
Demographics Address [address] [place] [address] Home Phone Mobile Phone Phone Email Address Preferred Language ENG Marital Status Anglican Affiliation Unknown Race White Ethnic Group Not or Lati no Author Organization [facility] Address [facility] [place] [address] Support Name Relationship Address Phone Isabela Agustin Spouse 7 04[address] [place] [address] Care Team Providers Care Preparation Supervisor Freezing Name Role Phone Bipin Ornelas MD Primary Care Provider Nato Rosario MD Unavailable [phone] John BLANDON DO, Robert James Primary Care Provid er John BLANDON DO, Robert James Unavailable [phone] Source Comments In the event this information is protected by the Federal Confidentiality of Alcohol and Drug AbusePatient Records regulations: The Federal rules restrict any use of the information to criminally investigate or prosecute any alcohol or drug abuse patient.[facility] Encounter Details Date Type Department Care Team (Late st Contact Info) Description 09/04/2021 Patient Msg Urology [address] [place] [address] Erik Cassidy MD [address] [place] [address] PSA Social History Tobacco Use [...] N ot on file 09/05/2021 Data from: https://www.neighborhoodatlas.medicine.[facility].edu/. Last address used for calculation [address]01 [facility] 09/05/2021 Sex and Gender Information Value Date [...] Author No 09/04/2018 4:07 PM EDT Isela Arteaga, RN documented as of this encounter Mental [...] 9:30 AM EDT Office Visit Orthopaedics [address] [place] [address] Mary Lemus PA-C [address] [place] [address] 4 month f/u 02/25/2025 2:00 PM EST Office Visit Urology [address] [place] [address] Ellie Arroyo APRN.PALLET ASSEMBLER [address] [place] [address] FOLLOW UP 03/03/2025 9:30 AM EST Office Visit Urology [address] [place] [address] Janell Hill MD [address] [place] [address] 6 month Cystoscopy 03/07/2025 10:00 AM EST Office Visit [facility] Laboratory [address] [facility] [facility] [place] [address] Lab 03/14/2025 10:00 AM EST Office Visit Radiation Oncology [address] [facility] [place] [address] Sigifredo Corona MD [address] [facility] [place] [address] Lab documented as of this encounter Visit Diagnoses Not on filedocumented in this encounter Care Teams Preparation Supervisor Freezing Relationship Specialty Start Date End Date Bipin Ornelas MD [address] [place], [place] [address] [facility] [address] [place] [address] PCP - General Family Medicine 08/25/18 03/04/23 Erik Lopez II, DO [address] [place], [place] [address] [address] PCP - General Family Medicine 03/05/23 Nato Rosario MD [address] [place] [address] [place] [address] Physician Radiation Oncology 11/24/19 Erik Lopez II, DO [address] [address] [place] [address] Referring Family Medicine 10/22/23 documented as of this encounter
--- OUTSIDE RECORDS SUMMARY | 2024-11-16 15:51 | XMS_ITS | Encounter Summary ---
Demographics Address [address] [place] [address] Mobile Phone Home Phone Email Address Preferred Language Micronesian Marital Status Presybeterian Affiliation Unknown Race White Ethnic Group Not or Lati no Author Organization [facility] Address [address] [facility] [place] [address] Support Name Relationship Address Phone Isabela Agustin Personal Relationship [address] [place] [address] Care Team Providers Care Press Set Up Person Name Role Phone Nila Overton DO Primary Care Provider [phone] Reason for Visit * Reason Comments Medication Refill Encounter Details Date Type Department Care Team (Late st Contact Info) Description 01/26/2018 [facility] Pulmonology [address] [place], [place] [id number] Kayce Abad PA-C Medication Refill Social History [...] exacerbation documented in this encounter Care Teams Press Set Up Person Relationship Specialty Start Date End Date Nila Overton, PCP - General Family Medicine 12/29/15 documented as of this encounter
--- OUTSIDE RECORDS SUMMARY | 2024-11-16 15:51 | XMS_ITS | Clinical Summary ---
Demographics Address [address] [place] [address] Home Phone Mobile Phone Phone Email Address Preferred Language ENG Marital Status Christianity Affiliation Unknown Race White Ethnic Group Not or Lati no Author Organization [facility] Address [address] [place], [place] [address] Support Name Relationship Address Phone Isabela Agustin Spouse 7 [address] [place] [address] Care Team Providers Care Uniform Room Attendant Name Role Phone Nato Rosario MD Unavailable [phone] John BLANDON DO, Robert James Primary Care Provid er John BLANDON DO, Robert James Unavailable [phone] Allergies Active Allergy Reactions Criticality Noted Date [...] rare (<1.0%). Isolated VEs were frequent (7.9%, 65504), VE Couplets were rare (<1.0%, 3272), and [...] 3:59 PM EDT): Assessment: Lipitor Patient is Rastafarian Overview (08/25/2018): Refuses blood products Assessment & Plan (08/25/2018 4:04 PM EDT): Assessment: States he refuses blood products Encounters Date Type Department Care Team Description 11/09/2024 Telephone Urology [address] [place] [id number] Janell Hill MD Appointment 10/29/2024 Telephone Urology [address] [place] [id number] Erik Cassidy MD Appointment 10/02/2024 Results Follow-Up Urology [address] [place] [id number] Erik Cassidy MD 09/29/2024 3:00 PM EDT Office Visit Urology [address] [place] [address] Erik Cassidy MD Screening for genitourinary condition (Primary Dx); History of prostate cancer; Radiation cystitis 09/28/2024 Travel 09/09/2024 Patient [facility] HB-[address] [place] [address] Jordyn Multani RPh At your next appointment, choose [facility]. 09/07/2024 Patient [facility] [address] [place] [address] Alana Dumont, COUNTY BAILIFF.ELECTRIC DETECTOR OPERATOR Appointment Cancellation Request 09/06/2024 Patient [facility] [address] [place] [address] Alana Dumont, COUNTY BAILIFF.ELECTRIC DETECTOR OPERATOR Appointment Cancellation Request from Last 3 Months Immunizations Immunization Administration [...] is lower risk 6 09/05/2022 Data from: https://www.neighborhoodatlas.medicine.[facility].edu/. Last address used for calculation 7 [address]01 [facility] 09/05/2022 Sex and Gender Information Value [...] 9:30 AM EDT Office Visit Orthopaedics [address] [place] [address] Mary Lemus PA-C [address] [place] [address] 4 month f/u 02/25/2025 2:00 PM EST Office Visit Urology [address] [place] [address] Ellie Arroyo APRN.ELECTRIC DETECTOR OPERATOR [address] [place] [address] FOLLOW UP 03/03/2025 9:30 AM EST Office Visit Urology [address] [place] [address] Janell Hill MD [address] [place] [address] 6 month Cystoscopy 03/07/2025 10:00 AM EST Office Visit [facility] [address] [address] Lab 03/14/2025 10:00 AM EST Office Visit Radiation Oncology [address] [place] [address] [place] [address] Sigifredo Corona MD [address] [place] [address] Lab Health Maintenance Due Date Last Done Comments [...] Verdugo MD Medical Devices Implanted Type Area Armor Reconnaissance Vehicle Driver Device Identifier Shelf Expiration Date Model / Serial / Lot Imp Resvr Titan Cl 125cc Implanted:Qty: 1 on 09/18/2023 by Erika Moody MD at [facility] Accessories N/A: Penis [employer] 07/01/2028 [id number] / / [id number] Description:COMBINED COST ON C1813 HCPCS IMPLANTS Titan Narrow Infrapubic Zero Angle 16cm Implanted:Qty: 1 on 09/18/2023 by Erika Moody MD at [facility] Accessories N/A: Penis [employer] 05/12/2028 [id number] / / [id number] Description:COMBINED COST ON C1813 HCPCS IMPLANTS THIS IMPLANT 9628.00 + 2114.00 + 666.00 = 12,408.00 Kit Ext Nrw Bse Rear Tip Implanted:Qty: 1 on 09/18/2023 by Erika Moody MD at [facility] Accessories N/A: Penis [employer] 06/07/2028 [id number] / / [id number] Titan Assembly Kit [id number] Implanted:Qty: 1 on 09/18/2023 at [facility] Implant [employer] [id number] / / Description:COMBINED COST ON C1813 HCPCS IMPLANTS Procedures Procedure Name Priority Date/Time Associated Diagnosis Comments PSA/PROSTSPECAG DIAG Routine 09/29/2024 3:45 PM EDT History of prostate cancer UA DIP, URINE (POC) Routine 09/29/2024 3 :05 PM EDT COMPREHENSIVE METABOLIC PANEL STAT 01/16/2024 3:51 PM EDT from Last 3 Months or Most Recently Relevant to Health Maintenance Results * PROSTATE-SPECIFIC ANTIGEN DIAGNOSTIC (09/29/2024 3:45 PM EDT) Pathologist [facility] PSA <0.02 <2.60 ng/mL 09/30/2024 4:35 PM EDT [facility] Comment:Total PSA test metho dology used is the Electrochemiluminescence Immunoassay by [employer]. Total PSA values by differing methodologies cannot be interchanged. Blood BLOOD SPECIMEN / Unknown Venipuncture / Unknown 09/29/2024 3:45 PM EDT 09/29/2024 3:45 PM EDT us Erik Cassidy MD LABORATORY Final Resul t [facility] [place] [address], * (ABNORMAL) UA DIP, URINE (POC) (09/29/2024 3:05 PM EDT) GLUCOSE UA (POCT) 500(A) Negative mg/dL [facility] BILIRUBIN UA (POCT) Negative Negative [facility] KETONE UA (POCT) Negative Negative mg/dL [facility] SPECIFIC GRAVITY UA (POCT) 1.010 1.005 - 1.030 [facility] HEMOGLOBIN/BLOOD UA (POCT) Small(A) Negative [facility] PH UA (POCT) 5.5 4.5 - 8.0 [facility] PROTEIN UA (POCT) Negative Negative mg/dL [facility] UROBILINOGEN UA (POCT) 0.2 Normal E.U./dL [facility] NITRITE UA (POCT) Negative Negative [facility] LEUKOCYTES UA (POCT) Negative Negative [facility] COLOR UA (POCT) Dark yellow Fa [facility] CLARITY UA (POCT) Clear [facility] 09/29/2024 3:05 PM EDT Narrative [facility] POINT OF CARE - 09/29/2024 3:05 PM EDT Location:[facility], [address] [place] [address], [address] us Erik Cassidy MD POC TESTING Final Resul t [facility] POINT OF CARE [address] from Last 3 Months Insurance * Guarantor: Mk Agustin Account Type Relation to Patient Date of Phone Billing Address Personal/Family Self 1950 [address] [place] [address] [employer] SUPPLEMENT MEDICARE * Guarantor: Mk Agustin Account Type Relation to Patient Date of Phone Billing Address Self Pay Self 1950 [address] [place] [address] Advance Directives Documents on File Type Date Recorded Patient Front Sight Attacher Expl anation Advance Directive(s) 08/25/2018 2:52 PM Care Teams Uniform Room Attendant Relationship Specialty Start Date End Date Erik Lopez II, DO [address] [place] [address] PCP - General Family Medicine 03/05/23 Nato Rosario MD [address] [place] [address] [place] [address] Physician Radiation Oncology 11/24/19 Erik Lopez II, DO [address] [place] [address] Referring Family Medicine 10/22/23
--- OUTSIDE RECORDS SUMMARY | 2024-11-16 15:51 | XMS_ITS | Patient Health Record ---
Demographics Address [address] [place] [address] Mobile Email Address Preferred Language en Marital Status Zoroastrian Affiliation Unknown Race White Ethnic Group Not or Lati no Author Organization [facility] Address [address] [place] [address] Support Name Relationship Address Phone SELENE JAMES Emergency Contact 04/[address] [place] [address] DOYLE JAMES Guarantor Unknown [phone] Care Team Providers Care Seasonal Recruiter Name Role Phone Maoyahir Shelly Primary Care Provider [phone] Dr. Femi Chappell Unavailable [phone] Reason For Referral No Information Encounters Encounter Location Date Provider Diagnosis [facility] [address] [place] [address] 09/27/2024 Femi Dobbins Encounter for den tutu [...]
--- OUTSIDE RECORDS SUMMARY | 2024-11-16 15:51 | XMS_ITS | Encounter Summary ---
Demographics Address [address] [place] [address] Home Phone Mobile Phone Phone Email Address Preferred Language ENG Marital Status Oriental Orthodox Affiliation Unknown Race White Ethnic Group Not or Lati no Author Organization [facility] Address [address] [place] [address] Support Name Relationship Address Phone Isabela Agustin Spouse [address] [place] [address] Care Team Providers Care Displayer Merchandise Name Role Phone Nato Rosario MD Unavailable [phone] John BLANDON DO, Robert James Primary Care Provid er John BLANDON DO, Robert James Unavailable [phone] Source Comments In the event this information is protected by the Federal Confidentiality of Alcohol and Drug AbusePatient Records regulations: The Federal rules restrict any use of the information to criminally investigate or prosecute any alcohol or drug abuse patient.[facility] Encounter Details Date Type Department Care Team (Late st Contact Info) Description 03/09/2024 Patient Msg Urology [address] [place], [place] [phone] Erik Cassidy MD [address] [place] [address] PSA Social History Tobacco Use [...] is lower risk 6 09/05/2022 Data from: https://www.neighborhoodatlas.[facility]/. Last address used for calculation [address]01 [facility] 09/05/2022 Sex and Gender Information Value [...] 9:30 AM EDT Office Visit Orthopaedics [address] [place] [address] Mary Lemus PA-C [address] [place] [address] 4 month f/u 02/25/2025 2:00 PM EST Office Visit Urology [address] [place] [address] Ellie Arroyo APRN.BOTTLE ASSEMBLER [address] [place] [address] FOLLOW UP 03/03/2025 9:30 AM EST Office Visit Urology [address] [place] [address] Janell Hill MD [address] [place], [place] [address] 6 month Cystoscopy 03/07/2025 10:00 AM EST Office Visit [facility] [address] [place] [address] [place] [address] Lab 03/14/2025 10:00 AM EST Office Visit Radiation Oncology [address] [place] [address] Sigifredo Corona MD [address] [place] [address] Lab documented as of this encounter Goals Goal Patient Goal Type Associated Problems Recent Progress Patient-Stated? Author Blood Pressure < 130/80 Blood Pressure 132/72( 025 3:01 PM EDT) No Yuan Sloan MD documented as of this encounter Visit Diagnoses Not on filedocumented in this encounter Care Teams Displayer Merchandise Relationship Specialty Start Date End Date Erik Lopez II, DO [address] [place] [address] [place] [address] PCP - General Family Medicine 03/05/23 Nato Rosario MD [address] [place] [address] [place] [address] Physician Radiation Oncology 11/24/19 Erik Lopez II, DO [address] [place] [address] Referring Family Medicine 10/22/23 documented as of this encounter
--- OUTSIDE RECORDS SUMMARY | 2024-11-16 15:51 | XMS_ITS | Encounter Summary ---
Demographics Address [address] [place] [address] Home Phone Mobile Phone Phone Email Address Preferred Language ENG Marital Status Baptism Affiliation Unknown Race White Ethnic Group Not or Lati no Author Organization [facility] Address [facility] [place] [address] Support Name Relationship Address Phone Isabela Agustin Spouse [address] [place] [address] Care Team Providers Care Cooker Pie Filling Name Role Phone Bipin Ornelas MD Primary Care Provider Nato Rosario MD Unavailable [phone] John BLANDON DO, Robert James Primary Care Provid er John BLANDON DO, Robert James Unavailable [phone] Source Comments In the event this information is protected by the Federal Confidentiality of Alcohol and Drug AbusePatient Records regulations: The Federal rules restrict any use of the information to criminally investigate or prosecute any alcohol or drug abuse patient.[facility] Encounter Details Date Type Department Care Team (Late st Contact Info) Description 08/19/2019 Patient Msg Urology [address] [place] [address] Erik Cassidy MD [address] [place] [address] PSA Social History Tobacco Use [...] 9:30 AM EDT Office Visit Orthopaedics [address] [place] [address] Mary Lemus PA-C [address] [place] [address] 4 month f/u 02/25/2025 2:00 PM EST Office Visit Urology [address] [place] [address] Ellie Arroyo APRN.LABEL TACKER [address] [place] [address] FOLLOW UP 03/03/2025 9:30 AM EST Office Visit Urology [address] [place] [place] [address] Janell Hill MD [address] [place], [place] [address] 6 month Cystoscopy 03/07/2025 10:00 AM EST Office Visit [facility] [address] [place] [address] Lab 03/14/2025 10:00 AM EST Office Visit Radiation Oncology [address] [place] [address] Sigifredo Corona MD [address] [place] [address] Lab documented as of this encounter Visit Diagnoses Not on filedocumented in this encounter Care Teams Cooker Pie Filling Relationship Specialty Start Date End Date Bipin Ornelas MD [address] [place] [address] PCP - General Family Medicine 08/25/18 03/04/23 Erik Lopez II, DO [address] [place] [address] PCP - General Family Medicine 03/05/23 Nato Rosario MD [address] [place] [address] Physician Radiation Oncology 11/24/19 Erik Lopez II, DO [address] [place] [address] Referring Family Medicine 10/22/23 documented as of this encounter
--- OUTSIDE RECORDS SUMMARY | 2024-11-16 15:51 | XMS_ITS | Patient Health Record ---
Demographics Address [address] [place] [address] Mobile Email Address Preferred Language en Marital Status Sabianism Affiliation Unknown Race White Ethnic Group Not or Lati no Author Organization [facility] Address [address] [place] [address] [place] [address] Support Name Relationship Address Phone Isabeal Agustin Emergency Contact [address] [place] [address] Mk Agustin Guarantor Unknown Unavailable Care Team Providers Care Registered Nurse Maternal Child Name Role Phone Erik Lopez Primary Care Provider UnavailJamarcus Moncada Unavailable [phone] Allergies Allergen (clinical drug ingredient) Drug/Non Drug [...] W/U Status Risk Notes Problem Pain in right toe(s) (M79.674) Active confirmed Problem Pain in limb (12970030) Pain in left toe(s) (M79.675) Active confirmed Problem Tinea unguium (584906350) Tinea unguium (B35.1) Active confirmed Problem Depression (586081470) Depression, unspecified (F32.A) Active confirmed Vital Signs Blood pressure diastolic 84 mm Hg 04/01/2024 Height 71 in 04/01/2024 Blood pressure systolic 126 mm Hg 04/01/2024 Weight 215 lbs 04/01/2024 BMI 29.98 04/01/2024 Encounters Encounter Location Date Provider Diagnosis [facility] [address] [place] [address] 04/01/2024 Jamarcus Truong Depression, unspecified F32.A ; [...] End Date Medicare Part B J-15 Part [facility] [place] [address] [place] [address] [id number] Mk Agustin Self - patient is the insured [employer] [address] [place] [address] [id number] Mk Agustin Self - patient is the insured Medical (General) History Medical History History ICD Code Depression Heart attack Rheumatoid arthritis h/o prostate cancer Hyperlipidemia arrhythmia Surgical History Surgery Date(Month/Year) prostate 2018 Hospitalization History Reason Date(Month/Year) heart attack 2018
--- OUTSIDE RECORDS SUMMARY | 2024-11-16 15:51 | XMS_ITS | Encounter Summary ---
Demographics Address [address] [place] [address] Home Phone Mobile Phone Phone Email Address Preferred Language ENG Marital Status Christian Affiliation Unknown Race White Ethnic Group Not or Lati no Author Organization [facility] Address [address] [place] [address] Support Name Relationship Address Phone Isabela Agustin Spouse [address] [place] [address] Care Team Providers Care Vp Ad Sales West Name Role Phone Nato Rosario MD Unavailable [phone] John BLANDON DO, Robert James Primary Care Provid er John BLANDON DO, Robert James Unavailable [phone] Source Comments In the event this information is protected by the Federal Confidentiality of Alcohol and Drug AbusePatient Records regulations: The Federal rules restrict any use of the information to criminally investigate or prosecute any alcohol or drug abuse patient.[facility] Encounter Details Date Type Department Care Team (Late st Contact Info) Description 02/10/2024 Patient Msg Sp[facility] Center [address] [place] [id number] Mary Mabry, KEMAL[facility] [address] [place] [address] wrist specialist Social History Tobacco [...] is lower risk 6 09/05/2022 Data from: https://www.neighborhoodatlas.medicine.[facility].edu/. Last address used for calculation 7 [address]01 [facility] 09/05/2022 Sex and Gender Information Value [...] EDT Office Visit Orthopaedics [address] [place] [address] Mary Lemus PA-C [address] [place] [address] 4 month f/u 02/25/2025 2:00 PM EST Office Visit Urology [address] [place] [address] Ellie Arroyo APRN.SALES EXHIBITOR [address] [place] [address] FOLLOW UP 03/03/2025 9:30 AM EST Office Visit Urology [address] [place] [address] Janell Hill MD [address] [place], [place] [address] 6 month Cystoscopy 03/07/2025 10:00 AM EST Office Visit [facility] [address] [place] [address] Lab 03/14/2025 10:00 AM EST Office Visit Radiation Oncology [address] [place] [address] Sigifredo Corona MD [address] [place] [address] Lab documented as of this encounter Goals Goal Patient Goal Type Associated Problems Recent Progress Patient-Stated? Author Blood Pressure < 130/80 Blood Pressure 132/72( 025 3:01 PM EDT) Yuan Verdugo MD documented as of this encounter Visit Diagnoses Not on filedocumented in this encounter Care Teams Vp Ad Sales West Relationship Specialty Start Date End Date Erik Lopez II, DO [address] [place] [address] PCP - General Family Medicine 03/05/23 Nato Rosario MD [address] [place] [address] [place] [address] Physician Radiation Oncology 11/24/19 Erik Lopez II, DO [address] [place] [address] Referring Family Medicine 10/22/23 documented as of this encounter
--- OUTSIDE RECORDS SUMMARY | 2024-11-16 15:51 | XMS_ITS ---
Demographics Address [address] [place] [address] Home Phone Mobile Phone Phone Email Address Preferred Language ENG Marital Status Anabaptist Affiliation Unknown Race White Ethnic Group Not or Lati no Author Organization [facility] Address [address] [place], [place] [id number] Support Name Relationship Address Phone Isabela Agustin Spouse 7 [address] [place] [address] Care Team Providers Care Medical Records Library Professor Name Role Phone Nato Rosario MD Unavailable [phone] John BLANDON DO, Robert James Primary Care Provid er John BLANDON DO, Robert James Unavailable [phone] Active Problems Problem Noted Date Diagnosed Date [...] rare (<1.0%). Isolated VEs were frequent (7.9%, [address]), VE Couplets were rare (<1.0%, 3272), and [...] 3:59 PM EDT): Assessment: Lipitor Patient is Mosque Overview (08/25/2018): Refuses blood products Assessment & [...]
--- OUTSIDE RECORDS SUMMARY | 2024-11-16 15:51 | XMS_ITS | Encounter Summary ---
Demographics Address [address] [place] [address] Home Phone Mobile Phone Phone Email Address Preferred Language ENG Marital Status Protestant Affiliation Unknown Race White Ethnic Group Not or Lati no Author Organization [facility] Address [address] [place] [address] Support Name Relationship Address Phone Isabela Agustin Spouse 7 [address] [place] [address] Care Team Providers Care Digital Data Analyst Name Role Phone Bipin Ornelas MD Primary Care Provider Nato Rosario MD Unavailable [phone] John BLANDON DO, Robert James Primary Care Provid er John BLANDON DO, Robert James Unavailable [phone] Source Comments In the event this information is protected by the Federal Confidentiality of Alcohol and Drug AbusePatient Records regulations: The Federal rules restrict any use of the information to criminally investigate or prosecute any alcohol or drug abuse patient.[facility] Encounter Details Date Type Department Care Team (Late st Contact Info) Description 09/21/2019 Get Medical Advice Urology [address] [place] [address] Janell Meyer, RIGGER SUPERVISOR.[facility] [address] [place] [address] RE: Medication Question (Not Renewal) [...] 9:30 AM EDT Office Visit Orthopaedics [address] [place] [address] Mary Lemus PA-C [address] [place] [address] 4 month f/u 02/25/2025 2:00 PM EST Office Visit Urology [address] [place] [address] Ellie Arroyo APRN.SAFETY RELIEF VALVE TECHNICIAN [address] [place] [address] FOLLOW UP 03/03/2025 9:30 AM EST Office Visit Urology [address] [place] [address] Janell Hill MD [address] [place], [place] [address] 6 month Cystoscopy 03/07/2025 10:00 AM EST Office Visit [facility] [address] [place] [address] [place] [address] Lab 03/14/2025 10:00 AM EST Office Visit Radiation Oncology [address] [place] [address] Sigifredo Corona MD [address] [place] [address] Lab documented as of this encounter Visit Diagnoses Not on filedocumented in this encounter Care Teams Digital Data Analyst Relationship Specialty Start Date End Date Bipin Ornelas MD [address] [place] [address] PCP - General Family Medicine 08/25/18 03/04/23 Erik Lopez II, [address] [place] [address] PCP - General Family Medicine 03/05/23 Nato Rosario MD [address] [place] [address] [place] [address] Physician Radiation Oncology 11/24/19 Erik Lopez II, DO [address] [place] [address] Referring Family Medicine 10/22/23 documented as of this encounter
== END 2024-11-16 15:49 | disposition home or self-care (01) ==
LOC: CARD 15:48
PROVIDERS: PCP Family Medicine Adult Medicine; Visit Provider Internal Medicine Cardiovascular Disease
DX: R94.31 Abnormal electrocardiogram [ECG] [EKG] (principal)
CPT/HCPCS: 93306; 93356